=== PATIENT | female | born 1940 | race Asian ===

== ENCOUNTER 2017-09-28 09:01 | Day surgery (SDC) | payer OTHER ==
[2017-09-20 12:12] VITALS: BMI 21.9
[2017-09-28] MEDS: CIPROFLOXACIN 0.3% EYE DROPS 5 ML BOTTLE ONE ×3 (09:45→09:55)
[2017-09-28] MEDS: PHENYLEPHRINE 2.5% OPHTH SOLN 15 ML BOTTLE ONE ×3 (09:45→09:55)
[2017-09-28] MEDS: TROPICAMIDE 1% OPHTH SOLN 15 ML BOTTLE ONE ×3 (09:45→09:55)
[2017-09-28] MEDS: CYCLOPENTOLATE 2% OPHTH SOLN 2 ML BOTTLE ONE ×3 (09:45→09:55)
[2017-09-28] MEDS ORDERED: CARBACHOL 0.01% INTRA-OCULAR 1.5 ML VIAL ONE (11:01)
[2017-09-28] MEDS ORDERED: BSS (NA/CA/MG/K) BALANCED SALT SOLUTION OPHTH SOLN 15 ML BOTTLE ONE (11:01)
[2017-09-28] MEDS ORDERED: NEO/POLYMYX B SULF/DEXAMETH OPHTHALMIC 5ML BOTTLE ONE (11:01)
[2017-09-28] MEDS ORDERED: MIDAZOLAM HCL 2 MG/2 ML SINGLE DOSE VIAL ONE (11:06)
[2017-09-28 12:07] VITALS: BP 116/74; PULSE 62; TEMP 98.2
--- NOTE | 2017-09-28 12:22 | OP ---
DATE OF PROCEDURE: 09/28/2017 OPERATIVE PROCEDURE: Lens Phacoemulsification with Posterior Chamber Intraocular Lens Placement Left Eye PREOPERATIVE DIAGNOSIS: Visually Significant Cataract of Left Eye POSTOPERATIVE DIAGNOSIS: Visually Significant Cataract of Left Eye SURGEON: Rock Rocha M.D. ANESTHESIA: MAC ANESTHESIOLOGIST: PROCEDURE: The patient was brought to the operating room and placed under monitored anesthesia care by Anesthesia. A drop of Tetracaine was then placed over the left eye. The patient was then prepped and draped in the usual sterile manner. A speculum was then placed over the left eye. The eye was then well irrigated with copious amounts of BSS (balanced salt solution). The operating microscope was then moved into position. A paracentesis was performed using a 15 degree blade. At this point 0.5 mL of 1% preservative-free lidocaine was injected into the anterior chamber. Amvisc plus was then injected into the anterior chamber. A clear corneal incision was then formed using a 2.2 mm keratome. A capsulorrhexis was then performed in a continuous circular fashion beginning with a cystotome, completed with an Utratas forceps. Hydrodissection was then performed using BSS on a cannula. The phaco probe was then introduced through the corneal wound and the cataract was removed using the phaco chop technique. Approximately 3 seconds of absolute phaco time was used. The remaining cortex was then removed using irrigation and aspiration with an I/A probe. The capsule was then filled with regular Amvisc and the capsule was noted to be intact. A previously selected foldable posterior chamber intraocular lens was then injected into the capsule through the corneal wound using a lens injector. It was then dialed into position using a Sinskey hook. The Amvisc was then removed using irrigation and aspiration. Miostat was then injected through the paracentesis to constrict the pupil. The paracentesis and corneal wound were then hydrated and noted to be water tight. A drop of Maxitrol was then placed over the eye. The speculum was removed and clear shield was taped over the eye. The patient tolerated the procedure well and there were no surgical complications. The patient was asked to follow up in my office the next day. ROCK ROCHA M.D. RYAN/[id number]
== END 2017-09-28 12:09 | disposition home or self-care (01) ==
LOC: FASU 09:01
PROVIDERS: ATTEND Ophthalmology
PROC: 08RK3JZ Replacement of Left Lens with Synthetic Substitute, Percutaneous Approach (ICD-10-PCS; principal; 2017-09-28 11:21)
DX: H26.8 Other specified cataract (principal)

== ENCOUNTER 2018-04-09 10:27 | Inpatient (IN) | payer OTHER ==
--- NOTE | 2018-04-09 11:00 | PDOC ---
History of Present Illness - General Stated Complaint: POSSIBLE STROKE Time Seen by Provider: 04/09/18 11:00 - History of Present Illness Initial Comments: 77 year old female with PMH of TIA (a few years in the past), HTN, Hypothyroidism, GERD, severe vertigo, and HLD presenting with difficulty expressing herself since 8:30 Am. She woke up this morning and felt well until she tried to get out of bed when her vertigo presented with great intensity. She took her meclizine, layed back down and states that around 8:30 she began to feel weak and felt that her speech was altered in that she had difficulty finding the correct words. She also admitted to some paresthesias down her legs bilaterally with right worse than left. She has been slightly improved since it started but she is still having some mild difficulty finding the correct words. She is only on aspirin and no other blood thinners. She did have a headache developing during our conversation that she did not have earlier. Denies any fevers, chills, nausea, vomiting,diarrhea, or other symptoms. 04/09/18 11:17 NIH Stroke Scale - Last Known Well Date/Time & Onset Date Last Known Well: 04/09/18 Time Last Known Well: 08:29 - Initial Evaluation Level of consciousness: Alert Ask patient the month and their age: Answers both correctly Ask patient to open & close eyes; make fist and let go: Obeys both correctly Best gaze (horizontal eye movement): Normal Visual field testing: No visual field loss Facial paresis (Show teeth/raise eyebrows/close eyes tight): Normal symmetrical movement Motor Function: Left Arm: Normal Motor Function: Right Arm: Normal (extends arm 90 (or 45) degrees for 10 seconds without drift Motor Function: Left Leg: Normal (extends leg 30 degrees for 5 seconds without drift) Motor Function: Right Leg: Normal (extends leg 30 degrees for 5 seconds without drift) Limb Ataxia: No ataxia Sensory(Use pinprick test arms,legs,trunk,face/side to side): Normal Best language (Describe picture, name items, read sentences): Mild to moderate aphasia Dysarthria (read several words): Normal articulation Extinction and Inattention: No abnormality (No obvious aphasia noted on the exam but patient claims that she is having difficulty finding the correct words. ) - Total Score NIH Stroke Scale Score: 1 Past History - Past Medical History Allergies/Adverse Reactions: Allergies Allergy/AdvReac Type Severity Reaction Status Date / Time ezetimibe [From Zetia] Allergy Intermediate Rash Verified 04/09/18 11:06 hydrochlorothiazide Allergy Intermediate Rash Verified 04/09/18 11:06 Sulfa (Sulfonamide Allergy Intermediate Rash Verified 04/09/18 11:06 Antibiotics) benzocaine Allergy Unknown UNKNOWN Verified 04/09/18 11:06 FRAGRANCES Allergy Intermediate Cough Uncoded 04/09/18 11:06 Home Medications: Ambulatory Orders Levothyroxine [Synthroid -] 75 mcg PO DAILY 04/09/18 Losartan Potassium 100 mg PO DAILY 04/09/18 Metoprolol Tartrate 100 mg PO DAILY 04/09/18 Nifedipine ER [Procardia XL -] 30 mg PO DAILY 04/09/18 Ranitidine [Zantac -] 150 mg PO BID 04/09/18 Rosuvastatin Calcium [Crestor] 10 mg PO DAILY 04/09/18 Clopidogrel Bisulfate [Plavix -] 75 mg PO DAILY #30 tablet 04/10/18 Anemia: Yes Asthma: No Cancer: No Cardiac Disorders: Yes (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) CVA: No COPD: No CHF: No Dementia: No Diabetes: No GI Disorders: Yes (GERD) Disorders: No HTN: Yes Hypercholesterolemia: Yes Liver Disease: No Seizures: No Thyroid Disease: Yes - Surgical History Abdominal Surgery: No Appendectomy: Yes (EARLY ) Cardiac Surgery: No Cholecystectomy: No Lung Surgery: No Neurologic Surgery: No Orthopedic Surgery: Yes (LEFT shoulder arthroscopy 2007) - Immunization History Immunization Up to Date: Yes - Suicide/Smoking/Psychosocial Hx Smoking Status: No Smoking History: Never smoked Have you smoked in the past 12 months: No Number of Cigarettes Smoked Daily: 0 Hx Alcohol Use: No Drug/Substance Use Hx: No Substance Use Type: None Hx Substance Use Treatment: No Review of Systems - Review of Systems Constitutional: No: Diaphoresis, Fever, Loss of Appetite HEENTM: No: Blurred Vision, Tearing, Cataracts Respiratory: No: Cough, Orthopnea, Shortness of Breath Cardiac (ROS): No: Chest Pain, Edema, Irregular Heart Rate ABD/GI: No: Diarrhea, Nausea, Vomiting : No: Dysuria, Discharge, Frequency Musculoskeletal: No: Back Pain, Joint Pain, Joint Swelling Integumentary: No: Bruising, Lesions, Lumps Neurological: Yes: Headache, Paresthesia, Other (aphasia). No: Numbness, Pre- Existing Deficit Psychiatric: No: Anxiety, Depression Hematologic/Lymphatic: No: Anemia, Blood Clots, Easy Bleeding *Physical Exam - Physical Exam General Appearance: Yes: Nourished, Appropriately Dressed. No: Apparent Distress HEENT: positive: EOMI, MARIA C, Normal ENT Inspection, Normal Voice Neck: positive: Trachea midline, Normal Thyroid, Supple. negative: Tender, Rigid Respiratory/Chest: positive: Lungs Clear, Normal Breath Sounds. negative: Chest Tender, Respiratory Distress, Accessory Muscle Use Cardiovascular: positive: Regular Rhythm, Regular Rate Gastrointestinal/Abdominal: positive: Normal Bowel Sounds, Flat, Soft. negative : Tender Lymphatic: negative: Adenopathy, Tenderness Musculoskeletal: positive: Normal Inspection. negative: CVA Tenderness Extremity: positive: Normal Capillary Refill, Normal Inspection, Normal Range of Motion. negative: Tender Integumentary: positive: Normal Color, Dry, Warm Neurologic: positive: Fully Oriented, Alert, Normal Mood/Affect, Normal Response , Motor Strength / ED Treatment Course - LABORATORY CBC & Chemistry Diagram: 04/10/18 05:30 04/10/18 05:30 Medical Decision Making - Medical Decision Making 77 year old with history of TIA presenting with bilateral numbness of legs and speech difficulty concerning for CVA. Andre infante was called and patient was expedited to CT scan which was ultimately negative for acute bleed. Labs also were WNL. Discussed the case with neurology on the phone and they felt that this patient should come into the hospital for further workup. Patient was given asa and statin. Neurology came to examine the patient and patient was admitted to medicine service fur further workup. 04/09/18 11:59 *DC/Admit/Observation/Transfer Diagnosis at time of Disposition: Cerebrovascular accident (CVA) Qualifiers: CVA mechanism: unspecified Qualified Code(s): I63.9 - Cerebral infarction, unspecified - Discharge Dispostion Disposition: VNS/HOME HEALTH CARE Condition at time of disposition: Good Decision to Admit order: Yes - Prescriptions - Referrals - Patient Instructions - Post Discharge Activity
[2018-04-09] MEDS ORDERED: ACETAMINOPHEN 1000 MG/100 ML VIAL (NON FORMULARY) IVPB ONE (11:25)
--- NOTE | 2018-04-09 11:36 | PDOC ---
Attending Attestation - Resident Resident Name: Pete Damon - ED Attending Attestation I have performed the following: I have examined & evaluated the patient, The case was reviewed & discussed with the resident, I agree w/resident's findings & plan, Exceptions are as noted - HPI HPI: 04/09/18 12:13 The patient is a 74 year old female with a significant past medical history of PMH of TIA (a few years in the past), HTN, Hypothyroidism, GERD, severe vertigo , and HLD who presents to the ED complaining of difficulty speaking, generalized weakness, room spinning dizziness, and RLE numbness and cold sensation. The patient notes these symptoms arose around 8:30 Am when she was trying to get out of bed. She reports to have a difficult time speaking and finding the right words. She reports to feel overall weak. Of note, the previous TIA presentation presented with amnesia for a few hours. The patient denies chest pain, shortness of breath. Denies fever, chills, nausea, vomit, diarrhea and constipation. Denies dysuria, frequency, urgency and hematuria. Allergies: ezetimibe, hydrochlorothiazide, & more - Physicial Exam PE: 04/09/18 11:59 GENERAL: Awake, alert, and fully oriented, in no acute distress HEAD: No signs of trauma EYES: PERRLA, EOMI, sclera anicteric, conjunctiva clear ENT: Oropharynx clear without exudates. Moist mucosa LUNGS: Breath sounds equal, clear to auscultation bilaterally. No wheezes, and no crackles HEART: Regular rate and rhythm, normal S1 and S2, no murmurs, rubs or gallops ABDOMEN: Soft, nontender, normoactive bowel sounds. No guarding, no rebound. EXTREMITIES: Normal range of motion, no edema. No cords, erythema, or tenderness NEUROLOGICAL: very mild expressive aphasia, cranial nerves intact, negative pronator drift, 5/5 strength in all 4 extremities, normal sensation to light touch in all 4 extremities, normal cerebellar exam, normal gait, normal tone - Medical Decision Making 04/09/18 12:09 77yo F hx TIA, HL, HTN, hypothyroidism, vertigo presents to the ED with improving expressive aphasia and resolved RLE numbness. Pt also reports R sided headache and vertiginous sxs. Initially hypertensive to 160/90, but BP down to 130s systolic at this time. Exam with very mild expressive aphasia, otherwise neuro intact. Son at bedside states aphasia a few hours ago was worse, now is almost resolved. CTH negative. DDx includes CVA vs TIA vs atypical migraine. Will hold off on TPA given low NIHSS. ABCD2 score @ moderate risk. Plan: -labs -neuro c/s -treat headache -admit Heart Score/ECG Review #1 04/09/18 12:08 Twelve-lead EKG was performed and reviewed by me. Normal sinus rhythm, rate 65. Normal axis. No ST elevations. Diffuse T-wave flattening. When compared to EKG from October 2014, no significant change.
[2018-04-09] MEDS ORDERED: ACETAMINOPHEN INJECTION 100 ML IVPB ONE (11:39)
--- NOTE | 2018-04-09 11:44 | PDOC ---
tPA Exclusion Checklist 0-3hr - Time Elapsed Date last known well: 04/09/18 Time last known well: 08:29 Elaspsed time: Day(s) and 3 Hour(s) and 10 Minutes - Thrombolytic Therapy Candidate Is the patient eligible for Thrombolytic Therapy?: No - Exclusion Criteria 0-3hr SBP greater than 185 or DBP greater than 110mmHg despite tx: No Recent IC/spinal surgery,head trauma or stroke w/in last 3mo: No Hx of previous IC hemorrhage, IC neoplasm, AVM or aneurysm: No Active internal bleeding: No Blding diathesis(low plt ct, inc PTT,INR>1.7 or use of NOAC): No Symptoms suggest subarachnoid hemorrhage: No CT demonstrates multilobar infarct(>1/3 cerebral hemiphere): No Arterial puncture at noncompressible site in previous 7 days: No Blood glucose concentration less than 50mg/dL (2.7mmol/L): No - Relative Exclusion Criteria 0-3h Life expectancy <1yr/severe co-morbid illness/[employer] on admit: No : No Patient/family refused: No Rapid improvement: No Stroke severity too mild: No Recent acute KS (w/in previous 3 months): No Seizure at onset with postictal residual neuro impairments: No Major surgery or serious trauma w/in previous 14 days: No Recent GI or hemorrhage (w/in previous 21 days): No - Ineligibility reason(s) Reasons No tPA given: See reason(s) noted above (Low stroke score and questionable true aphasia, discussed with neurology.)
[2018-04-09] MEDS: SODIUM CHLORIDE 1,000 ML IV SCH (11:45)
[2018-04-09 11:51] LABS: BASO % 0.9 % (0-2.0); EOS % 2.2 % (0-4.5); HEMATOCRIT 35.1 % (32.4-45.2); LYMPH % 11.5 % (8-40); MCH 30.7 pg (25.7-33.7); MCHC 34.3 g/dl (32.0-36.0); MEAN CELL VOLUME 89.6 fl (80-96); NEUT % 78.4 % (42.8-82.8); PLATELET COUNT 158 K/MM3 (134-434); RBC 3.92 M/mm3 (3.60-5.2); RDW 13.8 % (11.6-15.6); WHITE BLOOD COUNT 6.5 K/mm3 (4.0-10.0)
[2018-04-09] MEDS ORDERED: ASPIRIN 81 MG CHEWABLE TABLETS PO ONE (11:52)
[2018-04-09] MEDS ORDERED: ATORVASTATIN CA 40 MG TABLET (FP) PO ONE (11:58)
[2018-04-09 12:03] LABS: INR 1.02 (0.83-1.09)
[2018-04-09] MEDS ORDERED: ASPIRIN 81 MG CHEWABLE TABLETS ONE (12:10)
[2018-04-09] MEDS ORDERED: ATORVASTATIN CA 40 MG TABLET (FP) ONE (12:10)
[2018-04-09 12:36] LABS: ALK PHOS 94 U/L (45-117); ANION GAP 4 MMOL/L (8-16); BILIRUBIN,TOTAL 0.9 mg/dL (0.2-1); BLOOD UREA NITROGEN 21 mg/dL (7-18); CALCIUM 9.4 mg/dL (8.5-10.1); CHLORIDE 110 mmol/L (98-107); CHOLESTEROL 187 mg/dL (50-200); CO2 27 mmol/L (21-32); CREATININE 0.9 mg/dL (0.55-1.3); GLUCOSE,RANDOM 102 mg/dL (74-106); HDL CHOLESTEROL 90 mg/dL (40-60); POTASSIUM 4.2 mmol/L (3.5-5.1); SGOT/AST 22 U/L (15-37); SGPT/ALT 24 U/L (13-61); SODIUM 141 mmol/L (136-145); TRIGLYCERIDES 66 mg/dL (0-150)
--- NOTE | 2018-04-09 14:05 | CON.NEURO ---
Consult Consult Specialty:: NEUROLOGY-[facility] - History of Present Illness History of Present Illness: he patient is a 74 year old female with a significant past medical history of PMH of TIA x 2, hypercalcemia/hyperparathyroidism, HTN, Hypothyroidism, GERD, severe vertigo episodic x years which appears to be peripheral by her description rx.with meclizine, and HLD who presents to the ED complaining of difficulty speaking, generalized weakness, room spinning (vertigo), and RLE numbness and cold sensation . The patient notes these symptoms arose around 8: 30 Am when she was trying to get out of bed. She reports to have a difficult time speaking and finding the right words. She reports to feel overall weak. Of note, the previous TIA presentation presented with amnesia for a few hours. This morning she tells me she had about an hour of "difficulty getting words out "(unclear whether dysarthria or aphasia), numbness/tingling in both legs, and ? ? weakness. All these resolved in less than 2 hours. The patient denies chest pain, shortness of breath. Denies fever, chills, nausea, vomit, diarrhea and constipation. Denies dysuria, frequency, urgency and hematuria. - Past Medical History Cardio/Vascular: Yes: HTN, Hyperlipdemia, Other (MVP) Musculoskeletal: Yes: Osteoarthritis Endocrine: Yes: Hypothyroidism - Alcohol/Substance Use Hx Alcohol Use: No - Smoking History Smoking history: Never smoked Have you smoked in the past 12 months: No Aproximately how many cigarettes per day: 0 - Social History Usual Living Arrangement: With Spouse ADL: Independent History of Recent Travel: No Home Medications - Allergies Allergies/Adverse Reactions: Allergies Allergy/AdvReac Type Severity Reaction Status Date / Time ezetimibe [From Zetia] Allergy Intermediate Rash Verified 04/09/18 11:06 hydrochlorothiazide Allergy Intermediate Rash Verified 04/09/18 11:06 Sulfa (Sulfonamide Allergy Intermediate Rash Verified 04/09/18 11:06 Antibiotics) benzocaine Allergy Unknown UNKNOWN Verified 04/09/18 11:06 FRAGRANCES Allergy Intermediate Cough Uncoded 04/09/18 11:06 - Home Medications Home Medications: Ambulatory Orders Aspirin 81 mg PO DAILY 04/09/18 Levothyroxine [Synthroid -] 75 mcg PO DAILY 04/09/18 Losartan Potassium 100 mg PO DAILY 04/09/18 Metoprolol Tartrate 100 mg PO DAILY 04/09/18 Nifedipine ER [Procardia Xl -] 30 mg PO DAILY 04/09/18 Ranitidine [Zantac -] 150 mg PO BID 04/09/18 Rosuvastatin Calcium [Crestor] 10 mg PO DAILY 04/09/18 Physical Exam-Neuro Vital Signs: Vital Signs Temperature 97.4 F L 04/09/18 11:03 Pulse Rate 64 04/09/18 11:03 Respiratory Rate 18 04/09/18 11:03 Blood Pressure 162/90 04/09/18 11:03 O2 Sat by Pulse Oximetry (%) 100 04/09/18 11:03 Labs: CBC, BMP 04/09/18 11:47 04/09/18 11:47 INR, PTT INR 1.02 (0.83-1.09) 04/09/18 11:42 Imaging - Results Cat Scan: Report Reviewed (Without acute abn.) Assessment/Plan Pt. with hx. of peripheral vertigo x years, now with what is possibly a brain stem/vert.basilar TIA. Suggest: MRI brain, carotid doppler study/Echocardiogram. Would d/c ADSa and place on Plavix 75mg daily. Further manag. after above. Thank you, Michael Mcfadden MD
[2018-04-09] MEDS ORDERED: ACETAMINOPHEN 325 MG TABLET (FP) PO PRN (15:22)
--- NOTE | 2018-04-09 15:30 | HP ---
Admitting History and Physical - Primary Care Physician PCP: Eugene Payne - Admission Chief Complaint: I'm dizzy History of Present Illness: Ms Benedict is a pleasant 77 year old female who comes in with dizziness and slurred speech. She has a history of vertigo and takes meclizine for it. She woke up this morning and began to experience a severe case of vertigo. She says it was so severe she barely made it back to sit down. During this time she also noted slurred speech, however it is difficult to ascertain whether she had slurred speech or aphasia because she will say it was slurred at some point and at other times she said she had a hard time finding the words and that she had "a hard time speaking" (as it took her a lot of effort to speak/get the words out). She also noted weakness in both legs with tingling. She had nausea with the vertigo as well. She took her meclizine and since her blood pressure was elevated she also took her morning antihypertensives. Because she was having slurred speech she came into the hospital. She endorses a history of vertigo and says she needs to take meclizine about 3x a week. She also took a larger dose this morning, she normally takes 12.5mg and this am she took 25mg. She has chronic hearing loss/tinnitus, particularly in her left ear which she was told there was nothing to do. She also has chronic weakness and loss of balance with walking, stating she falls frequently with the last fall being yesterday. She has angina but did not have chest pain with this episode. She denies passing out , vision changes, shortness of breath, vomiting, diarrhea, constipation, difficulty or pain on urination, or swelling. History Source: Patient Limitations to Obtaining History: No Limitations - Past Medical History Cardiovascular: Yes: HTN, Hyperlipdemia, Other (MVP) Musculoskeletal: Yes: Osteoarthritis Endocrine: Yes: Hypothyroidism - Past Surgical History Past Surgical History: Yes: Appendectomy - Smoking History Smoking history: Never smoked Have you smoked in the past 12 months: No Aproximately how many cigarettes per day: 0 - Alcohol/Substance Use Hx Alcohol Use: No History of Substance Use: reports: None - Social History Usual Living Arrangement: Yes: With Child ADL: Independent History of Recent Travel: No Home Medications - Allergies Allergies/Adverse Reactions: Allergies Allergy/AdvReac Type Severity Reaction Status Date / Time ezetimibe [From Zetia] Allergy Intermediate Rash Verified 04/09/18 11:06 hydrochlorothiazide Allergy Intermediate Rash Verified 04/09/18 11:06 Sulfa (Sulfonamide Allergy Intermediate Rash Verified 04/09/18 11:06 Antibiotics) benzocaine Allergy Unknown UNKNOWN Verified 04/09/18 11:06 FRAGRANCES Allergy Intermediate Cough Uncoded 04/09/18 11:06 - Home Medications Home Medications: Ambulatory Orders Aspirin 81 mg PO DAILY 04/09/18 Levothyroxine [Synthroid -] 75 mcg PO DAILY 04/09/18 Losartan Potassium 100 mg PO DAILY 04/09/18 Metoprolol Tartrate 100 mg PO DAILY 04/09/18 Nifedipine ER [Procardia Xl -] 30 mg PO DAILY 04/09/18 Ranitidine [Zantac -] 150 mg PO BID 04/09/18 Rosuvastatin Calcium [Crestor] 10 mg PO DAILY 04/09/18 Family Disease History - Family Disease History Family Disease History: Other: Mother (muscular dystrophy) Review of Systems Findings/Remarks: Full review of systems obtained, as per HPI and otherwise negative Physical Examination Vital Signs: Vital Signs Temperature 36.3 C L 04/09/18 11:03 Pulse Rate 64 04/09/18 11:03 Respiratory Rate 18 04/09/18 11:03 Blood Pressure 162/90 04/09/18 11:03 O2 Sat by Pulse Oximetry (%) 100 04/09/18 11:03 Constitutional: Yes: Well Nourished, No Distress, Calm Eyes: Yes: Conjunctiva Clear, EOM Intact, PERRL HENT: Yes: Atraumatic, Normocephalic Cardiovascular: Yes: Regular Rate and Rhythm. No: Gallop, Murmur, Rub Respiratory: Yes: Regular, CTA Bilaterally. No: Rales, Rhonchi, Wheezes Gastrointestinal: Yes: Normal Bowel Sounds, Soft. No: Distention, Tenderness Extremities: Yes: WNL Edema: No ...Motor Strength: LLE (4/5) Labs: CBC, BMP 04/09/18 11:47 04/09/18 11:47 Imaging - Results Cat Scan: Report Reviewed Problem List - Problems (1) TIA (transient ischemic attack) Assessment/Plan: -possible posterior TIA vs CVA -case d/w neurology -admit to telemetry -MRI brain ordered -check ECHO and carotid ultrasound -check lipid profile in am -PT consult and fall risk precautions -change aspirin to plavix Code(s): G45.9 - TRANSIENT CEREBRAL ISCHEMIC ATTACK, UNSPECIFIED (2) Vertigo Assessment/Plan: -? peripheral vs central -as above -continue meclizine Code(s): R42 - DIZZINESS AND GIDDINESS (3) HTN (hypertension) Assessment/Plan: -continue procardia, metoprolol, and losartan -monitor Code(s): I10 - ESSENTIAL (PRIMARY) HYPERTENSION Qualifiers: Hypertension type: essential hypertension Qualified Code(s): I10 - Essential (primary) hypertension (4) Hyperlipidemia Assessment/Plan: -check lipid profile -continue crestor currently Code(s): E78.5 - HYPERLIPIDEMIA, UNSPECIFIED (5) Hypothyroidism Assessment/Plan: -continue synthroid Code(s): E03.9 - HYPOTHYROIDISM, UNSPECIFIED (6) Angina at rest Assessment/Plan: -stable Code(s): I20.8 - OTHER FORMS OF ANGINA PECTORIS
[2018-04-09] MEDS: RANITIDINE HCL 150 MG TABLET (FP) PO SCH (22:33)
[2018-04-09] MEDS ORDERED: LOSARTAN POTASSIUM 50 MG TABLET (FP) PO ONE (22:37)
[2018-04-10 01:51] VITALS: BMI 21.9
[2018-04-10 06:39] LABS: BASO % 1.2 % (0-2.0); EOS % 5.5 % (0-4.5); HEMATOCRIT 35.7 % (32.4-45.2); HEMOGLOBIN 12.3 GM/dL (10.7-15.3); LYMPH % 39.8 % (8-40); MCH 30.8 pg (25.7-33.7); MCHC 34.5 g/dl (32.0-36.0); MEAN CELL VOLUME 89.4 fl (80-96); MEAN PLT VOLUME 9.2 fl (7.5-11.1); MONO % 10.4 % (3.8-10.2); NEUT % 43.1 % (42.8-82.8); PLATELET COUNT 182 K/MM3 (134-434); RDW 13.6 % (11.6-15.6); WHITE BLOOD COUNT 4.9 K/mm3 (4.0-10.0)
[2018-04-10] MEDS ORDERED: LEVOTHYROXINE NA 75 MCG TABLET (FP) PO SCH (07:00)
[2018-04-10 07:16] LABS: URINE APPEARANCE CLEAR; URINE BILIRUBIN NEGATIVE (<2.0 mg/dL); URINE COLOR LTYELLOW; URINE GLUCOSE (UA) NEGATIVE (NEGATIVE); URINE KETONE NEGATIVE (NEGATIVE); URINE LEUK ESTERASE NEGATIVE (NEGATIVE); URINE NITRITE NEGATIVE (NEGATIVE); URINE PROTEIN NEGATIVE (NEGATIVE); URINE UROBILINOGEN NEGATIVE mg/dL (0.2-1.0)
[2018-04-10 07:20] LABS: CHOLESTEROL 193 mg/dL (50-200); HDL CHOLESTEROL 89 mg/dL (40-60); TRIGLYCERIDES 89 mg/dL (0-150)
[2018-04-10 07:36] LABS: ANION GAP 7 MMOL/L (8-16); BLOOD UREA NITROGEN 18 mg/dL (7-18); CALCIUM 9.4 mg/dL (8.5-10.1); CHLORIDE 112 mmol/L (98-107); CO2 24 mmol/L (21-32); CREATININE 0.9 mg/dL (0.55-1.3); GLUCOSE,RANDOM 94 mg/dL (74-106); MAGNESIUM 2.1 mg/dL (1.8-2.4); PHOSPHOROUS 3.3 mg/dL (2.5-4.9); POTASSIUM 3.9 mmol/L (3.5-5.1); SODIUM 143 mmol/L (136-145)
[2018-04-10] MEDS ORDERED: ASPIRIN 81 MG CHEWABLE TABLETS PO SCH (10:00)
[2018-04-10] MEDS ORDERED: METOPROLOL TARTRATE 50 MG TABLET (FP) PO SCH (10:00)
[2018-04-10] MEDS ORDERED: CLOPIDOGREL BISULFATE 75 MG TABLET (FP) PO SCH (10:00)
[2018-04-10] MEDS ORDERED: NIFEdipine E.R. 30 MG TABLET (FP) PO SCH (10:00)
[2018-04-10] MEDS ORDERED: LOSARTAN POTASSIUM 50 MG TABLET (FP) PO SCH (10:00)
[2018-04-10] MEDS: RANITIDINE HCL 150 MG TABLET (FP) PO SCH (10:25)
--- NOTE | 2018-04-10 10:37 | PN ---
Progress Note, Physician Chief Complaint: Pt sitting in bed in no acute distress. Reports feeling better. Ambulating w/ out difficulty. Pt reports she had a fall at home prior to admission, now c/o right shoulder pain. Denies any chest pain, sob, n/v/d, unilateral weakness - Current Medication List Current Medications: Active Medications Acetaminophen (Tylenol -) 650 mg PO Q4H PRN PRN Reason: FEVER Clopidogrel Bisulfate (Plavix -) 75 mg PO DAILY [facility] Last Admin: 04/10/18 10:25 Dose: 75 mg Sodium Chloride (Normal Saline -) 1,000 mls @ 42 mls/hr IV ASDIR [facility] Last Admin: 04/09/18 11:45 Dose: 42 mls/hr Levothyroxine Sodium (Synthroid -) 75 mcg PO ACBK [facility] Last Admin: 04/10/18 06:10 Dose: 75 mcg Losartan Potassium (Cozaar -) 100 mg PO DAILY [facility] Metoprolol Tartrate (Lopressor -) 100 mg PO DAILY [facility] Last Admin: 04/10/18 10:25 Dose: 100 mg Nifedipine (Procardia Xl -) 30 mg PO DAILY [facility] Last Admin: 04/10/18 10:25 Dose: 30 mg Ranitidine HCl (Zantac -) 150 mg PO BID [facility] Last Admin: 04/10/18 10:25 Dose: 150 mg Rosuvastatin Calcium (Crestor -) 10 mg PO HS [facility] - Objective Vital Signs: Vital Signs Temperature 98.0 F 04/10/18 10:24 Pulse Rate 68 04/10/18 10:24 Respiratory Rate 16 04/10/18 10:24 Blood Pressure 143/73 04/10/18 10:24 O2 Sat by Pulse Oximetry (%) 100 04/09/18 22:00 Constitutional: Yes: Well Nourished, No Distress, Calm Cardiovascular: Yes: Regular Rate and Rhythm Respiratory: Yes: WNL, Regular, CTA Bilaterally. No: Accessory Muscle Use, SOB , Tachypnea, Wheezes Gastrointestinal: Yes: WNL, Normal Bowel Sounds, Soft Genitourinary: Yes: WNL Musculoskeletal: Yes: Other (right shoulder ttp) Edema: No Neurological: Yes: WNL, Alert, Oriented. No: Confusion, Facial Droop, Lethargy Psychiatric: Yes: WNL, Alert, Oriented Labs: CBC, BMP 04/10/18 05:30 04/10/18 05:30 INR, PTT INR 1.02 (0.83-1.09) 04/09/18 11:42 Assessment/Plan (1) TIA (transient ischemic attack) Assessment/Plan: feels improved since yesterday carotid ultrasound w/ minimal plaque, stable echo w/out acute findings asa changed to plavix per neurology recs PT eval completed MRI brain pending Code(s): G45.9 - TRANSIENT CEREBRAL ISCHEMIC ATTACK, UNSPECIFIED (2) Vertigo Assessment/Plan: stable continue meclizine Code(s): R42 - DIZZINESS AND GIDDINESS (3) HTN (hypertension) Assessment/Plan: controlled continue procardia, metoprolol, and losartan Code(s): I10 - ESSENTIAL (PRIMARY) HYPERTENSION Qualifiers: Hypertension type: essential hypertension Qualified Code(s): I10 - Essential (primary) hypertension (4) Hyperlipidemia Assessment/Plan: stable LDL at goal <100 continue crestor Code(s): E78.5 - HYPERLIPIDEMIA, UNSPECIFIED (5) Hypothyroidism Assessment/Plan: continue synthroid Code(s): E03.9 - HYPOTHYROIDISM, UNSPECIFIED (6) Angina at rest Assessment/Plan: stable no acute ACS cardiology following Code(s): I20.8 - OTHER FORMS OF ANGINA PECTORIS (7) Shoulder pain, acute Assessment/Plan: s/p fall at home, pt now c/o increased pain good ROM xray shoulder ordered and reviewed, no acute fx tylenol prn Code(s): M25.519 - PAIN IN UNSPECIFIED SHOULDER Qualifiers: Laterality: right Qualified Code(s): M25.511 - Pain in right shoulder Dispo: home w/ VNS, pending MRI
--- NOTE | 2018-04-10 11:00 | EKG ---
Test Reason : Blood Pressure : / mmHG Vent. Rate : 066 BPM Atrial Rate : 066 BPM P-R Int : 124 ms QRS Dur : 074 ms QT Int : 384 ms P-R-T Axes : 081 022 006 degrees QTc Int : 402 ms NORMAL SINUS RHYTHM NORMAL ECG WHEN COMPARED WITH ECG OF 27-OCT-2014 09:47, NO SIGNIFICANT CHANGE WAS FOUND Confirmed by FRANCO LOMELI MD ([id number]) on 04/10/2018 11:00:01 AM Referred By: Confirmed By:FRANCO LOMELI MD
--- NOTE | 2018-04-10 12:04 | ECHO ---
Name: ABBY GABRIEL Exam:Adult Echocardiogram Study Date: 04/10/2018 08:37 AM Age: 77 yrs Reason For Study: POSSIBLE CVA Height: 62 in Weight: 118 lb BSA: 1.5 m2 MMode/2D Measurements & Calculations IVSd: 0.79 cm Ao root diam: 2.7 cm LVIDd: 4.0 cm LA dimension: 3.6 cm LVIDs: 2.2 cm ACS: 1.2 cm LVPWd: 0.85 cm IVSs: 1.1 cm LVPWs: 1.1 cm EDV(Teich): 69.6 ml ESV(Teich): 16.4 ml Doppler Measurements & Calculations MV E max kush: 99.0 cm/sec Ao V2 max: 155.6 cm/sec MV A max kush: 56.5 cm/sec Ao max P.7 mmHg MV E/A: 1.8 Ao V2 mean: 111.2 cm/sec Ao mean P.6 mmHg Ao V2 VTI: 33.7 cm MR max kush: 397.7 cm/sec TR max kush: 235.3 cm/sec MR max P.3 mmHg TR max P.2 mmHg Med Peak E' Kush: 8.7 cm/sec Med E/e': 11.4 Lat Peak E' Kush: 6.1 cm/sec Lat E/e': 16.1 Procedure A complete two-dimensional transthoracic echocardiogram was performed (2D, M-mode, Doppler and color flow Doppler). Left Ventricle The left ventricle is normal in size. Left ventricular systolic function is normal. Ejection Fraction = 65- 70%. No regional wall motion abnormalities noted. Right Ventricle The right ventricle is normal size. The right ventricular systolic function is normal. Atria The left atrial size is normal. Right atrial size is normal. Mitral Valve There is mild mitral valve thickening. There is moderate mitral regurgitation. Tricuspid Valve The tricuspid valve is normal in structure and function. There is moderate tricuspid regurgitation. P ulmonary artery systolic pressure is at least 33 mmHg assuming RA pressure of 3 mmHg. Aortic Valve There is mild aortic sclerosis.;. No aortic regurgitation is present. Pulmonic Valve The pulmonic valve is not well visualized. Great Vessels The aortic root is normal size. Pericardium/Pleura There is no pericardial effusion. Interpretation Summary The left ventricle is normal in size. Left ventricular systolic function is normal. No regional wall motion abnormalities noted. Ejection Fraction = 65-70%. The right ventricular systolic function is normal. The left atrial size is normal. Right atrial size is normal. There is mild mitral valve thickening. There is moderate mitral regurgitation. There is moderate tricuspid regurgitation. Pulmonary artery systolic pressure is at least 33 mmHg assuming RA pressure of 3 mmHg There is mild aortic sclerosis. There is no pericardial effusion. Previous study is not available for comparison Allen Zuñiga MD 04/10/2018 12:04 PM
--- NOTE | 2018-04-10 12:09 | CON.CARD ---
Consult Consult Specialty:: Cardiology Reason for Consultation:: TIA - History of Present Illness History of Present Illness: The patient is a 74 year old female with a significant past medical history of PMH of TIA (a few years in the past), HTN, Hypothyroidism, GERD, severe vertigo , and HLD who presents to the ED complaining of difficulty speaking, generalized weakness, room spinning dizziness, and RLE numbness and cold sensation. The patient notes these symptoms arose around 8:30 Am when she was trying to get out of bed. She reports to have a difficult time speaking and finding the right words. She reports to feel overall weak. Of note, the previous TIA presentation presented with amnesia for a few hours. The patient denies chest pain, shortness of breath. Denies fever, chills, nausea, vomit, diarrhea and constipation. Denies dysuria, frequency, urgency and hematuria. Allergies: ezetimibe, hydrochlorothiazide, & more - History Source History Provided By: Patient, Medical Record - Past Medical History Cardio/Vascular: Yes: CAD, HTN, Hyperlipdemia, Other (MVP) ...: No Musculoskeletal: Yes: Osteoarthritis Endocrine: Yes: Hypothyroidism - Past Surgical History Past Surgical History: Yes: Appendectomy - Alcohol/Substance Use Hx Alcohol Use: No History of Substance Use: reports: None - Smoking History Smoking history: Never smoked Have you smoked in the past 12 months: No Aproximately how many cigarettes per day: 0 - Social History Usual Living Arrangement: With Spouse ADL: Independent History of Recent Travel: No Home Medications - Allergies Allergies/Adverse Reactions: Allergies Allergy/AdvReac Type Severity Reaction Status Date / Time ezetimibe [From Zetia] Allergy Intermediate Rash Verified 04/09/18 11:06 hydrochlorothiazide Allergy Intermediate Rash Verified 04/09/18 11:06 Sulfa (Sulfonamide Allergy Intermediate Rash Verified 04/09/18 11:06 Antibiotics) benzocaine Allergy Unknown UNKNOWN Verified 04/09/18 11:06 FRAGRANCES Allergy Intermediate Cough Uncoded 04/09/18 11:06 - Home Medications Home Medications: Ambulatory Orders Aspirin 81 mg PO DAILY 04/09/18 Levothyroxine [Synthroid -] 75 mcg PO DAILY 04/09/18 Losartan Potassium 100 mg PO DAILY 04/09/18 Metoprolol Tartrate 100 mg PO DAILY 04/09/18 Nifedipine ER [Procardia Xl -] 30 mg PO DAILY 04/09/18 Ranitidine [Zantac -] 150 mg PO BID 04/09/18 Rosuvastatin Calcium [Crestor] 10 mg PO DAILY 04/09/18 Family Disease History - Family Disease History Family Disease History: Other: Mother (muscular dystrophy) Review of Systems - Review of Systems Constitutional: reports: No Symptoms Eyes: reports: No Symptoms HENT: reports: No Symptoms Neck: reports: No Symptoms Cardiovascular: reports: No Symptoms Gastrointestinal: reports: No Symptoms Genitourinary: reports: No Symptoms Breasts: reports: No Symptoms Reported Musculoskeletal: reports: No Symptoms Integumentary: reports: No Symptoms Neurological: reports: Dizziness Endocrine: reports: No Symptoms Hematology/Lymphatic: reports: No Symptoms Psychiatric: reports: No Symptoms Vital Signs: Vital Signs Temperature 98.0 F 04/10/18 10:24 Pulse Rate 68 04/10/18 10:24 Respiratory Rate 16 04/10/18 10:24 Blood Pressure 143/73 04/10/18 10:24 O2 Sat by Pulse Oximetry (%) 100 04/09/18 22:00 Constitutional: Yes: Well Nourished, No Distress, Calm Eyes: Yes: WNL, Conjunctiva Clear, EOM Intact HENT: Yes: WNL, Atraumatic, Normocephalic Neck: Yes: WNL, Supple, Trachea Midline Respiratory: Yes: WNL, Regular, CTA Bilaterally Gastrointestinal: Yes: WNL, Normal Bowel Sounds Renal/: Yes: WNL Cardiovascular: Yes: WNL, Regular Rate and Rhythm Musculoskeletal: Yes: WNL Extremities: Yes: WNL Integumentary: Yes: WNL Neurological: Yes: WNL, Alert, Oriented ...Motor Strength: WNL Psychiatric: Yes: WNL, Alert, Oriented - Other Data Labs, Other Data: CBC, BMP 04/10/18 05:30 04/10/18 05:30 INR, PTT INR 1.02 (0.83-1.09) 04/09/18 11:42 Troponin, BNP 04/09/18 11:47 Troponin I < 0.02 Troponin, BNP 04/09/18 11:47 Troponin I < 0.02 Imaging - Results Chest X-ray: Pending EKG: Image Reviewed (sr wnl) Problem List - Problems (1) Angina at rest Code(s): I20.8 - OTHER FORMS OF ANGINA PECTORIS (2) TIA (transient ischemic attack) Code(s): G45.9 - TRANSIENT CEREBRAL ISCHEMIC ATTACK, UNSPECIFIED (3) Vertigo Code(s): R42 - DIZZINESS AND GIDDINESS (4) Cervical radiculopathy Code(s): M54.12 - RADICULOPATHY, CERVICAL REGION (5) Chest pain Code(s): R07.9 - CHEST PAIN, UNSPECIFIED Qualifiers: Chest pain type: unspecified Qualified Code(s): R07.9 - Chest pain, unspecified (6) Contusion of hip and thigh Code(s): S70.00XA - CONTUSION OF UNSPECIFIED HIP, INITIAL ENCOUNTER; S70.10XA - CONTUSION OF UNSPECIFIED THIGH, INITIAL ENCOUNTER (7) HTN (hypertension) Code(s): I10 - ESSENTIAL (PRIMARY) HYPERTENSION Qualifiers: Hypertension type: essential hypertension Qualified Code(s): I10 - Essential (primary) hypertension (8) Hyperlipidemia Code(s): E78.5 - HYPERLIPIDEMIA, UNSPECIFIED (9) Hypothyroidism Code(s): E03.9 - HYPOTHYROIDISM, UNSPECIFIED (10) Strain of pelvis Code(s): S39.013A - STRAIN OF MUSCLE, FASCIA AND TENDON OF PELVIS, INIT ENCNTR Assessment/Plan Dizziness TIA cardiac cath [place] 05-26-17 left main patent, distal LAD 30%, LCx luminal irregularities, proximal RCA 30%- anterior take off Ongoing medical problems C. Cath nonobstructive ASHD 2008 HTN Hyperlipidemia Mild to moderate MR 2013 MVP 2000 Negative MIBI stress test 2014 TIA hypothyroidism Moderate MR August 2016 Plan asa replaced with Plavix as per neuro cont telemetry w/u pending mri carotid duplex echo
[2018-04-10] MEDS: SODIUM CHLORIDE 1,000 ML IV SCH (15:27)
--- NOTE | 2018-04-10 16:21 | DS ---
Physical Examination Vital Signs: Vital Signs Temperature 97.3 F L 04/10/18 14:43 Pulse Rate 66 04/10/18 14:43 Respiratory Rate 18 04/10/18 14:43 Blood Pressure 134/71 04/10/18 14:43 O2 Sat by Pulse Oximetry (%) 100 04/10/18 09:00 Labs: CBC, BMP 04/10/18 05:30 04/10/18 05:30 Discharge Summary Reason For Visit: SUSPECTED CEREBROVASCULAR ACCIDENT (CVA) Current Active Problems Angina at rest (Acute) Shoulder pain, acute (Acute) TIA (transient ischemic attack) (Acute) Vertigo (Acute) Hospital Course: 77 year old female admitted for evaluation of suspected TIA/CVA. Pt presented w / dizziness/slurred speech which resolved. All neuro work up negative. MRI brain completed and reviewed, no acute findings. Suspect possible exacerbation of vertigo. Pt evaluated by PT, tolerated. Pt evaluated by neurology. Asa changed to plavix, to continue crestor, lipid panel stable. Shoulder xray done for pain s/p fall, w/out fx. Pt is medically stable for discharge home. follow up as directed Condition: Good - Instructions Diet, Activity, Other Instructions: resume prev diet, activity fall precautions stop asa, start plavix Referrals: Eugene Payne MD [Staff Physician] - 1 Week Marcus Rivera MD [Staff Physician] - Disposition: VNS/HOME HEALTH CARE - Home Medications Comprehensive Discharge Medication List: Ambulatory Orders Levothyroxine [Synthroid -] 75 mcg PO DAILY 04/09/18 Losartan Potassium 100 mg PO DAILY 04/09/18 Metoprolol Tartrate 100 mg PO DAILY 04/09/18 Nifedipine ER [Procardia XL -] 30 mg PO DAILY 04/09/18 Ranitidine [Zantac -] 150 mg PO BID 04/09/18 Rosuvastatin Calcium [Crestor] 10 mg PO DAILY 04/09/18 Clopidogrel Bisulfate [Plavix -] 75 mg PO DAILY #30 tablet 04/10/18
[2018-04-10 18:25] VITALS: BP 119/59; PULSE 63; TEMP 97.9
[2018-04-10] MEDS ORDERED: ROSUVASTATIN CA 10 MG TABLET (FP) PO SCH (22:00)
--- NOTE | 2018-04-11 15:50 | EKG ---
Test Reason : Blood Pressure : / mmHG Vent. Rate : 065 BPM Atrial Rate : 065 BPM P-R Int : 134 ms QRS Dur : 076 ms QT Int : 390 ms P-R-T Axes : 034 027 009 degrees QTc Int : 405 ms NORMAL SINUS RHYTHM NONSPECIFIC T WAVE ABNORMALITY ABNORMAL ECG WHEN COMPARED WITH ECG OF 09-APR-2018 10:45, NO SIGNIFICANT CHANGE WAS FOUND Confirmed by Sonny Rae ([id number]) on 04/11/2018 3:50:14 PM Referred By: Confirmed By:Sonny Rae
== END 2018-04-10 18:36 | disposition home health service (06) | DRG 69 ==
LOC: JER 10:27 → UNDOADMIN 13:21 → JERBED 13:21 → J4W 20:31
PROVIDERS: ADMIT Internal Medicine; ATTEND Nurse Practitioner Family
DX: G45.9 Transient cerebral ischemic attack, unspecified (principal); I10 Essential (primary) hypertension; E03.9 Hypothyroidism, unspecified; K21.9 Gastro-esophageal reflux disease without esophagitis; E78.5 Hyperlipidemia, unspecified; I34.1 Nonrheumatic mitral (valve) prolapse; E78.00 Pure hypercholesterolemia, unspecified; I20.8 Other forms of angina pectoris; H81.399 Other peripheral vertigo, unspecified ear; M19.90 Unspecified osteoarthritis, unspecified site; W19.XXXA Unspecified fall, initial encounter; M25.511 Pain in right shoulder; Z86.73 Personal history of transient ischemic attack (TIA), and cerebral infarction without residual deficits
CPT/HCPCS: 36415; 70450-TC; 70551-TC; 73030-TC-RT-FY; 80048; 80053; 80061; 81003; 82465; 82550; 82553; 83718; 83721; 83735; 84100; 84478; 84484; 85025; 85610; 86850; 86900; 86901; 93005; 93010; 93306-TC; 93880-TC; 97116-GP; 97161-GP; 99285-25; J0131; J7030

== ENCOUNTER 2018-07-21 09:24 | Day surgery (SDC) | payer OTHER | END 2018-07-21 13:05 | disposition home or self-care (01) | LOC: JASU-ENDO 09:24 ==

== ENCOUNTER 2018-08-21 22:56 | Observation (INO) | payer OTHER ==
--- NOTE | 2018-08-21 23:00 | PDOC ---
History of Present Illness - General Stated Complaint: CHEST PAIN Time Seen by Provider: 08/21/18 22:59 - History of Present Illness Initial Comments: 08/21/18 23:11 The patient is a 77 year old female with a history of HTN, HLD, TIA, Anemia, Hypothyroidism, GERD who presents for evaluation of chest pain. The patient reports onset of left sided chest pain that she describes as a heaviness earlier this evening with radiation to her left arm. She states that she took 2 SL nitro without improvement in her symptoms and her symptoms have remained persistent prompting her presentation to the ED for further evaluation. She notes some associated shortness of breath as well as lightheadedness. She otherwise denies fevers, chills, nausea, vomiting, abdominal pain, or changes with urination or bowel movements. Past History - Past Medical History Allergies/Adverse Reactions: Allergies Allergy/AdvReac Type Severity Reaction Status Date / Time ezetimibe [From Zetia] Allergy Intermediate Rash Verified 08/21/18 23:43 hydrochlorothiazide Allergy Intermediate Rash Verified 08/21/18 23:43 Sulfa (Sulfonamide Allergy Intermediate Rash Verified 08/21/18 23:43 Antibiotics) benzocaine Allergy Unknown UNKNOWN Verified 08/21/18 23:43 FRAGRANCES Allergy Intermediate Cough Uncoded 08/21/18 23:43 Home Medications: Ambulatory Orders Levothyroxine [Synthroid -] 75 mcg PO DAILY 04/09/18 Losartan Potassium 100 mg PO DAILY 04/09/18 Metoprolol Tartrate 100 mg PO DAILY 04/09/18 Nifedipine ER [Procardia XL -] 30 mg PO DAILY 04/09/18 Rosuvastatin Calcium [Crestor] 10 mg PO DAILY 04/09/18 Aspirin 81 mg PO DAILY 07/20/18 Lifitegrast [Xiidra] 1 each OP BID 07/20/18 Meclizine HCl 12.5 mg PO TID 07/20/18 Mag Carb/Aluminum Hydrox/Algin [Gaviscon Liquid] 15 - 30 ml PO Q4H PRN 30 Days # 355 oz 07/21/18 Pantoprazole Sodium 40 mg PO DAILY #30 tablet. 07/21/18 Anemia: Yes Asthma: No Cancer: No Cardiac Disorders: Yes (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) CVA: Yes (TIA) COPD: No CHF: No Dementia: No Diabetes: No GI Disorders: Yes (GERD,M HIATAL HERNIA WITH NERD, GASTRITIS) Disorders: No HTN: Yes Hypercholesterolemia: Yes Liver Disease: No Seizures: No Thyroid Disease: Yes (HYPOTHYROIDISM) - Surgical History Abdominal Surgery: No Appendectomy: Yes (EARLY 60S) Cardiac Surgery: No (CARDIAC CATH 2008; NORMAL PER PT) Cholecystectomy: No Lung Surgery: No Neurologic Surgery: No Orthopedic Surgery: Yes (LEFT shoulder arthroscopy 2007) - Immunization History Immunization Up to Date: Yes - Suicide/Smoking/Psychosocial Hx Smoking Status: No Smoking History: Never smoked Have you smoked in the past 12 months: No Number of Cigarettes Smoked Daily: 0 Hx Alcohol Use: No Drug/Substance Use Hx: No Substance Use Type: None Hx Substance Use Treatment: No Review of Systems - Review of Systems Comments:: 08/21/18 23:14 Constitutional: No fevers, chills, fatigue, malaise HEENT: No Rhinorrhea, nasal congestion, visual changes Cardiovascular: Chest pain, lightheadedness. No syncope, palpitations, Respiratory: SOB. No Cough, Hemoptysis, Gastrointestinal: No Abdominal pain, Nausea, Vomiting, Constipation, Diarrhea, Melena Genitourinary: No Dysuria, Frequency, Urgency, Hesitancy, Hematuria, Flank pain Musculoskeletal: No Myalgia, arthralgia Skin: No rashes, itching, bruising, pallor Neurologic: No Headache, Dizziness, Numbness, Weakness, or Tingling Psychiatric: No Hallucinations. No SI or HI *Physical Exam - Physical Exam Comments: 08/21/18 23:14 General Appearance: Nourished. No Apparent Distress HEENT: EOMI, MARIA C. No Pharyngeal Erythema, Tonsillar Exudate, Tonsillar Erythema Neck: No Cervical Lymphadenopathy Respiratory/Chest: Lungs Clear, Normal Breath Sounds. No Crackles, Rales, Rhonchi, Wheezing Cardiovascular: Regular Rhythm, Regular Rate. No Murmur, Gallops, Rubs Gastrointestinal/Abdominal: Normal Bowel Sounds, Soft. No Guarding, Rebound, Tenderness Musculoskeletal: No CVA Tenderness Extremity: Normal Capillary Refill Integumentary: Normal Color, Dry, Warm Neurologic: Fully Oriented, Alert, Normal Mood/Affect, Normal Response, Heart Score/ECG Review - History History: Moderately suspicious - Electrocardiogram EKG: Non specific repolarization disturbance - Age Age: >/= 65 - Risk Factors Risk Factors Heart Score: Yes Hx Hypercholesterolemia, Yes Hx Hypertension Based on the list above the patient has:: 1-2 risk factors - Troponin Troponin: </= normal limit - Score Heart Score - Total: 5 #1 ECG reviewed & interpreted by me at: 00:39 08/22/18 00:39 HR 63 MI 108 QRS 70 QTc 384 Normal Sinus Rhythm Non Specific T wave findings No Acute ST Changes ED Treatment Course - LABORATORY CBC & Chemistry Diagram: 08/22/18 00:40 08/22/18 00:40 Medical Decision Making - Medical Decision Making 08/21/18 23:15 The patient is a 77 year old female with a history of HTN, HLD, TIA, Anemia, Hypothyroidism, GERD who presents for evaluation of chest pain. Differential includes but is not limited to: ACS, Arrythmia, Pneumonia, Musculoskeletal, Infectious, Metabolic Derangement. Given the patient's history and physical exam, we will obtain a cbc, cmp, troponin, ekg, chest plain film to evaluate further. We will continue to monitor and reassess while here in the ED. 08/22/18 04:36 CBC, cmp, troponin are unremarkable. Chest plain film is unremarkable. Given the patient's cardiac risk factors, she will require observation admission for further monitoring. We discussed the case with the admitting team who accepted the patient for admission. *DC/Admit/Observation/Transfer Diagnosis at time of Disposition: Chest pain Qualifiers: Chest pain type: unspecified Qualified Code(s): R07.9 - Chest pain, unspecified - Discharge Dispostion Condition at time of disposition: Stable Decision to Admit order: Yes - Referrals - Patient Instructions - Post Discharge Activity
[2018-08-21 23:43] VITALS: BMI 30.7
[2018-08-22 01:02] LABS: BASO % 0.9 % (0-2.0); EOS % 5.2 % (0-4.5); HEMATOCRIT 31.5 % (32.4-45.2); HEMOGLOBIN 10.4 GM/dL (10.7-15.3); LYMPH % 20.1 % (8-40); MCH 30.4 pg (25.7-33.7); MEAN CELL VOLUME 91.9 fl (80-96); MEAN PLT VOLUME 9.2 fl (7.5-11.1); NEUT % 62.8 % (42.8-82.8); RBC 3.42 M/mm3 (3.60-5.2); WHITE BLOOD COUNT 5.2 K/mm3 (4.0-10.0)
[2018-08-22 01:32] LABS: ALBUMIN 3.8 g/dl (3.4-5.0); ALK PHOS 95 U/L (45-117); ANION GAP 3 MMOL/L (8-16); BILIRUBIN,TOTAL 0.7 mg/dL (0.2-1); BLOOD UREA NITROGEN 18.5 mg/dL (7-18); CALCIUM 9.6 mg/dL (8.5-10.1); CHLORIDE 112 mmol/L (98-107); CO2 28 mmol/L (21-32); CREATININE 1.1 mg/dL (0.55-1.3); GLUCOSE,RANDOM 107 mg/dL (74-106); N-TERMINAL BNP 405.9 pg/ml (5-450); POTASSIUM 4.3 mmol/L (3.5-5.1); SGOT/AST 18 U/L (15-37); SGPT/ALT 22 U/L (13-61); SODIUM 143 mmol/L (136-145); TOT PROT 6.5 g/dl (6.4-8.2)
--- NOTE | 2018-08-22 01:48 | PDOC ---
Documentation entered by Shereen Gonzales SCRIBE, acting as scribe for Ping London MD. Ping London MD: This documentation has been prepared by the Janet rodriguez Adrianna, SCRIBE, under my direction and personally reviewed by me in its entirety. I confirm that the documentation accurately reflects all work, treatment, procedures, and medical decision making performed by me. Attending Attestation - Resident Resident Name: IlanaRoberto - ED Attending Attestation I have performed the following: I have examined & evaluated the patient, The case was reviewed & discussed with the resident, I agree w/resident's findings & plan, Exceptions are as noted - HPI HPI: The patient is a 77 year old female, with a significant PMH of HTN, HLD, TIA, Anemia, Hypothyroidism, and GERD, who presents to the ED today complaining of chest pain for a few hours. The patient notes she began experiencing left-sided chest pain, which radiates down the LUE. She reports taking 2 sub-lingual nitros prior to arrival, without any relief of symptoms. Patient endorses associated shortness of breath and lightheadedness. Denies fever, chills, nausea, vomit, diarrhea and constipation. Denies dysuria, frequency, urgency and hematuria. Allergies: Ezetimibe, hydrochlorothiazide, sulfa, benzocaine, fragrances Past surgical history: Appendectomy, left shoulder arthroscopy Social history: No reported PCP: Dr. Eugene Payne 08/21/18 23:46 - Physicial Exam PE: 08/22/18 01:54 wnwd 77 yo female dev chest heaviness and pressure radiating to her left arm head ncat neck supple.no jvd,no bruits lungs cta b/l cvs [id number] abdomen nontender extremities no edema skin warm and dry no flank pain neuro axox3,ambulatory psych appropriate - Medical Decision Making 08/22/18 01:58 77-year-old female came with family this evening after developing chest pressure and pain that radiated down her left arm. She said initially was quite intense, but did respond to her nitroglycerin that she took at home. She states she does have a history of coronary artery disease and last year had a cardiac catheterization at [facility] that showed a 30% occlusion, but at that time.no stents were placed. Hand Fretted Instrument Maker is Dr. Green pt currently comfortable plan admission to telemetry
[2018-08-22 02:20] LABS: PLATELET COUNT 182 K/MM3 (134-434)
--- NOTE | 2018-08-22 02:27 | PN ---
Teaching Attending Note Name of Resident: Carlos Nichols ATTENDING PHYSICIAN STATEMENT I saw and evaluated the patient. I reviewed the resident's note and discussed the case with the resident. I agree with the resident's findings and plan as documented. SUBJECTIVE: Patient is a 77 year old woman with a history of HTN, HLD, TIA, Anemia, Hypothyroidism, left ear deafness, GERD and vertigo who presents for evaluation of chest pain. The patient reports onset of left sided chest pain that she describes as a heaviness earlier this evening with radiation to her left arm. She states that she took 2 sublingual nitro without improvement in her symptoms and her symptoms have remained persistent prompting her presentation to the ER for further evaluation. She notes some associated shortness of breath as well as lightheadedness. She otherwise denies fevers, chills, nausea, vomiting, abdominal pain, or changes with urination or bowel movements. OBJECTIVE: Alert and not orthostatic Vital Signs Period Temp Pulse Resp BP Sys/Enamorado Pulse Ox Last 24 Hr 96.9 F 62 18 148/63 99 HEENT: No Jaundice, eye redness or discharge, PERRLA, EOMI. Normocephalic, atraumatic. External ears are normal and hearing is impaired. No nasal discharge. Neck: Supple, nontender. No palpable adenopathy or thyromegaly. No JVD Chest: Good effort. Clear to auscultation and percussion. Heart: Regular. No S3 or rub; 2/6 IZABELLA Abdomen: Not distended, soft, nontender and no HSM. No rebound or guarding. Normal bowel sounds. Ext: Peripheral pulses intact. No leg edema. Skin: Warm and dry. No petechiae, rash or ecchymosis. Neuro: Alert. Oriented x3. CN 2-12 grossly intact. Sensation grossly intact in all four extremities and DTR are symmetric. Psych: Appropriate mood and affect. Good insight. Home Medications Medication Instructions Recorded Levothyroxine [Synthroid -] 75 mcg PO DAILY 04/09/18 Losartan Potassium 100 mg PO DAILY 04/09/18 Metoprolol Tartrate 100 mg PO DAILY 04/09/18 Nifedipine ER [Procardia XL -] 30 mg PO DAILY 04/09/18 Rosuvastatin Calcium [Crestor] 10 mg PO DAILY 04/09/18 Aspirin 81 mg PO DAILY 07/20/18 Lifitegrast [Xiidra] 1 each OP BID 07/20/18 Meclizine HCl 12.5 mg PO TID 07/20/18 Mag Carb/Aluminum Hydrox/Algin 15 - 30 ml PO Q4H PRN 30 Days #355 07/21/18 [Gaviscon Liquid] oz Pantoprazole Sodium 40 mg PO DAILY #30 tablet. 07/21/18 Abnormal Lab Results 08/22/18 08/22/18 00:40 00:40 RBC 3.42 L Hgb 10.4 L Hct 31.5 L Monocytes % 11.0 H Eosinophils % 5.2 H Chloride 112 H Anion Gap 3 L BUN 18.5 H Random Glucose 107 H Creatine Kinase 199 H ASSESSMENT AND PLAN: 1. Chest pain - Patient has risk factors for CAD. EKG shows NSR with short CO interval but no significant ST-T wave changes. Initial troponin was negative. No acute abnormality on CXR. Will admit to telemetry to rule out ACS, get ECHO, fasting lipids and consult Cardiology. Associated dizziness may be related to chronic vertigo. Will monitor closely and implement fall precautions. ECHO from 04/10/18 showed normal LV function and mild valvular heart disease. Cardiac catheterization done at [facility] [place] on 05-26-17 showed - left main patent, distal LAD 30 %, LCx luminal irregularities, proximal RCA 30%- anterior take off. 2. Anemia - Cause unclear. Will do basic anemia work up including serial stool guaiacs, reticulocyte count and iron studies. Also do SPEP and UPEP in view of low anion gap. 3. Obesity Counseled on the risks associated with obesity. Will provide patient all the necessary assistance, counseling and positive reinforcement to facilitate weight loss. Consult manager plan. 4. Hypertension - Restart suitable outpatient antihypertensive drugs when clinically appropriate. Revise regimen to ensure good BP control. Nonpharmacologic measures to control hypertension like weight loss, salt restriction and exercise discussed. 5. DVT prophylaxis - Lovenox 40 mg SQ q 24 hours. 6. Advance directives - Full code
--- NOTE | 2018-08-22 04:14 | HP ---
CHIEF COMPLAINT: Chest pain PCP: Dr. Pyane HISTORY OF PRESENT ILLNESS: Pt. is a 77 y.o. F w/ PMHx. of TIA, HTN, Hypothyroidism, Vertigo, HLD, and Angina presents with chest pain that started last night at 9pm. Pt. states that she took 2 tabs of nitroglycerin 5 minutes apart without any relief of her symptoms. Pt. states that the chest pain radiated to her left arm. Pt. currently denies chest pain but states she has a chest heaviness. Pt. states that last year she had a pain like this and was worked up with a cardiac catherization by Dr. Kwok. Pt. endorses chronic dizziness and "ear problems" that she is being worked up outpatient by ENT for the etiology. Pt. states she falls to the right side when she feels dizzy. Pt. denies any recent changes in vision, shortness of breath, dysuria, hematuria, constipation, diarrhea or numbness/tingling. ER course was notable for: (1)EKG, CXR, labs, Trop (2)Cardiology Consult (3) Recent Travel: No PAST MEDICAL HISTORY: As Above, Left ear Deafness PAST SURGICAL HISTORY: R. Shoulder surgery, Appendectomy, left cataract surgery Social History: Smoking: Denies Alcohol: Denies Drugs: Denies Family History: Mother- Muscular Dystrophy, Younger Brother has "heart problem" Allergies ezetimibe [From Zetia] Allergy (Intermediate, Verified 08/21/18 23:43) Rash hydrochlorothiazide Allergy (Intermediate, Verified 08/21/18 23:43) Rash Sulfa (Sulfonamide Antibiotics) Allergy (Intermediate, Verified 08/21/18 23:43) Rash benzocaine Allergy (Unknown, Verified 08/21/18 23:43) UNKNOWN FRAGRANCES Allergy (Intermediate, Uncoded 08/21/18 23:43) Cough HOME MEDICATIONS: Home Medications Medication Instructions Recorded Levothyroxine [Synthroid -] 75 mcg PO DAILY 04/09/18 Losartan Potassium 100 mg PO DAILY 04/09/18 Metoprolol Tartrate 100 mg PO DAILY 04/09/18 Nifedipine ER [Procardia XL -] 30 mg PO DAILY 04/09/18 Rosuvastatin Calcium [Crestor] 10 mg PO DAILY 04/09/18 Aspirin 81 mg PO DAILY 07/20/18 Lifitegrast [Xiidra] 1 each OP BID 05/09/19 Meclizine HCl 12.5 mg PO TID 07/20/18 Mag Carb/Aluminum Hydrox/Algin 15 - 30 ml PO Q4H PRN 30 Days #355 07/21/18 [Gaviscon Liquid] oz Pantoprazole Sodium 40 mg PO DAILY #30 tablet. 07/21/18 REVIEW OF SYSTEMS As above PHYSICAL EXAMINATION Vital Signs - 24 hr 08/21/18 23:37 Temperature 96.9 F L Pulse Rate 62 Respiratory 18 Rate Blood Pressure 148/63 O2 Sat by Pulse 99 Oximetry (%) GENERAL: Awake, alert, and fully oriented, in no acute distress. HEAD: Normal with no signs of trauma. EYES: Extraocular movements intact, sclera anicteric, conjunctiva clear. EARS, NOSE, THROAT: Ears normal, nares patent, oropharynx clear without exudates. Moist mucous membranes. NECK: Normal range of motion, supple without lymphadenopathy, JVD, or masses. LUNGS: Breath sounds equal, clear to auscultation bilaterally. No wheezes, and no crackles. No accessory muscle use. HEART: Regular rate and rhythm, normal S1 and S2 with diastolic murmur ABDOMEN: Soft, nontender, not distended, normoactive bowel sounds, no guarding, no rebound, no masses. MUSCULOSKELETAL: Normal range of motion at all joints. No bony deformities or tenderness. No CVA tenderness. UPPER EXTREMITIES: 2+ radial pulses, warm, well-perfused. No cyanosis. No clubbing. No peripheral edema. LOWER EXTREMITIES: 2+ dorsal pedal pulses, warm, well-perfused. No calf tenderness. No peripheral edema. NEUROLOGICAL: Normal speech. Gait not assesed PSYCHIATRIC: Cooperative. Good eye contact. Appropriate mood and affect. SKIN: Warm, dry, normal turgor, no rashes or lesions noted Laboratory Results - last 24 hr 08/22/18 08/22/18 00:40 00:40 WBC 5.2 RBC 3.42 L Hgb 10.4 L Hct 31.5 L MCV 91.9 MCH 30.4 MCHC 33.0 RDW 14.0 Plt Count 182 MPV 9.2 Absolute Neuts (auto) 3.3 Neutrophils % 62.8 D Lymphocytes % 20.1 D Monocytes % 11.0 H Eosinophils % 5.2 H Basophils % 0.9 Nucleated RBC % 0 Sodium 143 Potassium 4.3 Chloride 112 H Carbon Dioxide 28 Anion Gap 3 L BUN 18.5 H Creatinine 1.1 Est GFR (CKD-EPI)AfAm 55.30 Est GFR (CKD-EPI)NonAf 47.71 Random Glucose 107 H Calcium 9.6 Total Bilirubin 0.7 AST 18 ALT 22 Alkaline Phosphatase 95 Creatine Kinase 199 H Creatine Kinase Index 1.3 CK-MB (CK-2) 2.7 Troponin I < 0.02 B-Natriuretic Peptide 405.9 Total Protein 6.5 Albumin 3.8 ASSESSMENT/PLAN: Pt. is a 77 y.o. F w/ PMHx. of TIA, HTN, Hypothyroidism, Vertigo, HLD, and Angina presents with chest pain that started last night at 9pm. #Chest Pain r/o ACS Trop Neg x 2 EKG unchanged from prior, f/u Rpt. EKG f/u Echo f/u orthostatic hypotension #Anemia Hgb: 10.4 f/u Iron studies f/u SPEP and UPEP (3% of Pt.'s do not have serum spike in protein)--> suspicious for Multiple Myeloma with decreased Anion Gap f/u for stool occult blood f/u reticulocyte count #FEN no IVF, encourage PO intake monitor electrolytes, and replete and as needed NPO for possible stress test, advance diet if Pt. is not having stress test today #DVT Ppx. Lovenox 40mg SQ Visit type - Emergency Visit Emergency Visit: Yes ED Registration Date: 08/22/18 Care time: The patient presented to the Emergency Department on the above date and was hospitalized for further evaluation of their emergent condition. - New Patient This patient is new to me today: Yes Date on this admission: 08/22/18 - Critical Care Critical Care patient: No
[2018-08-22 06:49] LABS: HEMATOCRIT 30.7 % (32.4-45.2); HEMOGLOBIN 10.2 GM/dL (10.7-15.3); MCH 30.3 pg (25.7-33.7); MCHC 33.4 g/dl (32.0-36.0); MEAN CELL VOLUME 90.7 fl (80-96); RBC 3.38 M/mm3 (3.60-5.2); RDW 13.9 % (11.6-15.6); WHITE BLOOD COUNT 4.4 K/mm3 (4.0-10.0)
[2018-08-22 07:09] LABS: PLATELET COUNT 178 K/MM3 (134-434)
[2018-08-22 07:14] LABS: BLOOD UREA NITROGEN 16.2 mg/dL (7-18); CALCIUM 9.2 mg/dL (8.5-10.1); MAGNESIUM 2.5 mg/dL (1.8-2.4); PHOSPHOROUS 3.4 mg/dL (2.5-4.9); POTASSIUM 3.9 mmol/L (3.5-5.1)
--- NOTE | 2018-08-22 09:07 | PN ---
Physical Exam: SUBJECTIVE: Patient seen and examined OBJECTIVE: Vital Signs Period Temp Pulse Resp BP Sys/Enamorado Pulse Ox Last 24 Hr 96.9 F 62-64 18-18 142-148/63-72 99 GENERAL: The patient is awake, alert, and fully oriented, in no acute distress. HEAD: Normal with no signs of trauma. EYES: PERRL, extraocular movements intact, sclera anicteric, conjunctiva clear. No ptosis. ENT: Ears normal, nares patent, oropharynx clear without exudates, moist mucous membranes. NECK: Trachea midline, full range of motion, supple. LUNGS: Breath sounds equal, clear to auscultation bilaterally, no wheezes, no crackles, no accessory muscle use. HEART: Regular rate and rhythm, S1, S2 without murmur, rub or gallop. ABDOMEN: Soft, nontender, nondistended, normoactive bowel sounds, no guarding, no rebound, no hepatosplenomegaly, no masses. EXTREMITIES: 2+ pulses, warm, well-perfused, no edema. NEUROLOGICAL: Cranial nerves II through XII grossly intact. Normal speech, gait not observed. PSYCH: Normal mood, normal affect. SKIN: Warm, dry, normal turgor, no rashes or lesions noted Laboratory Results - last 24 hr 08/22/18 08/22/18 08/22/18 00:40 00:40 06:10 WBC 5.2 RBC 3.42 L Hgb 10.4 L Hct 31.5 L MCV 91.9 MCH 30.4 MCHC 33.0 RDW 14.0 Plt Count 182 MPV 9.2 Absolute Neuts (auto) 3.3 Neutrophils % 62.8 D Lymphocytes % 20.1 D Monocytes % 11.0 H Eosinophils % 5.2 H Basophils % 0.9 Nucleated RBC % 0 Sodium 143 144 Potassium 4.3 3.9 Chloride 112 H 112 H Carbon Dioxide 28 27 Anion Gap 3 L 5 L BUN 18.5 H 16.2 Creatinine 1.1 1.0 Est GFR (CKD-EPI)AfAm 55.30 62.05 Est GFR (CKD-EPI)NonAf 47.71 53.54 Random Glucose 107 H 93 Calcium 9.6 9.2 Phosphorus 3.4 Magnesium 2.5 H Ferritin Total Bilirubin 0.7 AST 18 ALT 22 Alkaline Phosphatase 95 Creatine Kinase 199 H Creatine Kinase Index 1.3 CK-MB (CK-2) 2.7 Troponin I < 0.02 B-Natriuretic Peptide 405.9 Total Protein 6.5 Albumin 3.8 Triglycerides 51 Cholesterol 155 Total LDL Cholesterol 69 HDL Cholesterol 81 H 08/22/18 08/22/18 06:10 06:10 WBC 4.4 RBC 3.38 L Hgb 10.2 L Hct 30.7 L MCV 90.7 MCH 30.3 MCHC 33.4 RDW 13.9 Plt Count 178 MPV 9.0 Absolute Neuts (auto) Neutrophils % Lymphocytes % Monocytes % Eosinophils % Basophils % Nucleated RBC % Sodium Potassium Chloride Carbon Dioxide Anion Gap BUN Creatinine Est GFR (CKD-EPI)AfAm Est GFR (CKD-EPI)NonAf Random Glucose Calcium Phosphorus Magnesium Ferritin 22.6 Total Bilirubin AST ALT Alkaline Phosphatase Creatine Kinase Creatine Kinase Index CK-MB (CK-2) Troponin I B-Natriuretic Peptide Total Protein Albumin Triglycerides Cholesterol Total LDL Cholesterol HDL Cholesterol Active Medications Generic Name Dose Route Start Last Admin Trade Name Freq PRN Reason Stop Dose Admin Enoxaparin Sodium 40 mg 08/22/18 10:00 Lovenox - SQ DAILY [facility] ASSESSMENT/PLAN:
[2018-08-22] MEDS ORDERED: MECLIZINE HCL 12.5 MG TABLET PO PRN (09:41)
--- NOTE | 2018-08-22 09:46 | CON.CARD ---
Consult Consult Specialty:: cardiology Reason for Consultation:: chest pain; hx coronary angiogram - History of Present Illness Chief Complaint: Pt A&Ox3; no chest pain presently unless left sternal area is palpated; she has mild pain there, but says it is different than the pain (more pressure-like) that brought her to the ER. History of Present Illness: The patient is a 77 year old female (b. Jordana), with a significant PMH of nonobstructive CAD on coronary angiogram 2018, HTN, HLD, TIA, arthritis "all over" , with weakness , gait disorder, Anemia, Hypothyroidism, weight loss ( about 20 lbs in past 2 years; pt's appetite has decreased, and she believes it is due to emotional stress brom her 's illness), anxeity,and GERD, who presents to the ED today complaining of chest pain for a few hours. The patient notes she began experiencing left-sided chest pain at rest at about 9 pm, which radiates down the LUE. She reports taking 2 sub-lingual nitros prior to arrival , without any relief of symptoms. Patient endorses associated shortness of breath and lightheadedness. Pt's daughter, Michelle, is at bedside. Denies fever, chills, nausea, vomit, diarrhea and constipation. Denies dysuria, frequency, urgency and hematuria. 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 - History Source History Provided By: Patient, Family Member, Medical Record Limitations to Obtaining History: No Limitations - Past Medical History Cardio/Vascular: Yes: CAD, HTN, Hyperlipdemia, Other (MVP) Pulmonary: No: Asthma Reproductive: Yes: Postmenopausal ...: No Heme/Onc: Yes: Anemia Musculoskeletal: Yes: Osteoarthritis Endocrine: Yes: Hypothyroidism - Past Surgical History Past Surgical History: Yes: Appendectomy Additional Surgical History: coronary angiogram 2018: mild, nonobstructive CAD - Alcohol/Substance Use Hx Alcohol Use: No History of Substance Use: reports: None - Smoking History Smoking history: Never smoked Have you smoked in the past 12 months: No Aproximately how many cigarettes per day: 0 - Social History Usual Living Arrangement: With Spouse ADL: Independent History of Recent Travel: No Home Medications - Allergies Allergies/Adverse Reactions: Allergies Allergy/AdvReac Type Severity Reaction Status Date / Time ezetimibe [From Zetia] Allergy Intermediate Rash Verified 08/21/18 23:43 hydrochlorothiazide Allergy Intermediate Rash Verified 08/21/18 23:43 Sulfa (Sulfonamide Allergy Intermediate Rash Verified 08/21/18 23:43 Antibiotics) benzocaine Allergy Unknown UNKNOWN Verified 08/21/18 23:43 FRAGRANCES Allergy Intermediate Cough Uncoded 08/21/18 23:43 - Home Medications Home Medications: Ambulatory Orders Levothyroxine [Synthroid -] 75 mcg PO DAILY 04/09/18 Losartan Potassium 100 mg PO HS 04/09/18 Metoprolol Tartrate 100 mg PO DAILY 04/09/18 Nifedipine ER [Procardia XL -] 60 mg PO DAILY 04/09/18 Rosuvastatin Calcium [Crestor] 10 mg PO HS 04/09/18 Aspirin 81 mg PO DAILY 07/20/18 Lifitegrast [Xiidra] 1 each OP BID 07/20/18 Meclizine HCl 12.5 mg PO TID PRN 07/20/18 Pantoprazole Sodium 40 mg PO DAILY #30 tablet. 07/21/18 Family Disease History - Family Disease History Family Disease History: Other: Mother (muscular dystrophy) Review of Systems - Review of Systems Constitutional: reports: Unintentional Wgt. Loss, Weakness Eyes: reports: No Symptoms HENT: reports: No Symptoms Neck: reports: No Symptoms Cardiovascular: reports: Chest Pain Respiratory: reports: No Symptoms Gastrointestinal: reports: No Symptoms Genitourinary: reports: No Symptoms Breasts: reports: No Symptoms Reported Musculoskeletal: reports: Muscle Weakness Neurological: reports: Unsteady Gait, Weakness Endocrine: reports: No Symptoms Hematology/Lymphatic: reports: No Symptoms Psychiatric: reports: Anxiety - Risk Factors Known Risk Factors: Yes: Age, Hypercholesterolemia, Hypertension Vital Signs: Vital Signs Temperature 96.9 F L 08/21/18 23:37 Pulse Rate 64 08/22/18 07:37 Respiratory Rate 18 08/22/18 07:37 Blood Pressure 142/72 08/22/18 07:37 O2 Sat by Pulse Oximetry (%) 99 08/21/18 23:37 Constitutional: Yes: Anxious Eyes: Yes: WNL HENT: Yes: WNL Neck: Yes: WNL Respiratory: Yes: WNL Gastrointestinal: Yes: WNL Renal/: Yes: WNL Cardiovascular: Yes: WNL JVD: No Carotid Bruit: No PMI: Non-Displaced Heart Sounds: Yes: S1, S2, S4 Musculoskeletal: Yes: Joint Stiffness Extremities: Yes: WNL Edema: No Peripheral Pulses WNL: Yes Integumentary: Yes: WNL Neurological: Yes: WNL ...Motor Strength: WNL Psychiatric: Yes: Alert, Oriented, Other (anxiety) - Other Data Labs, Other Data: CBC, BMP 08/22/18 06:10 08/22/18 06:10 Troponin, BNP 08/22/18 00:40 Troponin I < 0.02 B-Natriuretic Peptide 405.9 Troponin, BNP 08/22/18 00:40 Troponin I < 0.02 B-Natriuretic Peptide 405.9 Abnormal Lab Results 08/22/18 08/22/18 08/22/18 00:40 00:40 06:10 RBC 3.42 L Hgb 10.4 L Hct 31.5 L Monocytes % 11.0 H Eosinophils % 5.2 H Chloride 112 H 112 H Anion Gap 3 L 5 L BUN 18.5 H Random Glucose 107 H Magnesium 2.5 H Creatine Kinase 199 H HDL Cholesterol 81 H 08/22/18 06:10 RBC 3.38 L Hgb 10.2 L Hct 30.7 L Monocytes % Eosinophils % Chloride Anion Gap BUN Random Glucose Magnesium Creatine Kinase HDL Cholesterol Ejection Fraction %: LVEF > or = 40 % Imaging - Results EKG: Image Reviewed (NSR;) Other: Image Reviewed (telemetry: NSR; no arrythmias) Problem List - Problems (1) Atypical chest pain Assessment/Plan: Pt had left sternal pressure-like and sharp chest pain at rest last night; 2 sl NTGs did not help. She does not get the pain when she exercises. EKG: no acute ST-T changes. Telemetry: no arrhythmias. Coronary angiogram 2018: mild, nonobstructive CAD. TNI <0.02; if 2nd set is negative this morning, pt may be discharged and followed up by Dr. Kwok as outpatient for possible stress test. This was discussed with him today. Code(s): R07.89 - OTHER CHEST PAIN (2) Anxiety Code(s): F41.9 - ANXIETY DISORDER, UNSPECIFIED (3) Anemia Code(s): D64.9 - ANEMIA, UNSPECIFIED (4) HTN (hypertension) Code(s): I10 - ESSENTIAL (PRIMARY) HYPERTENSION Qualifiers: Hypertension type: essential hypertension Qualified Code(s): I10 - Essential (primary) hypertension (5) Hyperlipidemia Code(s): E78.5 - HYPERLIPIDEMIA, UNSPECIFIED (6) MVP (mitral valve prolapse) Assessment/Plan: F?u as outpatient with cardiology; ECHO may be done as outpatient. Code(s): I34.1 - NONRHEUMATIC MITRAL (VALVE) PROLAPSE (7) Arthritis Assessment/Plan: F/u [facility]; pt feels joint pain and decreased ROM is responsible for her inability to walk long distances (her daughter says her mother is very active around the house, but is afraid to walk much outdoors because she has fallen in the past from balance issues; denies syncope). Code(s): M19.90 - UNSPECIFIED OSTEOARTHRITIS, UNSPECIFIED SITE (8) Vertigo Assessment/Plan: On Antivert. F?u orthostatic VS. Encourage PO intake. Code(s): R42 - DIZZINESS AND GIDDINESS (9) Unintentional weight loss Assessment/Plan: Pt is worried she has lost nearly 20 lbs in the past 2 years. She has had decrease in appetite since caring for 's illness during this time. Her daughter says her mother eats very little; she will help see that she follows a more balanced diet. Code(s): R63.4 - ABNORMAL WEIGHT LOSS
[2018-08-22] MEDS ORDERED: ENOXAPARIN NA (PORCINE) 40 MG/0.4 ML DISP.SYRIN SQ SCH (10:00)
[2018-08-22] MEDS ORDERED: REGADENOSON 0.4 MG/5 ML PRE-FILLED SYRINGE IVPUSH ONE (10:00)
[2018-08-22] MEDS ORDERED: PANTOPRAZOLE 40 MG TABLET (FP) PO SCH (10:00)
[2018-08-22] MEDS ORDERED: PATIENT'S OWN MEDICATION (NON-FORMULARY) (Metoprolol Tartrate [Metoprolol Tartrate] 100 MG PO SCH (10:00)
[2018-08-22] MEDS ORDERED: NIFEdipine E.R 60 MG TABLET (UD) PO SCH (10:00)
[2018-08-22] MEDS ORDERED: LEVOTHYROXINE NA 75 MCG TABLET (FP) PO SCH (10:00)
[2018-08-22] MEDS ORDERED: ASPIRIN 81 MG CHEWABLE TABLETS PO SCH (10:00)
[2018-08-22] MEDS ORDERED: ASPIRIN 81 MG CHEWABLE TABLETS ONE (11:31)
[2018-08-22] MEDS ORDERED: NIFEdipine E.R. 30 MG TABLET (FP) ONE (11:31)
[2018-08-22] MEDS ORDERED: PANTOPRAZOLE 40 MG TABLET (FP) ONE (11:31)
[2018-08-22] MEDS ORDERED: LEVOTHYROXINE NA 25 MCG TABLET (FP) ONE (11:31)
[2018-08-22 12:13] VITALS: BP 136/73; PULSE 74; TEMP 97.8
--- NOTE | 2018-08-22 12:14 | DS ---
Physical Exam: SUBJECTIVE: Patient seen and examined resting in bed nad, afebrile hemodynamically stable. no acute events.. denies cp , sob, cough, palpitations, orthopnea. OBJECTIVE: Vital Signs Period Temp Pulse Resp BP Sys/Enamorado Pulse Ox Last 24 Hr 96.9 F-97.8 F 62-74 15-18 136-148/63-73 99 PHYSICAL EXAM GENERAL: The patient is awake, alert, and fully oriented, in no acute distress. HEAD: Normal with no signs of trauma. EYES: PERRL, extraocular movements intact, sclera anicteric, conjunctiva clear. ENT: moist mucous membranes. NECK: supple. LUNGS: Breath sounds equal, clear to auscultation bilaterally HEART: Regular rate and rhythm, S1, S2 ABDOMEN: Soft, nontender, nondistended, normoactive bowel sounds EXTREMITIES: 2+ pulses, warm, well-perfused, no edema. NEUROLOGICAL: Cranial nerves II through XII grossly intact. Normal speech, gait not observed. PSYCH: Normal mood, normal affect. SKIN: Warm, dry LABS Laboratory Results - last 24 hr 08/22/18 08/22/18 08/22/18 00:40 00:40 06:10 WBC 5.2 RBC 3.42 L Hgb 10.4 L Hct 31.5 L MCV 91.9 MCH 30.4 MCHC 33.0 RDW 14.0 Plt Count 182 MPV 9.2 Absolute Neuts (auto) 3.3 Neutrophils % 62.8 D Lymphocytes % 20.1 D Monocytes % 11.0 H Eosinophils % 5.2 H Basophils % 0.9 Nucleated RBC % 0 Sodium 143 144 Potassium 4.3 3.9 Chloride 112 H 112 H Carbon Dioxide 28 27 Anion Gap 3 L 5 L BUN 18.5 H 16.2 Creatinine 1.1 1.0 Est GFR (CKD-EPI)AfAm 55.30 62.05 Est GFR (CKD-EPI)NonAf 47.71 53.54 Random Glucose 107 H 93 Calcium 9.6 9.2 Phosphorus 3.4 Magnesium 2.5 H Ferritin Total Bilirubin 0.7 AST 18 ALT 22 Alkaline Phosphatase 95 Creatine Kinase 199 H Creatine Kinase Index 1.3 CK-MB (CK-2) 2.7 Troponin I < 0.02 B-Natriuretic Peptide 405.9 Total Protein 6.5 Albumin 3.8 Triglycerides 51 Cholesterol 155 Total LDL Cholesterol 69 HDL Cholesterol 81 H 08/22/18 08/22/18 08/22/18 06:10 06:10 09:50 WBC 4.4 RBC 3.38 L Hgb 10.2 L Hct 30.7 L MCV 90.7 MCH 30.3 MCHC 33.4 RDW 13.9 Plt Count 178 MPV 9.0 Absolute Neuts (auto) Neutrophils % Lymphocytes % Monocytes % Eosinophils % Basophils % Nucleated RBC % Sodium Potassium Chloride Carbon Dioxide Anion Gap BUN Creatinine Est GFR (CKD-EPI)AfAm Est GFR (CKD-EPI)NonAf Random Glucose Calcium Phosphorus Magnesium Ferritin 22.6 Total Bilirubin AST ALT Alkaline Phosphatase Creatine Kinase Creatine Kinase Index CK-MB (CK-2) Troponin I < 0.02 B-Natriuretic Peptide Total Protein Albumin Triglycerides Cholesterol Total LDL Cholesterol HDL Cholesterol 08/22/18 11:08 WBC RBC Hgb Hct MCV MCH MCHC RDW Plt Count MPV Absolute Neuts (auto) Neutrophils % Lymphocytes % Monocytes % Eosinophils % Basophils % Nucleated RBC % Sodium Potassium Chloride Carbon Dioxide Anion Gap BUN Creatinine Est GFR (CKD-EPI)AfAm Est GFR (CKD-EPI)NonAf Random Glucose Calcium Phosphorus Magnesium Ferritin Total Bilirubin AST ALT Alkaline Phosphatase Creatine Kinase 175 Creatine Kinase Index CK-MB (CK-2) Troponin I < 0.02 B-Natriuretic Peptide Total Protein Albumin Triglycerides Cholesterol Total LDL Cholesterol HDL Cholesterol HOSPITAL COURSE: Date of Admission:08/22/18 This is a 77 yo F with PMH of TIA, HTN, Hypothyroidism, Vertigo, HLD, and Angina presents with chest pain radiating to lue that started last night at 9pm , unrelieved by 2 tabs of nitroglycerin. Had a cardiac catherization by Dr. Kwok for similar cp last year that revealed 30% occlusion, no stents ever done. had a normal stress test 2 yrs ago. Cp resolved spontaneously in ED. patient had 2 negative trops. she was evaluated by cardiology and cleared for dc with plan to do outpatient stress test. Date of Discharge: 08/22/18 Minutes to complete discharge: 35 Discharge Summary Reason For Visit: CHEST PAIN Current Active Problems Anemia (Acute) Anxiety (Acute) Arthritis (Acute) Atypical chest pain (Acute) Chest pain (Acute) MVP (mitral valve prolapse) (Acute) Unintentional weight loss (Acute) Condition: Stable - Instructions Diet, Activity, Other Instructions: You resented with chest pain that resolved in the hospital. based on your EKG and labs, we do not believe you were having a heart attack. You were seen by cardiology and cleared to go home. Please follow up with cardiology this week to schedule a stress test Continue all home medication as usual Please return to the hospital if severe symptoms recur Referrals: Jorge Luis Kwok MD [Staff Physician] - Disposition: HOME - Home Medications Comprehensive Discharge Medication List: Ambulatory Orders Levothyroxine [Synthroid -] 75 mcg PO DAILY 04/09/18 Losartan Potassium 100 mg PO HS 04/09/18 Metoprolol Tartrate 100 mg PO DAILY 04/09/18 Nifedipine ER [Procardia XL -] 60 mg PO DAILY 04/09/18 Rosuvastatin Calcium [Crestor] 10 mg PO HS 04/09/18 Aspirin 81 mg PO DAILY 07/20/18 Lifitegrast [Xiidra] 1 each OP BID 07/20/18 Meclizine HCl 12.5 mg PO TID PRN 07/20/18 Pantoprazole Sodium 40 mg PO DAILY #30 tablet. 07/21/18 Problem List - Problems (1) Anemia Code(s): D64.9 - ANEMIA, UNSPECIFIED (2) Chest pain Code(s): R07.9 - CHEST PAIN, UNSPECIFIED Qualifiers: Chest pain type: unspecified Qualified Code(s): R07.9 - Chest pain, unspecified (3) Angina at rest Code(s): I20.8 - OTHER FORMS OF ANGINA PECTORIS (4) HTN (hypertension) Code(s): I10 - ESSENTIAL (PRIMARY) HYPERTENSION Qualifiers: Hypertension type: essential hypertension Qualified Code(s): I10 - Essential (primary) hypertension (5) Hyperlipidemia Code(s): E78.5 - HYPERLIPIDEMIA, UNSPECIFIED (6) Hypothyroidism Code(s): E03.9 - HYPOTHYROIDISM, UNSPECIFIED (7) Shoulder pain, acute Code(s): M25.519 - PAIN IN UNSPECIFIED SHOULDER Qualifiers: Laterality: right Qualified Code(s): M25.511 - Pain in right shoulder (8) Vertigo Code(s): R42 - DIZZINESS AND GIDDINESS This patient is new to me today: Yes Date on this admission: 08/22/18 Emergency Visit: Yes ED Registration Date: 06/11/19 Care time: The patient presented to the Emergency Department on the above date and was hospitalized for further evaluation of their emergent condition. Critical Care patient: No - Discharge Referral Referred to [facility] No
--- NOTE | 2018-08-22 12:42 | EKG ---
Test Reason : Blood Pressure : / mmHG Vent. Rate : 061 BPM Atrial Rate : 061 BPM P-R Int : 106 ms QRS Dur : 074 ms QT Int : 386 ms P-R-T Axes : 011 055 043 degrees QTc Int : 388 ms SINUS RHYTHM WITH SHORT [place] OTHERWISE NORMAL ECG Confirmed by Kamaljit Guzman MD ([id number]) on 08/22/2018 12:41:55 PM Referred By: Confirmed By:Kamaljit Guzman MD
--- NOTE | 2018-08-22 12:42 | EKG ---
Test Reason : Blood Pressure : / mmHG Vent. Rate : 063 BPM Atrial Rate : 063 BPM P-R Int : 108 ms QRS Dur : 070 ms QT Int : 376 ms P-R-T Axes : 013 022 025 degrees QTc Int : 384 ms POOR DATA QUALITY, INTERPRETATION MAY BE ADVERSELY AFFECTED SINUS RHYTHM WITH SHORT MN LOW VOLTAGE QRS SEPTAL INFARCT , AGE UNDETERMINED ABNORMAL ECG WHEN COMPARED WITH ECG OF 09-APR-2018 11:30, NO SIGNIFICANT CHANGE WAS FOUND Confirmed by Kamaljit Guzman MD ([id number]) on 08/22/2018 12:42:38 PM Referred By: Confirmed By:Kamaljit Guzman MD
--- NOTE | 2018-08-22 13:08 | PN ---
Teaching Attending Note Name of Resident: Renu Wilkinson ATTENDING PHYSICIAN STATEMENT I saw and evaluated the patient. I reviewed the resident's note and discussed the case with the resident. I agree with the resident's findings and plan as documented with exceptions below. SUBJECTIVE: patient seen and examined. No complaints, doing well. OBJECTIVE: Vital Signs Period Temp Pulse Resp BP Sys/Enamorado Pulse Ox Last 24 Hr 96.9 F-97.8 F 62-74 15-18 136-148/63-73 99 Intake & Output 08/19/18 08/20/18 08/21/18 08/22/18 23:59 23:59 23:59 23:59 Weight 168 lb General: lying in bed in no acute distress Chest: CTAB, no rales or wheezing Abdomen:Soft, NT, ND Extremities: no edema CVS:S1S2 regular Home Medications Medication Instructions Recorded Levothyroxine [Synthroid -] 75 mcg PO DAILY 04/09/18 Losartan Potassium 100 mg PO HS 04/09/18 Metoprolol Tartrate 100 mg PO DAILY 04/09/18 Nifedipine ER [Procardia XL -] 60 mg PO DAILY 04/09/18 Rosuvastatin Calcium [Crestor] 10 mg PO HS 04/09/18 Aspirin 81 mg PO DAILY 07/20/18 Lifitegrast [Xiidra] 1 each OP BID 07/20/18 Meclizine HCl 12.5 mg PO TID PRN 07/20/18 Pantoprazole Sodium 40 mg PO DAILY #30 tablet. 07/21/18 Active Medications Aspirin (Asa -) 81 mg PO DAILY [facility] Last Admin: 08/22/18 11:32 Dose: 81 mg Enoxaparin Sodium (Lovenox -) 40 mg SQ DAILY [facility] Last Admin: 08/22/18 09:43 Dose: 40 mg Levothyroxine Sodium (Synthroid -) 75 mcg PO DAILY@0700 [facility] Last Admin: 08/22/18 11:33 Dose: Not Given Losartan Potassium (Cozaar -) 100 mg PO HS [facility] Meclizine HCl (Antivert -) 12.5 mg PO TID PRN PRN Reason: VERTIGO Metoprolol Succinate (Toprol Xl -) 100 mg PO DAILY [facility] Nifedipine (Procardia Xl -) 60 mg PO DAILY [facility] Last Admin: 08/22/18 11:32 Dose: 60 mg Pantoprazole Sodium (Protonix -) 40 mg PO DAILY [facility] Last Admin: 08/22/18 11:33 Dose: 40 mg Rosuvastatin Calcium (Crestor -) 10 mg PO [facility] Laboratory Results - last 24 hr 08/22/18 08/22/18 08/22/18 00:40 00:40 06:10 WBC 5.2 RBC 3.42 L Hgb 10.4 L Hct 31.5 L MCV 91.9 MCH 30.4 MCHC 33.0 RDW 14.0 Plt Count 182 MPV 9.2 Absolute Neuts (auto) 3.3 Neutrophils % 62.8 D Lymphocytes % 20.1 D Monocytes % 11.0 H Eosinophils % 5.2 H Basophils % 0.9 Nucleated RBC % 0 Sodium 143 144 Potassium 4.3 3.9 Chloride 112 H 112 H Carbon Dioxide 28 27 Anion Gap 3 L 5 L BUN 18.5 H 16.2 Creatinine 1.1 1.0 Est GFR (CKD-EPI)AfAm 55.30 62.05 Est GFR (CKD-EPI)NonAf 47.71 53.54 Random Glucose 107 H 93 Calcium 9.6 9.2 Phosphorus 3.4 Magnesium 2.5 H Ferritin Total Bilirubin 0.7 AST 18 ALT 22 Alkaline Phosphatase 95 Creatine Kinase 199 H Creatine Kinase Index 1.3 CK-MB (CK-2) 2.7 Troponin I < 0.02 B-Natriuretic Peptide 405.9 Total Protein 6.5 Albumin 3.8 Triglycerides 51 Cholesterol 155 Total LDL Cholesterol 69 HDL Cholesterol 81 H 08/22/18 08/22/18 08/22/18 06:10 06:10 09:50 WBC 4.4 RBC 3.38 L Hgb 10.2 L Hct 30.7 L MCV 90.7 MCH 30.3 MCHC 33.4 RDW 13.9 Plt Count 178 MPV 9.0 Absolute Neuts (auto) Neutrophils % Lymphocytes % Monocytes % Eosinophils % Basophils % Nucleated RBC % Sodium Potassium Chloride Carbon Dioxide Anion Gap BUN Creatinine Est GFR (CKD-EPI)AfAm Est GFR (CKD-EPI)NonAf Random Glucose Calcium Phosphorus Magnesium Ferritin 22.6 Total Bilirubin AST ALT Alkaline Phosphatase Creatine Kinase Creatine Kinase Index CK-MB (CK-2) Troponin I < 0.02 B-Natriuretic Peptide Total Protein Albumin Triglycerides Cholesterol Total LDL Cholesterol HDL Cholesterol 08/22/18 11:08 WBC RBC Hgb Hct MCV MCH MCHC RDW Plt Count MPV Absolute Neuts (auto) Neutrophils % Lymphocytes % Monocytes % Eosinophils % Basophils % Nucleated RBC % Sodium Potassium Chloride Carbon Dioxide Anion Gap BUN Creatinine Est GFR (CKD-EPI)AfAm Est GFR (CKD-EPI)NonAf Random Glucose Calcium Phosphorus Magnesium Ferritin Total Bilirubin AST ALT Alkaline Phosphatase Creatine Kinase 175 Creatine Kinase Index 1.3 CK-MB (CK-2) 2.4 Troponin I < 0.02 B-Natriuretic Peptide Total Protein Albumin Triglycerides Cholesterol Total LDL Cholesterol HDL Cholesterol ASSESSMENT AND PLAN: 77 yom with PMHx of CAD (last cath in 03/2018 with non obstructive CAD), HTN, HLD , TIA, Anemia, Hypothyroidism, left ear deafness, GERD and vertigo admitted with Chest pain Chest pain, ACS ruled out CAD (last cath in 03/2018 with non obstructive CAD) HTN HLD TIA Anemia Hypothyroidism Left ear deafness GERD Vertigo Plan: Cardiology noted, trop neg x 2. Continue home meds outpatient follow up with Dr. Kwok for stress test Dc home today Plan discussed with patient, all questions answered.
[2018-08-22] MEDS ORDERED: LOSARTAN POTASSIUM 50 MG TABLET (FP) PO SCH (22:00)
[2018-08-22] MEDS ORDERED: ROSUVASTATIN CA 10 MG TABLET (FP) PO SCH (22:00)
[2018-08-23 04:10] LABS: SERUM IRON SATURATION 13 % (15-55); TOTAL IRON BINDING CAPACITY 292 ug/dL (250-450); UIBC 255 ug/dL (118-369)
== END 2018-08-22 13:15 | disposition home or self-care (01) ==
LOC: JER 22:56 → UNDOADMOB 08-22 02:03 → JERBED 08-22 02:03
PROVIDERS: ADMIT Internal Medicine; ATTEND Hospitalist
PROC: 3E023GC Introduction of Other Therapeutic Substance into Muscle, Percutaneous Approach (ICD-10-PCS; principal; 2018-08-22)
DX: R07.9 Chest pain, unspecified (principal); I25.119 Atherosclerotic heart disease of native coronary artery with unspecified angina pectoris; Z98.61 Coronary angioplasty status; I10 Essential (primary) hypertension; I34.1 Nonrheumatic mitral (valve) prolapse; D64.9 Anemia, unspecified; E03.9 Hypothyroidism, unspecified; E78.5 Hyperlipidemia, unspecified; K21.9 Gastro-esophageal reflux disease without esophagitis; F41.9 Anxiety disorder, unspecified; M19.90 Unspecified osteoarthritis, unspecified site; R63.4 Abnormal weight loss; Z68.30 Body mass index [BMI] 30.0-30.9, adult; Z79.82 Long term (current) use of aspirin; Z88.8 Allergy status to other drugs, medicaments and biological substances; Z86.73 Personal history of transient ischemic attack (TIA), and cerebral infarction without residual deficits
CPT/HCPCS: 36415; 71045-TC-FY; 80048; 80053; 80061; 82550; 82553; 82728; 83540; 83550; 83721; 83735; 83880; 84100; 84155; 84165; 84484; 85025; 85027; 93005; 93010; 96372; 99284-25; G0378

== ENCOUNTER 2018-10-19 15:54 | Observation (INO) | payer OTHER ==
--- NOTE | 2018-10-19 16:15 | PDOC ---
History of Present Illness - General Chief Complaint: Chest Pain Stated Complaint: CHEST PAIN Time Seen by Provider: 10/19/18 16:14 - History of Present Illness Initial Comments: 10/19/18 16:37 77F with pmh of nonobstructive CAD on coronary angiogram 2018, HTN, HLD, TIAx2 , arthritis , gait disorder, Anemia, Hypothyroidism hypercalcemia due to parathyroid disorder, presents to the ED with episode of sever chest pain which started in the subxiphoid going up and left at 2:30pm today associated 5min later with difficulty speaking, and cold sensation in her head and legs with "tetany" of her left leg which briefly became stiff. After the pain started she took 3 SL Nitro, 1 every 5 minutes after which she felt some relief. She recently had a stress test done at Dr. Kwok's office 3 weeks ago which she was told showed no change from previous. Previous visit to our ED in August, and subsequent admission for very similar symptoms. No etiology for her symptoms was found and she was discharged. Symptoms have all resolved except for a strange sensation that "something's there" in her left chest. Neurologist: Dr. Rivera Licensed Certified Orthotist: Dr. Kwok PCP: Dr. Payne Past History - Past Medical History Allergies/Adverse Reactions: Allergies Allergy/AdvReac Type Severity Reaction Status Date / Time ezetimibe [From Zetia] Allergy Intermediate Rash Verified 10/19/18 16:15 hydrochlorothiazide Allergy Intermediate Rash Verified 10/19/18 16:15 Sulfa (Sulfonamide Allergy Intermediate Rash Verified 10/19/18 16:15 Antibiotics) benzocaine Allergy Unknown UNKNOWN Verified 10/19/18 16:15 FRAGRANCES Allergy Intermediate Cough Uncoded 10/19/18 16:15 Home Medications: Ambulatory Orders Levothyroxine [Synthroid -] 75 mcg PO DAILY 04/09/18 Losartan Potassium 100 mg PO HS 04/09/18 Metoprolol Tartrate 100 mg PO DAILY 04/09/18 Nifedipine ER [Procardia XL -] 60 mg PO DAILY 04/09/18 Rosuvastatin Calcium [Crestor] 10 mg PO HS 04/09/18 Aspirin 81 mg PO DAILY 07/20/18 Lifitegrast [Xiidra] 1 each OP BID 07/20/18 Meclizine HCl 12.5 mg PO TID PRN 07/20/18 Pantoprazole Sodium 40 mg PO DAILY #30 tablet. 07/21/18 Anemia: Yes Asthma: No Cancer: No Cardiac Disorders: Yes (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) CVA: Yes (TIA) COPD: No CHF: No Dementia: No Diabetes: No GI Disorders: Yes (GERD,M HIATAL HERNIA WITH NERD, GASTRITIS) Disorders: No HTN: Yes Hypercholesterolemia: Yes Liver Disease: No Seizures: No Thyroid Disease: Yes (HYPOTHYROIDISM) - Surgical History Abdominal Surgery: No Appendectomy: Yes (EARLY 60S) Cardiac Surgery: No (CARDIAC CATH 2008; NORMAL PER PT) Cholecystectomy: No Lung Surgery: No Neurologic Surgery: No Orthopedic Surgery: Yes (LEFT shoulder arthroscopy 2007) - Immunization History Immunization Up to Date: Yes - Suicide/Smoking/Psychosocial Hx Smoking Status: No Smoking History: Never smoked Have you smoked in the past 12 months: No Number of Cigarettes Smoked Daily: 0 Hx Alcohol Use: No Drug/Substance Use Hx: No Substance Use Type: None Hx Substance Use Treatment: No Cardiac Specific PMH - Complaint Specific PMHX Pacemaker: No Review of Systems - Review of Systems Able to Perform ROS?: Yes Is the patient limited [place] proficient: No HEENTM: No: Symptoms Reported Respiratory: No: Symptoms reported Cardiac (ROS): Yes: See HPI ABD/GI: No: Symptoms Reported : No: Symptoms Reported Musculoskeletal: No: Symptoms Reported Integumentary: No: Symptoms Reported Neurological: Yes: See HPI All Other Systems: Reviewed and Negative *Physical Exam - Vital Signs Last Vital Signs Temp Pulse Resp BP Pulse Ox 97.6 F 78 18 119/72 100 10/19/18 16:12 10/19/18 16:12 10/19/18 16:12 10/19/18 16:12 10/19/18 16:12 - Physical Exam General Appearance: Yes: Thin. No: Apparent Distress HEENT: positive: EOMI, MARIA C, Normal ENT Inspection Respiratory/Chest: positive: Lungs Clear, Normal Breath Sounds. negative: Chest Tender, Respiratory Distress Cardiovascular: positive: Regular Rhythm, Regular Rate, S1, S2 Gastrointestinal/Abdominal: positive: Normal Bowel Sounds, Flat, Soft. negative : Tender Musculoskeletal: positive: Normal Inspection. negative: CVA Tenderness Extremity: positive: Normal Capillary Refill, Normal Inspection, Normal Range of Motion Integumentary: positive: Normal Color, Dry, Warm Neurologic: positive: Fully Oriented, Alert, Normal Mood/Affect, Normal Response , Motor Strength 5/5 ED Treatment Course - LABORATORY CBC & Chemistry Diagram: 10/19/18 17:21 10/19/18 17:21 - ADDITIONAL ORDERS Additional order review: Laboratory Results 10/19/18 10/19/18 10/19/18 18:05 17:21 17:21 PT with INR 13.00 INR 1.10 H Sodium Potassium Chloride Carbon Dioxide Anion Gap BUN Creatinine Est GFR (CKD-EPI)AfAm Est GFR (CKD-EPI)NonAf Random Glucose Calcium Phosphorus Magnesium Total Bilirubin AST ALT Alkaline Phosphatase Creatine Kinase Creatine Kinase Index CK-MB (CK-2) Troponin I Total Protein Albumin Triglycerides Cholesterol Total LDL Cholesterol HDL Cholesterol TSH Urine Color Yellow Urine Appearance Clear Urine pH 8.0 D Ur Specific [place] 1.007 L Urine Protein Negative Urine Glucose (UA) Negative Urine Ketones Negative Urine Blood Negative Urine Nitrite Negative Urine Bilirubin Negative Urine Urobilinogen 0.2 Ur Leukocyte Esterase Negative Blood Type A POSITIVE Antibody Screen Negative 10/19/18 17:21 PT with INR INR Sodium 144 Potassium 4.5 Chloride 108 H Carbon Dioxide 28 Anion Gap 8 BUN 15.8 Creatinine 1.2 Est GFR (CKD-EPI)AfAm 49.43 Est GFR (CKD-EPI)NonAf 42.65 Random Glucose 92 Calcium 10.4 H Phosphorus 2.7 Magnesium 2.3 Total Bilirubin 1.3 H AST 19 ALT 21 Alkaline Phosphatase 105 Creatine Kinase 245 H Creatine Kinase Index 1.5 CK-MB (CK-2) 3.9 H Troponin I < 0.02 Total Protein 7.5 Albumin 4.5 Triglycerides 84 Cholesterol 216 H Total LDL Cholesterol 84 HDL Cholesterol 101 H TSH 0.34 L Urine Color Urine Appearance Urine pH Ur Specific [place] Urine Protein Urine Glucose (UA) Urine Ketones Urine Blood Urine Nitrite Urine Bilirubin Urine Urobilinogen Ur Leukocyte Esterase Blood Type Antibody Screen 10/19/18 17:21 RBC 4.11 MCV 89.6 MCHC 33.3 RDW 13.7 MPV 9.2 Neutrophils % 66.2 Lymphocytes % 19.5 Monocytes % 10.0 Eosinophils % 3.1 Basophils % 1.2 - RADIOLOGY Radiology Studies Ordered: Category Date Time Status CHEST CTA [CT] Stat CT Scan 10/19/18 18:[address] (STROKE) [CT] Stat CT Scan 10/19/18 16:32 Completed NECK CTA [CT] Stat CT Scan 10/19/18 19:17 Completed - Medications Given in the ED: ED Medications Discontinued Medications Generic Name Dose Route Start Last Admin Trade Name Rachelle PRN Reason Stop Dose Admin Acetaminophen 1,000 mg 10/19/18 20:38 10/19/18 20:56 Ofirmev Injection - IVPB 10/19/18 20:39 1,000 mg ONCE ONE Administration Sodium Chloride 500 mls @ 500 mls/hr 10/19/18 18:35 10/19/18 18:54 Normal Saline - IV 10/19/18 19:34 Not Given ASDIR STA Sodium Chloride 1,000 mls @ 1,000 mls/hr 10/19/18 18:39 10/19/18 18:45 Normal Saline - IV 10/19/18 19:38 1,000 mls/hr ASDIR STA Administration Medical Decision Making - Medical Decision Making 10/19/18 17:52 78F with h/o TIA presents with aphasia for 30 sec and severe chest pain. Due to the patrient's sudden aphasia-like symptom we called a scott Pino to r/o stroke/TIA. In addition we will r/o for dissection due to chest pain, relieved by nitro, and neuro symptoms. Will also check electrolytes as the patient has known hypercalcemia which would explain the rigidity in her leg. Enzyme and ekg to r/o HI Spoke to Dr. Rivera, patient's neurologist. Patient was never diagnosed with a neurological condition that he knows of since the last visit. 10/19/18 18:20 EKG: Normal sinus rhythm, Normal EKG 10/19/18 18:[address] Burton who will call back later tonight after getting access to records. 10/19/18 20:50 CTA read: - Normal enhancement of the thoracic and abdominal aorta down through its bifurcation without evidence of aneurysmal dilatation or dissection Normal enhancement of the common carotid artery and internal carotid artery up to the cavernous carotid artery level without evidence of dissection. - There is no evidence of hemodynamically significant stenosis at the common carotid bifurcation, bilaterally. Both vertebral arteries appear unremarkable including the vertebrobasilar junction and proximal basilar artery without evidence of dissection. Spoke to Dr. Burton who confirmed using recorded that last stress test 3 months ago was essentially normal/unchanged from previous. 10/19/18 20:56 Will admit to stroke unit for TIA *DC/Admit/Observation/Transfer Diagnosis at time of Disposition: TIA (transient ischemic attack), Chest pain - Discharge Dispostion Decision to Admit order: Yes Decision to Admit order Date/Time: Decision to Admit Order Category Date Time Status Decision to Admit to Hospital Routine Admission 10/19/18 19:58 Active - Referrals Referrals: Eugene Payne MD [Primary Care Provider] - - Patient Instructions - Post Discharge Activity NIH Stroke Scale - Last Known Well Date/Time & Onset Date Last Known Well: 10/19/18 Time Last Known Well: 14:30 - Initial Evaluation Level of consciousness: Alert Ask patient the month and their age: Answers both correctly Ask patient to open & close eyes; make fist and let go: Obeys both correctly Best gaze (horizontal eye movement): Normal Visual field testing: No visual field loss Facial paresis (Show teeth/raise eyebrows/close eyes tight): Normal symmetrical movement Motor Function: Left Arm: Normal Motor Function: Right Arm: Normal (extends arm 90 (or 45) degrees for 10 seconds without drift Motor Function: Left Leg: Normal (extends leg 30 degrees for 5 seconds without drift) Motor Function: Right Leg: Normal (extends leg 30 degrees for 5 seconds without drift) Limb Ataxia: No ataxia Sensory(Use pinprick test arms,legs,trunk,face/side to side): Normal Best language (Describe picture, name items, read sentences): No Aphasia Dysarthria (read several words): Normal articulation Extinction and Inattention: No abnormality - Total Score NIH Stroke Scale Score: 0 tPA Exclusion Checklist 0-3hr - Time Elapsed Date last known well: 10/19/18 Time last known well: 14:00 Elaspsed time: Day(s) and 7 Hour(s) and 8 Minutes - Exclusion Criteria 0-3hr SBP greater than 185 or DBP greater than 110mmHg despite tx: No Recent IC/spinal surgery,head trauma or stroke w/in last 3mo: No Hx of previous IC hemorrhage, IC neoplasm, AVM or aneurysm: No Active internal bleeding: No Blding diathesis(low plt ct, inc PTT,INR>1.7 or use of NOAC): No Symptoms suggest subarachnoid hemorrhage: No CT demonstrates multilobar infarct(>1/3 cerebral hemiphere): No
[2018-10-19 17:34] LABS: BASO % 1.2 % (0-2.0); EOS % 3.1 % (0-4.5); HEMATOCRIT 36.9 % (32.4-45.2); HEMOGLOBIN 12.3 GM/dL (10.7-15.3); LYMPH % 19.5 % (8-40); MCH 29.8 pg (25.7-33.7); MCHC 33.3 g/dl (32.0-36.0); MEAN CELL VOLUME 89.6 fl (80-96); MEAN PLT VOLUME 9.2 fl (7.5-11.1); NEUT % 66.2 % (42.8-82.8); PLATELET COUNT 185 K/MM3 (134-434); RBC 4.11 M/mm3 (3.60-5.2); RDW 13.7 % (11.6-15.6); WHITE BLOOD COUNT 4.9 K/mm3 (4.0-10.0)
--- NOTE | 2018-10-19 17:42 | PDOC ---
Documentation entered by Patricia Wilkins SCRIBE, acting as scribe for Galina Dobson DO. Galina Dobson DO: This documentation has been prepared by the addieibe, Patricia Wilkisn SCRIBE, under my direction and personally reviewed by me in its entirety. I confirm that the documentation accurately reflects all work, treatment, procedures, and medical decision making performed by me. Attending Attestation - Resident Resident Name: Hermann José - ED Attending Attestation I have performed the following: I have examined & evaluated the patient, The case was reviewed & discussed with the resident, I agree w/resident's findings & plan, Exceptions are as noted - HPI HPI: 10/19/18 17:57 The patient is an 78-year-old female with a past medical history significant for TIA, HTN, and hypothyroidism presents to the emergency department with left- sided chest pain, lower extremity weakness, and difficulty speaking. The patient reports she developed left-sided chest pain around 2:30 pm while she was sitting down. The patient reports the pain was associated with nausea, denies diaphoresis, or pain radiating elsewhere. About 5 minutes into the symptom presentation, she has the sensation of feeling cold all over, lower extremity weakness, and tetany to the right leg. About 10 minutes later, she was having difficulty with speech for about 30 seconds. The patient reports all the symptoms had self resolved, the patient is currently complaining of mild left-sided chest pain. At home, the patient had 3 sublingual nitro, q5 minutes, with relief. Neurologist: Dr. Rivera Check Cashier: Dr. Kwok PCP: Dr. Payne - Physicial Exam PE: 10/19/18 18:01 Constitutional: Awake, alert, oriented. No acute distress. Head: Normocephalic. Atraumatic Eyes: PERRL. EOMI. Conjunctivae are not pale. ENT: Mucous membranes are moist and intact. Posterior pharynx without exudates or erythema. Uvula midline. Neck: Supple. Full ROM. No lymphadenopathy. Cardiovascular: Regular rate. Regular rhythm. S1, S2 regular. Distal pulses are 2+ and symmetric. Pulmonary/Chest: No evidence of respiratory distress. Clear to auscultation bilaterally No wheezing, rales or rhonchi. Abdominal: Soft and non-distended. There is no tenderness. No rebound, guarding or rigidity. No organomegaly. No palpable masses. Good bowel sounds. Back: No CVA tenderness. Musculoskeletal: No edema. No cyanosis. No clubbing. Full range of motion in all extremities. No calf tenderness. Skin: Skin is warm and dry. No petechiae. No purpura. Neurological: Alert and oriented to person, place, and time. Cranial nerves II -XII are grossly intact. Normal finger to nose. Normal speech. Strength is grossly symmetric. No sensory deficits. - Medical Decision Making 10/19/18 17:36 I, Dr. Galina Dobson, DO, attest that this document has been prepared under my direction and personally reviewed by me in its entirety. I further attest, that it accurately reflects all work, treatment, procedures and medical decision -making performed by me. 10/19/18 17:36 a/p: 78yo female with hx of TIA/htn with cp and then an episode of difficulty speaking that lasted 30 sec -felt generally weak in legs -pt states cp still present assoc with nausea, no sob, no diaphoresis -pt denies abd pain -no dysuria -no recent travel, no pleuritic cp, no cough -no recent abx -pt with code dubois called - pt went to head ct -will send labs -concern for cp and then neuro symptoms - will send for cta chest for dissection study -PMD - stevan, Neuro: Miguel, Cards: Sundar -will need admission for further eval -suspect TIA 10/19/18 19:[address] without acute findings trop neg pt pending cta then admission resident discussed with Chela 10/19/18 21:[address] will need admission for tia and cp 10/19/18 21:14 resident discussed the case with STEF who accepts pt to service Heart Score/ECG Review - ECG Intrepretation Comment:: 10/19/18 17:36 sinus at 68, nl axis, nl interval, no acute st/t wave findings
[2018-10-19 17:48] LABS: INR 1.1 (0.83-1.09)
[2018-10-19 18:22] LABS: ALBUMIN 4.5 g/dl (3.4-5.0); ALK PHOS 105 U/L (45-117); ANION GAP 8 MMOL/L (8-16); BILIRUBIN,TOTAL 1.3 mg/dL (0.2-1); BLOOD UREA NITROGEN 15.8 mg/dL (7-18); CALCIUM 10.4 mg/dL (8.5-10.1); CHLORIDE 108 mmol/L (98-107); CHOLESTEROL 216 mg/dL (50-200); CO2 28 mmol/L (21-32); CREATININE 1.2 mg/dL (0.55-1.3); GLUCOSE,RANDOM 92 mg/dL (74-106); HDL CHOLESTEROL 101 mg/dL (40-60); MAGNESIUM 2.3 mg/dL (1.8-2.4); PHOSPHOROUS 2.7 mg/dL (2.5-4.9); POTASSIUM 4.5 mmol/L (3.5-5.1); SGOT/AST 19 U/L (15-37); SGPT/ALT 21 U/L (13-61); SODIUM 144 mmol/L (136-145); TOT PROT 7.5 g/dl (6.4-8.2); TRIGLYCERIDES 84 mg/dL (0-150)
[2018-10-19] MEDS ORDERED: SODIUM CHLORIDE 500 ML IV STA (18:35)
[2018-10-19] MEDS ORDERED: SODIUM CHLORIDE 1,000 ML IV STA (18:39)
[2018-10-19 19:02] LABS: URINE APPEARANCE CLEAR; URINE BILIRUBIN NEGATIVE (NEGATIVE); URINE COLOR YELLOW; URINE GLUCOSE (UA) NEGATIVE (NEGATIVE); URINE KETONE NEGATIVE (NEGATIVE); URINE LEUK ESTERASE NEGATIVE (NEGATIVE); URINE NITRITE NEGATIVE (NEGATIVE); URINE PROTEIN NEGATIVE (NEGATIVE); URINE UROBILINOGEN 0.2 mg/dL (0.2-1.0)
[2018-10-19] MEDS ORDERED: ACETAMINOPHEN 1000 MG/100 ML VIAL (NON FORMULARY) IVPB ONE (20:38)
[2018-10-19] MEDS ORDERED: ACETAMINOPHEN INJECTION 100 ML IVPB ONE (20:43)
[2018-10-19] MEDS ORDERED: MECLIZINE HCL 12.5 MG TABLET PO PRN (21:57)
[2018-10-19] MEDS ORDERED: PATIENT'S OWN MEDICATION (NON-FORMULARY) (Lifitegrast [Xiidra] 1 EACH) OP SCH (22:00)
[2018-10-19] MEDS ORDERED: LOSARTAN POTASSIUM 100 MG TABLET PO SCH (22:00)
[2018-10-19] MEDS ORDERED: ROSUVASTATIN CA 10 MG TABLET (FP) PO SCH (22:00)
[2018-10-19] MEDS ORDERED: LOSARTAN POTASSIUM 50 MG TABLET (FP) ONE (22:06)
--- NOTE | 2018-10-19 22:10 | PN ---
Teaching Attending Note ATTENDING PHYSICIAN STATEMENT I saw and evaluated the patient. I reviewed the resident's note and discussed the case with the resident. I agree with the resident's findings and plan as documented. Seen and examined; please see resident note for further history. Briefly, this is a 78 y/o female presenting with L-sided CP and speech difficulties ( suspected TIA in ER) that have since resolved; NIHSS currently [address] CP similar to prior descriptions; had non-obstructing CAD in 03/2018 and was referred for OP stress testing after August visit. Her CV is Dr. Kwok. She is hemodynamically stable and afebrile with no EKG changes or troponin. Has had 3 TIAs here and identical presentation in 03/2018 with negative workup. At that time she is documented as being stressed about her 's illness. VS, labs, imaging reviewed NAD, AAO, resting comfortably in bed NC AT EOMI PERRLA RRR s1/2, systolic murmur Lungs CTAB, w/ sym exp NT ND +BS CN2-12 wnl, no fnd EKG reviewed; compared to prior CXR reviewed Telemetry ordered Prior CV consults reviewed No cath report available but discussed in consult from cardiology 2018 Prior MRI 03/2018 reviewed; negative for acute findings with minimal chronic MV ischemic changes/moderate atrophy Echo 2018 with mod MR/TR, normal LVEF Carotid Dopplers 2019 show minimal plaque with no occlusive disease ASSESSMENT AND PLAN: Patient with known non-obstructive CAD presents with CP and TIA sx # Non-obstructive CAD with CP, ?origin -Patient had negative cath 03/2018. Obtain OP records with ST after august admission. Second admit for CP with known non-obstructing CAD this summer. -Tele, trend troponin. Consider CV consult in the AM # Speech issues-r/o TIA -Resolved, negative head CT. MRI negative last visit; echo and carotids done at that time negative for acute disease. No need to repeat echo/carotid. Can recheck MRI in AM and consider neuro consult in the AM. Similar sx to 03/2108. 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 Fu with cardio. # GERD -Noted hx; could be contributing to CP if not controlled # Hypothyroid -Now with low TSH; FT4 pending. Recent parathyroid scan. # HTN # HLD
--- NOTE | 2018-10-19 23:09 | HP ---
CHIEF COMPLAINT: Diffuse tingling/chest pain PCP: Dr. Payne Neurologist: Dr. Rivera Supervisor Smoke Control: Dr. Kwok HISTORY OF PRESENT ILLNESS: Patient is an 78 year old female with PMH TIA x2, CAD, HTN, HLD, hypothyroidism , PTH disorder, and vertigo who presents with chest pain and diffuse tingling. She was sitting down comfortably at the onset of symptoms. Pain began in her subxiphoid region and radiated up and to the left-side of her chest. Pt took nitro x3 (5 min apart) with mild improvement. After about 20 min, she began feeling nauseous and uneasy. Pt began having tingling and "cold sensations" in her b/l feet, hands, head, and periorally. Her lower extremities also felt heavier than usual. Pt reports that she has episodes of angina about once a month, but has never experienced tingling sensations. She denies any associated paralysis, focal weaknesses, slurring of speech, or changes in vision. She also denies any SOB, diaphoresis, fevers, or chills. Upon arrival to the ED, pt's symptoms improved. She is no longer experiencing any chest pain or tingling but her lower extremities still feel heavy. Pt denies any recent illnesses and has not had any changes in her medications. Pt endorses mild stress and anxiety at home regarding her who is ill. ER course was notable for: (1) EKG: NRS, no ischemic changes (2) CT head/CTA chest & neck: neg Recent Travel: denies PAST MEDICAL HISTORY: TIA x2 CAD HTN HLD Hypothyroidism PTH disorder PAST SURGICAL HISTORY: Appendectomy Shoulder surgery Breast biopsy x2 Social History: Smoking: denies Alcohol: denies Drugs: denies Family History: Father: dementia Mother: arthritis Brother: pre-diabetic Allergies ezetimibe [From Zetia] Allergy (Intermediate, Verified 10/19/18 16:15) Rash hydrochlorothiazide Allergy (Intermediate, Verified 10/19/18 16:15) Rash Sulfa (Sulfonamide Antibiotics) Allergy (Intermediate, Verified 10/19/18 16:15) Rash benzocaine Allergy (Unknown, Verified 10/19/18 16:15) UNKNOWN FRAGRANCES Allergy (Intermediate, Uncoded 10/19/18 16:15) Cough HOME MEDICATIONS: Home Medications Medication Instructions Recorded Levothyroxine [Synthroid -] 75 mcg PO DAILY 04/09/18 Losartan Potassium 100 mg PO HS 04/09/18 Metoprolol Tartrate 100 mg PO DAILY 04/09/18 Nifedipine ER [Procardia XL -] 60 mg PO DAILY 04/09/18 Rosuvastatin Calcium [Crestor] 10 mg PO HS 04/09/18 Aspirin 81 mg PO DAILY 07/20/18 Lifitegrast [Xiidra] 1 each OP BID 07/20/18 Meclizine HCl 12.5 mg PO TID PRN 07/20/18 Pantoprazole Sodium 40 mg PO DAILY #30 tablet. 07/21/18 REVIEW OF SYSTEMS CONSTITUTIONAL: Absent: fever, chills, diaphoresis, generalized weakness, malaise, loss of appetite, weight change HEENT: Absent: rhinorrhea, nasal congestion, throat pain, throat swelling, difficulty swallowing, mouth swelling, ear pain, eye pain, visual changes CARDIOVASCULAR: chest pain Absent: syncope, palpitations, irregular heart rate, lightheadedness, peripheral edema RESPIRATORY: Absent: cough, shortness of breath, dyspnea with exertion, orthopnea, wheezing, stridor, hemoptysis GASTROINTESTINAL: nausea Absent: abdominal pain, abdominal distension, vomiting, diarrhea, constipation, melena, hematochezia GENITOURINARY: Absent: dysuria, frequency, urgency, hesitancy, hematuria, flank pain, genital pain MUSCULOSKELETAL: Absent: myalgia, arthralgia, joint swelling, back pain, neck pain SKIN: Absent: rash, itching, pallor HEMATOLOGIC/IMMUNOLOGIC: Absent: easy bleeding, easy bruising, lymphadenopathy, frequent infections ENDOCRINE: Absent: unexplained weight gain, unexplained weight loss, heat intolerance, cold intolerance NEUROLOGIC: tingling, cold sensations Absent: headache, focal weakness, dizziness, unsteady gait, seizure, mental status changes, bladder or bowel incontinence PSYCHIATRIC: Absent: anxiety, depression, suicidal or homicidal ideation, hallucinations. PHYSICAL EXAMINATION Vital Signs - 24 hr 10/19/18 10/19/18 16:12 22:01 Temperature 97.6 F Pulse Rate 78 Pulse Rate [ 66 Left] Respiratory 18 18 Rate Blood Pressure 119/72 Blood Pressure 148/72 [Left Arm] O2 Sat by Pulse 100 100 Oximetry (%) GENERAL: Awake, alert, and fully oriented, in no acute distress. HEAD: Normal with no signs of trauma. EYES: Pupils equal, round and reactive to light, extraocular movements intact, sclera anicteric, conjunctiva clear. No lid lag. EARS, NOSE, THROAT: Ears normal, nares patent, oropharynx clear without exudates. Moist mucous membranes. NECK: Normal range of motion, supple without lymphadenopathy, JVD, or masses. LUNGS: Breath sounds equal, clear to auscultation bilaterally. No wheezes, and no crackles. No accessory muscle use. HEART: Regular rate and rhythm, normal S1, S2, midsystolic click ABDOMEN: Soft, nontender, not distended, normoactive bowel sounds, no guarding, no rebound, no masses. No hepatomegaly or splenomegaly. MUSCULOSKELETAL: Normal range of motion at all joints. No bony deformities or tenderness. No CVA tenderness. UPPER EXTREMITIES: 2+ pulses, warm, well-perfused. No cyanosis. No clubbing. No peripheral edema. LOWER EXTREMITIES: 2+ pulses, warm, well-perfused. No calf tenderness. No peripheral edema. NEUROLOGICAL: Cranial nerves II-XII intact. Normal speech. Normal gait. 5/5 strength. Full sensation throughout. PSYCHIATRIC: Cooperative. Good eye contact. Appropriate mood and affect. SKIN: Warm, dry, normal turgor, no rashes or lesions noted, normal capillary refill. Laboratory Results - last 24 hr CBC, BMP WBC 4.9 K/mm3 (4.0-10.0) Hgb 12.3 GM/dL (10.7-15.3) Hct 36.9 % (32.4-45.2) D Plt Count 185 K/MM3 (134-434) Sodium 144 mmol/L (136-145) Potassium 4.5 mmol/L (3.5-5.1) Chloride 108 mmol/L (98-107) H Carbon Dioxide 28 mmol/L (21-32) Anion Gap 8 MMOL/L (8-16) BUN 15.8 mg/dL (7-18) Creatinine 1.2 mg/dL (0.55-1.3) Est GFR (CKD-EPI)AfAm 49.43 Est GFR (CKD-EPI)NonAf 42.65 Random Glucose 92 mg/dL (74-106) Calcium 10.4 mg/dL (8.5-10.1) H Phosphorus 2.7 mg/dL (2.5-4.9) Magnesium 2.3 mg/dL (1.8-2.4) Total Bilirubin 1.3 mg/dL (0.2-1) H AST 19 U/L (15-37) ALT 21 U/L (13-61) Alkaline Phosphatase 105 U/L (45-117) Creatine Kinase 245 U/L (26-192) H Creatine Kinase Index 1.5 % (0.0-5.0) CK-MB (CK-2) 3.9 ng/mL (0.5-3.6) H Troponin I < 0.02 ng/ml (0.00-0.05) Total Protein 7.5 g/dl (6.4-8.2) Albumin 4.5 g/dl (3.4-5.0) Triglycerides 84 mg/dL (0-150) Cholesterol 216 mg/dL (50-200) H Total LDL Cholesterol 84 mg/dL (5-100) HDL Cholesterol 101 mg/dL (40-60) H TSH 0.34 uIU/ml (0.358-3.74) L Past imaging: Cardiac cath 05/26/17: L main patent, distal LAD 30%, proximal RCA 30% ASSESSMENT/PLAN: Patient is an 78 year old female with PMH TIA x2, CAD, HTN, HLD, hypothyroidism , PTH disorder, and vertigo who presents with chest pain and diffuse tingling. #Parestesias Rule out TIA vs Somatoform vs other CT Head: no infarct, hemorrhage or acute intracranial pathology CTA head/neck, chest: negative MRI Brain pending F/u TSH, B12, RPR Pt had TIAs in the past (15 years ago and 40+ years ago) and reports different symptoms from current presentation Per Dr. Rivera (pt's current neurologist), pt has not been diagnosed with any neurologic conditions in recent history On chart review, she has had several hospital visits in the past year presenting with similar symptoms, in the setting of similar triggers/stressors Echo (Mar 2018): normal, EF: 65-70% Frequent neuro monitoring Q6H Stroke dysphagia screening and Speech & Swallow consultation [facility] Stroke Dysphagia Score: Low risk HOB 30-45 degrees Pt eval pending #Unstable angina Since-resolved s/p nitro x3 Per pt, chest pain is different than previous episodes, r/o ACS EKG: NSR, no ischemic changes Trop neg x2 Cardiac cath (05/26/17): L main patent, distal LAD 30%, proximal RCA 30% Per pt, she had a stress test [address] Kwok which was unchanged from prior Pt currently on crestor 10mg daily, asa 81mg daily at home -- will cont home meds Monitor on tele #Hypercalcemia Pt has hx of parathyroid disorder and sees Dr. Castañeda as outpt every 3 months Per pt, w/u has been done for parathyroid disease and now intervention has been warranted to date Will cont to monitor #HTN Cont home meds: Lopressor 100mg daily, Losartan 10mg HS, Procardia ER 60mg daily #Hypothyroidism Cont home meds: Synthroid 75mcg daily TSH: 0.34, free T4: 1.10 #FEN No fluids at this time Sodium-controlled diet #DVT ppx Heparin SQ Q8H #Dispo Monitor on tele Med rec'ed at bedside with patient Visit type - Emergency Visit Emergency Visit: Yes ED Registration Date: 10/19/18 Care time: The patient presented to the Emergency Department on the above date and was hospitalized for further evaluation of their emergent condition. - New Patient This patient is new to me today: Yes Date on this admission: 10/20/18 - Critical Care Critical Care patient: No ATTENDING PHYSICIAN STATEMENT I saw and evaluated the patient. I reviewed the resident's note and discussed the case with the resident. I agree with the resident's findings and plan as documented. SUBJECTIVE: OBJECTIVE: ASSESSMENT AND PLAN:
[2018-10-19 23:39] VITALS: BMI 21.0
[2018-10-20] MEDS ORDERED: LACTATED RINGERS SOLUTION 1,000 ML/1,000 ML INFUS.BAG IV SCH (00:15)
[2018-10-20] MEDS ORDERED: HEPARIN NA (PORCINE) 5,000 UNITS/ML 1ML VIAL SQ SCH ×2 (06:00→10:00)
[2018-10-20] MEDS ORDERED: LEVOTHYROXINE NA 75 MCG TABLET (FP) PO SCH (07:00)
[2018-10-20 07:08] LABS: ALBUMIN 3.5 g/dl (3.4-5.0); BILIRUBIN,TOTAL 1.2 mg/dL (0.2-1); BLOOD UREA NITROGEN 14.1 mg/dL (7-18); CALCIUM 9.4 mg/dL (8.5-10.1); POTASSIUM 3.7 mmol/L (3.5-5.1)
[2018-10-20 07:25] LABS: BASO % 1.3 % (0-2.0); EOS % 5.2 % (0-4.5); HEMATOCRIT 31.8 % (32.4-45.2); HEMOGLOBIN 10.8 GM/dL (10.7-15.3); LYMPH % 35.4 % (8-40); MCH 30.4 pg (25.7-33.7); MCHC 34.1 g/dl (32.0-36.0); MEAN CELL VOLUME 89.3 fl (80-96); MEAN PLT VOLUME 9.3 fl (7.5-11.1); MONO % 13.4 % (3.8-10.2); NEUT % 44.7 % (42.8-82.8); PLATELET COUNT 169 K/MM3 (134-434); RBC 3.56 M/mm3 (3.60-5.2); RDW 13.2 % (11.6-15.6); WHITE BLOOD COUNT 3.7 K/mm3 (4.0-10.0)
--- NOTE | 2018-10-20 08:48 | CONSULT ---
Consult - text type - Consultation Consultation Note: Neurology CHIEF COMPLAINT: Diffuse tingling/chest pain HISTORY OF PRESENT ILLNESS: Patient is an 78 year old female with PMH TIA x2, CAD, HTN, HLD, hypothyroidism , PTH disorder, and vertigo who presents with chest pain and diffuse tingling. She was sitting down comfortably at the onset of symptoms. Contacted by Dr. José at time of admission. Pain began in her subxiphoid region and radiated up and to the left-side of her chest. Pt took nitro x3 (5 min apart) with mild improvement. After about 20 min, she began feeling nauseous and uneasy. Pt began having tingling and "cold sensations" in her b/l feet, hands, head, and periorally. Her lower extremities also felt heavier than usual. Pt reported that she has episodes of angina about once a month, but has never experienced tingling sensations. She denies any associated paralysis, focal weaknesses, slurring of speech, or changes in vision. She also denies any SOB, diaphoresis, fevers, or chills. Upon arrival to the ED, pt's symptoms improved. She is no longer experiencing any chest pain or tingling but her lower extremities still feel heavy. Pt denies any recent illnesses and has not had any changes in her medications. Pt endorses mild stress and anxiety at home regarding her who is ill. CT head and CTA neck completed without acute changes. Low suspicion for infarct, MRI brain ordered. IF not able to be completed today, can just repeat CT head. No focal deficits and speech appears to be at baseline without deficits. Recent Travel: denies PAST MEDICAL HISTORY: TIA x2 CAD HTN HLD Hypothyroidism PTH disorder PAST SURGICAL HISTORY: Appendectomy Shoulder surgery Breast biopsy x2 Social History: Smoking: denies Alcohol: denies Drugs: denies Family History: Father: dementia Mother: arthritis Brother: pre-diabetic Allergies ezetimibe [From Zetia] Allergy (Intermediate, Verified 10/19/18 16:15) Rash hydrochlorothiazide Allergy (Intermediate, Verified 10/19/18 16:15) Rash Sulfa (Sulfonamide Antibiotics) Allergy (Intermediate, Verified 10/19/18 16:15) Rash benzocaine Allergy (Unknown, Verified 10/19/18 16:15) UNKNOWN FRAGRANCES Allergy (Intermediate, Uncoded 10/19/18 16:15) Cough HOME MEDICATIONS: Home Medications Medication Instructions Recorded Levothyroxine [Synthroid -] 75 mcg PO DAILY 04/09/18 Losartan Potassium 100 mg PO HS 04/09/18 Metoprolol Tartrate 100 mg PO DAILY 04/09/18 Nifedipine ER [Procardia XL -] 60 mg PO DAILY 04/09/18 Rosuvastatin Calcium [Crestor] 10 mg PO HS 04/09/18 Aspirin 81 mg PO DAILY 07/20/18 Lifitegrast [Xiidra] 1 each OP BID 07/20/18 Meclizine HCl 12.5 mg PO TID PRN 07/20/18 Pantoprazole Sodium 40 mg PO DAILY #30 tablet. 07/21/18 REVIEW OF SYSTEMS CONSTITUTIONAL: Absent: fever, chills, diaphoresis, generalized weakness, malaise, loss of appetite, weight change HEENT: Absent: rhinorrhea, nasal congestion, throat pain, throat swelling, difficulty swallowing, mouth swelling, ear pain, eye pain, visual changes CARDIOVASCULAR: chest pain Absent: syncope, palpitations, irregular heart rate, lightheadedness, peripheral edema RESPIRATORY: Absent: cough, shortness of breath, dyspnea with exertion, orthopnea, wheezing, stridor, hemoptysis GASTROINTESTINAL: nausea Absent: abdominal pain, abdominal distension, vomiting, diarrhea, constipation, melena, hematochezia GENITOURINARY: Absent: dysuria, frequency, urgency, hesitancy, hematuria, flank pain, genital pain MUSCULOSKELETAL: Absent: myalgia, arthralgia, joint swelling, back pain, neck pain SKIN: Absent: rash, itching, pallor HEMATOLOGIC/IMMUNOLOGIC: Absent: easy bleeding, easy bruising, lymphadenopathy, frequent infections ENDOCRINE: Absent: unexplained weight gain, unexplained weight loss, heat intolerance, cold intolerance NEUROLOGIC: tingling, cold sensations Absent: headache, focal weakness, dizziness, unsteady gait, seizure, mental status changes, bladder or bowel incontinence PSYCHIATRIC: Absent: anxiety, depression, suicidal or homicidal ideation, hallucinations. PHYSICAL EXAMINATION Vital Signs Period Temp Pulse Resp BP Sys/[place] Pulse Ox Last 24 Hr 97.6 F-98.2 F 60-87 18-18 119-153/63-74 99-100 GENERAL: Awake, alert, and fully oriented, in no acute distress. HEAD: Normal with no signs of trauma. EYES: Pupils equal, round and reactive to light, extraocular movements intact, sclera anicteric, conjunctiva clear. No lid lag. EARS, NOSE, THROAT: Ears normal, nares patent, oropharynx clear without exudates. Moist mucous membranes. NECK: Normal range of motion, supple without lymphadenopathy, JVD, or masses. LUNGS: Breath sounds equal, clear to auscultation bilaterally. No wheezes, and no crackles. No accessory muscle use. HEART: Regular rate and rhythm, normal S1, S2, midsystolic click ABDOMEN: Soft, nontender, not distended, normoactive bowel sounds, no guarding, no rebound, no masses. No hepatomegaly or splenomegaly. MUSCULOSKELETAL: Normal range of motion at all joints. No bony deformities or tenderness. No CVA tenderness. UPPER EXTREMITIES: 2+ pulses, warm, well-perfused. No cyanosis. No clubbing. No peripheral edema. LOWER EXTREMITIES: 2+ pulses, warm, well-perfused. No calf tenderness. No peripheral edema. NEUROLOGICAL: Cranial nerves II-XII intact. Normal speech. Normal gait. 5/5 strength. Full sensation throughout. PSYCHIATRIC: Cooperative. Good eye contact. Appropriate mood and affect. SKIN: Warm, dry, normal turgor, no rashes or lesions noted, normal capillary refill. Laboratory Results - last 24 hr CBC, BMP WBC 4.9 K/mm3 (4.0-10.0) Hgb 12.3 GM/dL (10.7-15.3) Hct 36.9 % (32.4-45.2) D Plt Count 185 K/MM3 (134-434) Sodium 144 mmol/L (136-145) Potassium 4.5 mmol/L (3.5-5.1) Chloride 108 mmol/L (98-107) H Carbon Dioxide 28 mmol/L (21-32) Anion Gap 8 MMOL/L (8-16) BUN 15.8 mg/dL (7-18) Creatinine 1.2 mg/dL (0.55-1.3) Est GFR (CKD-EPI)AfAm 49.43 Est GFR (CKD-EPI)NonAf 42.65 Random Glucose 92 mg/dL (74-106) Calcium 10.4 mg/dL (8.5-10.1) H Phosphorus 2.7 mg/dL (2.5-4.9) Magnesium 2.3 mg/dL (1.8-2.4) Total Bilirubin 1.3 mg/dL (0.2-1) H AST 19 U/L (15-37) ALT 21 U/L (13-61) Alkaline Phosphatase 105 U/L (45-117) Creatine Kinase 245 U/L (26-192) H Creatine Kinase Index 1.5 % (0.0-5.0) CK-MB (CK-2) 3.9 ng/mL (0.5-3.6) H Troponin I < 0.02 ng/ml (0.00-0.05) Total Protein 7.5 g/dl (6.4-8.2) Albumin 4.5 g/dl (3.4-5.0) Triglycerides 84 mg/dL (0-150) Cholesterol 216 mg/dL (50-200) H Total LDL Cholesterol 84 mg/dL (5-100) HDL Cholesterol 101 mg/dL (40-60) H TSH 0.34 uIU/ml (0.358-3.74) L ASSESSMENT/PLAN: Patient is an 78 year old female with PMH TIA x2, CAD, HTN, HLD, hypothyroidism , PTH disorder, and vertigo who presents with chest pain and diffuse tingling. She was sitting down comfortably at the onset of symptoms. Contacted by Dr. José at time of admission. Pain began in her subxiphoid region and radiated up and to the left-side of her chest. Pt took nitro x3 (5 min apart) with mild improvement. After about 20 min, she began feeling nauseous and uneasy. Pt began having tingling and "cold sensations" in her b/l feet, hands, head, and periorally. Her lower extremities also felt heavier than usual. Pt reported that she has episodes of angina about once a month, but has never experienced tingling sensations. She denies any associated paralysis, focal weaknesses, slurring of speech, or changes in vision. She also denies any SOB, diaphoresis, fevers, or chills. Upon arrival to the ED, pt's symptoms improved. She is no longer experiencing any chest pain or tingling but her lower extremities still feel heavy. Pt denies any recent illnesses and has not had any changes in her medications. Pt endorses mild stress and anxiety at home regarding her who is ill. CT head and CTA neck completed without acute changes. Low suspicion for infarct, MRI brain ordered. IF not able to be completed today, can just repeat CT head. No focal deficits and speech appears to be at baseline without deficits. Does report taking her ASA daily and advised continued medication compliance. Patient's symptoms may be in context of stress and anxiety. Continue cardiac work up. Monitor blood pressure, maintain < 160/90 for now, <140/90 as outpatient. Continue statin, monitor LDL, maintain < 100. continue synthroid, monitor hypothyroidism/TSH/T3/T4.
[2018-10-20] MEDS ORDERED: METOPROLOL TARTRATE 50 MG TABLET (FP) PO SCH (10:00)
[2018-10-20] MEDS ORDERED: ASPIRIN 81 MG CHEWABLE TABLETS PO SCH (10:00)
[2018-10-20] MEDS ORDERED: NIFEdipine E.R. 30 MG TABLET (FP) PO SCH (10:00)
[2018-10-20] MEDS ORDERED: PANTOPRAZOLE 40 MG TABLET (FP) PO SCH (10:00)
--- NOTE | 2018-10-20 14:05 | EKG ---
Test Reason : Blood Pressure : / mmHG Vent. Rate : 068 BPM Atrial Rate : 068 BPM P-R Int : 120 ms QRS Dur : 086 ms QT Int : 372 ms P-R-T Axes : -13 046 035 degrees QTc Int : 395 ms NORMAL SINUS RHYTHM INCOMPLETE RBBB WHEN COMPARED WITH ECG OF 19-OCT-2018 16:08, QRS DURATION HAS DECREASED Confirmed by AURORA VAZ MD ([id number]) on 10/20/2018 2:04:53 PM Referred By: Confirmed By:AURORA VAZ MD
--- NOTE | 2018-10-20 14:16 | CONSULT ---
Admitting History and Physical - Primary Care Physician PCP: Momo Rivera - Admission History of Present Illness: Selected Entries 10/19/18 10/19/18 10/19/18 16:12 22:30 23:00 Breakfast Supper 50% Temperature 97.6 F 97.9 F 10/20/18 10/20/18 10/20/18 01:52 05:34 10:44 Breakfast 50% Supper Temperature 98.2 F 98.0 F Laboratory Tests 10/19/18 10/20/18 17:21 05:25 WBC 4.9 3.7 L History Source: Patient Limitations to Obtaining History: No Limitations - Past Medical History Cardiovascular: Yes: CAD, HTN, Hyperlipdemia, Other (MVP) Heme/Onc: Yes: Anemia Musculoskeletal: Yes: Osteoarthritis Endocrine: Yes: Hypothyroidism - Past Surgical History Past Surgical History: Yes: Appendectomy - Smoking History Smoking history: Never smoked Have you smoked in the past 12 months: No Aproximately how many cigarettes per day: 0 - Alcohol/Substance Use Hx Alcohol Use: No History of Substance Use: reports: None - Social History ADL: Independent History of Recent Travel: No History - Admission Reason For Visit: TRANSIENT ISCHEMIC ATTACK, CHEST PAIN - Diagnostics CT Scan: Report Reviewed - General Mental Status: Alert and Oriented, Awake and Alert, Able to Follow Commands Attention: Intact Ability to Follow Directions: Excellent, Good Head/Neck Control: WFL - Hearing Hearing: Impaired, Left Ear Hearing Aide: No Speech Evaluation - Communication Primary Language: BAHRAINI Communication: Yes: Within Normal Limits Oral Expression Ability: Yes: No Impairment - Speech Production Able to Make Needs Known: Yes: WNL Intelligibility: Yes: WNL - Speech Characteristics Voice Loudness: Normal Voice Pitch: Yes: Normal Voice Phonatory-based Quality: Yes: Normal Speech Pattern: Normal Speech Clarity: < 100% Nasal Resonance: Normal Articulation: Yes: Precise - Language/Auditory Comprehension Follows: Yes: 2 Stage Simple Commands - Language/Verbal Expression Able to Respond to Simple Queries: Yes: WNL Able to Communicate Wants and Needs: Yes: WNL Functional Communication Status: Yes: WNL - Memory/Perception buttermaker continuous churn Memory: Yes: WNL Short Term Memory: Yes: WNL - Swallow Evaluation/Bedside Assessment Current Nutritional Intake: Regular, Thin Liquids Oral Secretions: Yes: WFL Dentition: Yes: Adequate Facial Symmetry at Rest: Symmetrical Facial Symmetry on Retraction: Symmetrical Against Resistance Opening: Normal Against Resistance Closing: Normal Pucker Lips: Normal Smile: Normal Lingual Movement: Normal, Symmetric Lingual Speed of Movement: Normal Lingual Movement Strgth Against Opposition: Normal Lingual Movement Characteristics: Normal Velopharyngeal Movement: Normal Laryngeal Elevation: WFL Rate of Intake: WFL Bolus Size: WFL Labial Seal: WFL Chewing: WFL Oral Prep Time: WFL A-P Transit: WFL Timing of Swallow: WF Recommendations - Speech Evaluation, Impression/Plan Impression: Sp/sw/cognition/language intact. Pt reports "swelling of vocal cords "- Will be going for sp tx at [place]. r/o LPR - Dysphagia Impressions/Plan Swallowing Skills: [facility] Dysphagia Impressions: No Impairment *Silent aspiration: cannot be R/O at bedside Recommendations: Other (GERD precautions.) - Recommendations Diet Consistency: Regular Medication Administration: Whole with water Liquids: Thin Liquids
[2018-10-20 14:43] VITALS: BP 160/82; PULSE 69; TEMP 98.3
--- NOTE | 2018-10-20 17:43 | DS ---
Physical Examination Vital Signs: Vital Signs Temperature 36.8 C 10/20/18 14:00 Pulse Rate 69 10/20/18 14:00 Respiratory Rate 20 10/20/18 14:00 Blood Pressure 160/82 10/20/18 14:00 O2 Sat by Pulse Oximetry (%) 99 10/20/18 13:00 Labs: CBC, BMP 10/20/18 05:25 10/20/18 05:25 Discharge Summary Reason For Visit: TRANSIENT ISCHEMIC ATTACK, CHEST PAIN Current Active Problems Chest pain (Acute) TIA (transient ischemic attack) (Acute) Condition: Good - Instructions Diet, Activity, Other Instructions: resume previous diet and activity Referrals: Eugene Payne MD [Primary Care Provider] - Marcus Rivera MD [Staff Physician] - Jorge Luis Kwok MD [Staff Physician] - Disposition: HOME - Home Medications Comprehensive Discharge Medication List: Ambulatory Orders Levothyroxine [Synthroid -] 75 mcg PO DAILY 04/09/18 Losartan Potassium 100 mg PO HS 04/09/18 Metoprolol Tartrate 100 mg PO DAILY 04/09/18 Nifedipine ER [Procardia XL -] 60 mg PO DAILY 04/09/18 Rosuvastatin Calcium [Crestor] 10 mg PO HS 04/09/18 Aspirin 81 mg PO DAILY 07/20/18 Lifitegrast [Xiidra] 1 each OP BID 07/20/18 Meclizine HCl 12.5 mg PO TID PRN 07/20/18 Pantoprazole Sodium 40 mg PO DAILY #30 tablet. 07/21/18
--- NOTE | 2018-10-20 17:55 | CON.CARD ---
Consult Consult Specialty:: cardiology Reason for Consultation:: r/o CVA - History of Present Illness History of Present Illness: The patient is an 78-year-old female with a past medical history significant for TIA, HTN, and hypothyroidism presents to the emergency department with left- sided chest pain, lower extremity weakness, and difficulty speaking. The patient reports she developed left-sided chest pain around 2:30 pm while she was sitting down. The patient reports the pain was associated with nausea, denies diaphoresis, or pain radiating elsewhere. About 5 minutes into the symptom presentation, she has the sensation of feeling cold all over, lower extremity weakness, and tetany to the right leg. About 10 minutes later, she was having difficulty with speech for about 30 seconds. The patient reports all the symptoms had self resolved, the patient is currently complaining of mild left-sided chest pain. At home, the patient had 3 sublingual nitro, q5 minutes, with relief. Neurologist: Dr. Rivera Awning Hanger Helper: Dr. Kwok PCP: Dr. Payne - Past Medical History Cardio/Vascular: Yes: CAD, HTN, Hyperlipdemia, Other (MVP) Musculoskeletal: Yes: Osteoarthritis Endocrine: Yes: Hypothyroidism - Past Surgical History Past Surgical History: Yes: Appendectomy - Alcohol/Substance Use Hx Alcohol Use: No History of Substance Use: reports: None - Smoking History Smoking history: Never smoked Have you smoked in the past 12 months: No Aproximately how many cigarettes per day: 0 - Social History Usual Living Arrangement: With Spouse ADL: Independent History of Recent Travel: No Home Medications - Allergies Allergies/Adverse Reactions: Allergies Allergy/AdvReac Type Severity Reaction Status Date / Time ezetimibe [From Zetia] Allergy Intermediate Rash Verified 10/19/18 16:15 hydrochlorothiazide Allergy Intermediate Rash Verified 10/19/18 16:15 Sulfa (Sulfonamide Allergy Intermediate Rash Verified 10/19/18 16:15 Antibiotics) benzocaine Allergy Unknown UNKNOWN Verified 10/19/18 16:15 FRAGRANCES Allergy Intermediate Cough Uncoded 10/19/18 16:15 - Home Medications Home Medications: Ambulatory Orders Levothyroxine [Synthroid -] 75 mcg PO DAILY 04/09/18 Losartan Potassium 100 mg PO HS 04/09/18 Metoprolol Tartrate 100 mg PO DAILY 04/09/18 Nifedipine ER [Procardia XL -] 60 mg PO DAILY 04/09/18 Rosuvastatin Calcium [Crestor] 10 mg PO HS 04/09/18 Aspirin 81 mg PO DAILY 07/20/18 Lifitegrast [Xiidra] 1 each OP BID 07/20/18 Meclizine HCl 12.5 mg PO TID PRN 07/20/18 Pantoprazole Sodium 40 mg PO DAILY #30 tablet. 07/21/18 Family Disease History - Family Disease History Family Disease History: Other: Mother (muscular dystrophy) Vital Signs: Vital Signs Temperature 98.3 F 10/20/18 14:00 Pulse Rate 69 10/20/18 14:00 Respiratory Rate 20 10/20/18 14:00 Blood Pressure 160/82 10/20/18 14:00 O2 Sat by Pulse Oximetry (%) 99 10/20/18 13:00 - Other Data Labs, Other Data: CBC, BMP 10/20/18 05:25 10/20/18 05:25 INR, PTT INR 1.10 (0.83-1.09) H 10/19/18 17:21 Troponin, BNP 10/19/18 10/19/18 17:21 22:15 Troponin I < 0.02 < 0.02 Troponin, BNP 10/19/18 10/19/18 17:21 22:15 Troponin I < 0.02 < 0.02
--- NOTE | 2018-10-20 17:55 | PN ---
Progress Note, Physician Chief Complaint: Pt for CT head; asymptomatic. History of Present Illness: The patient is an 78-year-old female with a past medical history significant for TIA, HTN, and hypothyroidism presents to the emergency department with left- sided chest pain, lower extremity weakness, and difficulty speaking. The patient reports she developed left-sided chest pain around 2:30 pm while she was sitting down. The patient reports the pain was associated with nausea, denies diaphoresis, or pain radiating elsewhere. About 5 minutes into the symptom presentation, she has the sensation of feeling cold all over, lower extremity weakness, and tetany to the right leg. About 10 minutes later, she was having difficulty with speech for about 30 seconds. The patient reports all the symptoms had self resolved, the patient is currently complaining of mild left-sided chest pain. At home, the patient had 3 sublingual nitro, q5 minutes, with relief. Neurologist: Dr. Rivera Snack Bar Cook: Dr. Kwok PCP: Dr. Payne - Current Medication List Current Medications: Active Medications Aspirin (Asa -) 81 mg PO DAILY [facility] Last Admin: 10/20/18 09:41 Dose: 81 mg Heparin Sodium (Porcine) (Heparin -) 5,000 unit SQ BID [facility] Last Admin: 10/20/18 09:40 Dose: 5,000 unit Lactated Ringer's (Lactated Ringers Solution) 1,000 ml in 1,000 mls @ 50 mls/ hr IV ASDIR [facility] Last Admin: 10/20/18 04:30 Dose: 50 mls/hr Losartan Potassium (Cozaar -) 100 mg PO HS [facility] Meclizine HCl (Antivert -) 12.5 mg PO Q8H PRN PRN Reason: VERTIGO Metoprolol Tartrate (Lopressor -) 100 mg PO DAILY [facility] Last Admin: 10/20/18 09:41 Dose: 100 mg Nifedipine (Procardia Xl -) 60 mg PO DAILY [facility] Last Admin: 10/20/18 09:41 Dose: 60 mg Non-Formulary Medication (Lifitegrast [Xiidra]) 1 each OP BID [facility] Pantoprazole Sodium (Protonix -) 40 mg PO DAILY [facility] Last Admin: 10/20/18 09:40 Dose: 40 mg Rosuvastatin Calcium (Crestor -) 10 mg PO HS [facility] Last Admin: 08/08/19 23:21 Dose: 10 mg - Objective Vital Signs: Vital Signs Temperature 98.3 F 10/20/18 14:00 Pulse Rate 69 10/20/18 14:00 Respiratory Rate 20 10/20/18 14:00 Blood Pressure 160/82 10/20/18 14:00 O2 Sat by Pulse Oximetry (%) 99 10/20/18 13:00 Labs: CBC, BMP 10/20/18 05:25 10/20/18 05:25 INR, PTT INR 1.10 (0.83-1.09) H 10/19/18 17:21 Problem List - Problems (1) Chest pain Assessment/Plan: TNI < 0.02 x 2 . STress MIBI a few months ago as outpatient: no ischemia. From cardiac perspective, if no CVA and BP is controlled, pt can be followed as an outpatient. Code(s): R07.9 - CHEST PAIN, UNSPECIFIED (2) Anxiety Code(s): F41.9 - ANXIETY DISORDER, UNSPECIFIED (3) Atypical chest pain Code(s): R07.89 - OTHER CHEST PAIN
[2018-10-20] MEDS ORDERED: LOSARTAN POTASSIUM 50 MG TABLET (FP) PO SCH (22:00)
== END 2018-10-20 18:16 | disposition home or self-care (01) ==
LOC: JER 15:54 → UNDOADMOB 19:58 → INTOOBSV 19:58 → JERBED 19:58 → J4W 22:35 → JERBED 22:35
PROVIDERS: ADMIT Internal Medicine; ATTEND Internal Medicine
PROC: 3E033NZ Introduction of Analgesics, Hypnotics, Sedatives into Peripheral Vein, Percutaneous Approach (ICD-10-PCS; principal; 2018-10-19)
PROC: 3E0337Z Introduction of Electrolytic and Water Balance Substance into Peripheral Vein, Percutaneous Approach (ICD-10-PCS; 2018-10-19)
PROC: 3E013GC Introduction of Other Therapeutic Substance into Subcutaneous Tissue, Percutaneous Approach (ICD-10-PCS; 2018-10-19)
DX: R07.89 Other chest pain (principal); R20.2 Paresthesia of skin; I25.110 Atherosclerotic heart disease of native coronary artery with unstable angina pectoris; I10 Essential (primary) hypertension; E78.5 Hyperlipidemia, unspecified; M19.90 Unspecified osteoarthritis, unspecified site; M10.9 Gout, unspecified; D64.9 Anemia, unspecified; E03.9 Hypothyroidism, unspecified; I34.1 Nonrheumatic mitral (valve) prolapse; K21.9 Gastro-esophageal reflux disease without esophagitis; E83.52 Hypercalcemia; F41.9 Anxiety disorder, unspecified; Z98.61 Coronary angioplasty status; Z79.82 Long term (current) use of aspirin; Z88.8 Allergy status to other drugs, medicaments and biological substances; Z86.73 Personal history of transient ischemic attack (TIA), and cerebral infarction without residual deficits
CPT/HCPCS: 36415; 70450-TC; 70498-TC; 71275-TC; 80053; 80061; 81003; 82465; 82550; 82553; 82607; 83718; 83721; 83735; 84100; 84439; 84443; 84478; 84484; 85025; 85610; 86593; 86850; 86900; 86901; 93005; 93010; 96361; 96372; 96374; 99284-25; G0378; J0131; J1644; J7030

== ENCOUNTER 2020-05-09 16:58 | Observation (INO) | payer OTHER ==
[2020-05-09] MEDS: SODIUM CHLORIDE 1,000 ML IV SCH (18:13)
[2020-05-09] MEDS ORDERED: ACETAMINOPHEN 1000 MG/100 ML VIAL (NON FORMULARY) IVPB ONE (18:49)
[2020-05-09 18:58] LABS: BASO % 1.3 % (0-2.0); EOS % 4.1 % (0-4.5); HEMATOCRIT 35.2 % (32.4-45.2); HEMOGLOBIN 11.7 GM/dL (10.7-15.3); MCH 30.2 pg (25.7-33.7); MCHC 33.3 g/dl (32.0-36.0); MEAN CELL VOLUME 90.7 fl (80-96); MEAN PLT VOLUME 9.9 fl (7.5-11.1); MONO % 10.8 % (3.8-10.2); NEUT % 57.8 % (42.8-82.8); PLATELET COUNT 186 K/MM3 (134-434); RBC 3.88 M/mm3 (3.60-5.2); RDW 13.7 % (11.6-15.6); WHITE BLOOD COUNT 4.6 K/mm3 (4.0-10.0)
[2020-05-09 19:01] LABS: URINE APPEARANCE CLEAR; URINE BILIRUBIN NEGATIVE (NEGATIVE); URINE COLOR YELLOW; URINE GLUCOSE (UA) NEGATIVE (NEGATIVE); URINE KETONE NEGATIVE (NEGATIVE); URINE LEUK ESTERASE NEGATIVE (NEGATIVE); URINE NITRITE NEGATIVE (NEGATIVE); URINE PROTEIN NEGATIVE (NEGATIVE); URINE UROBILINOGEN 0.2 mg/dL (0.2-1.0)
[2020-05-09 19:09] LABS: INR 1.09 (0.83-1.09); PROTHROMBIN TIME (PATIENT) 13.4 SEC (9.7-13.0)
[2020-05-09 19:12] LABS: ACTIVATED PTT 31.6 SECONDS (25.2-36.5)
[2020-05-09] MEDS ORDERED: ACETAMINOPHEN INJECTION 100 ML IVPB ONE (19:21)
[2020-05-09 19:22] LABS: CHLORIDE 106 mmol/L (98-107); POTASSIUM 4.3 mmol/L (3.5-5.1); SODIUM 139 mmol/L (136-145)
[2020-05-09 19:27] LABS: ALBUMIN 4.1 g/dl (3.4-5.0); ANION GAP 3 MMOL/L (8-16); BLOOD UREA NITROGEN 16.4 mg/dL (7-18); CALCIUM 9.5 mg/dL (8.5-10.1); CO2 29 mmol/L (21-32); GLUCOSE,RANDOM 148 mg/dL (74-106)
[2020-05-09 19:30] LABS: CHOLESTEROL 195 mg/dL (50-200); SGOT/AST 24 U/L (15-37); SGPT/ALT 24 U/L (13-61); TRIGLYCERIDES 89 mg/dL (0-150)
[2020-05-09 19:31] LABS: BILIRUBIN,TOTAL 0.8 mg/dL (0.2-1); LDL CHOLESTEROL (ONLY SJRH) 89 mg/dL (5-100); TOT PROT 7.1 g/dl (6.4-8.2)
[2020-05-09 19:32] LABS: ALK PHOS 91 U/L (45-117)
[2020-05-09 19:33] LABS: HDL CHOLESTEROL 93 mg/dL (40-60)
[2020-05-09 20:47] LABS: ERYTHROCYTE SEDIMENTATION RATE 12 mm/hr (0-30)
[2020-05-09] MEDS ORDERED: ACETAMINOPHEN 325 MG TABLET (FP) ONE (22:52)
[2020-05-09 23:23] VITALS: BMI 21.2
[2020-05-10] MEDS ORDERED: ACETAMINOPHEN 325 MG TABLET (FP) PO PRN (00:09)
[2020-05-10] MEDS: SODIUM CHLORIDE 1,000 ML IV SCH ×2 (06:42→17:38)
[2020-05-10] MEDS: LEVOTHYROXINE NA 75 MCG TABLET (FP) PO SCH ×2 (08:15→10:01)
[2020-05-10 08:57] LABS: EOS % 5.6 % (0-4.5); HEMATOCRIT 35.1 % (32.4-45.2); HEMOGLOBIN 11.8 GM/dL (10.7-15.3); LYMPH % 34.1 % (8-40); MCH 30.1 pg (25.7-33.7); MCHC 33.5 g/dl (32.0-36.0); MEAN PLT VOLUME 9.7 fl (7.5-11.1); MONO % 13.2 % (3.8-10.2); NEUT % 46.1 % (42.8-82.8); PLATELET COUNT 185 K/MM3 (134-434); RDW 13.9 % (11.6-15.6); WHITE BLOOD COUNT 4.1 K/mm3 (4.0-10.0)
[2020-05-10 09:27] LABS: POTASSIUM 4.4 mmol/L (3.5-5.1)
[2020-05-10 09:44] LABS: ALBUMIN 3.9 g/dl (3.4-5.0); BLOOD UREA NITROGEN 10.7 mg/dL (7-18); CALCIUM 9.8 mg/dL (8.5-10.1); MAGNESIUM 2.1 mg/dL (1.8-2.4)
[2020-05-10 09:46] LABS: BILIRUBIN,TOTAL 1.2 mg/dL (0.2-1); PHOSPHOROUS 3.4 mg/dL (2.5-4.9)
[2020-05-10 09:47] LABS: CREATININE 0.8 mg/dL (0.55-1.3); TOT PROT 6.7 g/dl (6.4-8.2)
[2020-05-10] MEDS ORDERED: ASPIRIN 81 MG CHEWABLE TABLETS PO SCH (10:00)
[2020-05-10] MEDS ORDERED: NIFEdipine E.R 60 MG TABLET PO SCH (10:00)
[2020-05-10] MEDS ORDERED: METOPROLOL TARTRATE 50 MG TABLET (FP) PO SCH (10:00)
[2020-05-10] MEDS ORDERED: ENOXAPARIN NA (PORCINE) 40 MG/0.4 ML DISP.SYRIN SQ SCH (10:00)
[2020-05-10] MEDS ORDERED: FAMOTIDINE 20 MG TABLET PO SCH ×2 (10:00)
[2020-05-10] MEDS ORDERED: MECLIZINE HCL 25 MG TABLET (FP) PO PRN (11:06)
[2020-05-10 14:36] VITALS: BP 105/55; PULSE 58; TEMP 98.4
[2020-05-10] MEDS ORDERED: SUMAtriptan SUCCINATE 50 MG TABLET PO PRN (15:05)
[2020-05-10] MEDS ORDERED: DIVALPROEX NA *ER* EXTEND REL 250 MG TABLET.SA PO SCH (15:15)
[2020-05-10] MEDS ORDERED: ATORVASTATIN CA 40 MG TABLET (FP) PO SCH (22:00)
[2020-05-10] MEDS ORDERED: DONEPEZIL HCL 5 MG TABLET (FP) PO SCH (22:00)
== END 2020-05-10 18:31 | disposition home or self-care (01) ==
LOC: JER 16:58 → JERBED 18:47 → INTOOBSV 18:47 → J4S 21:11
PROVIDERS: ADMIT Internal Medicine Geriatric Medicine; ATTEND Nurse Practitioner Acute Care
PROC: 3E033NZ Introduction of Analgesics, Hypnotics, Sedatives into Peripheral Vein, Percutaneous Approach (ICD-10-PCS; principal; 2020-05-09)
PROC: 3E023GC Introduction of Other Therapeutic Substance into Muscle, Percutaneous Approach (ICD-10-PCS; 2020-05-09)
DX: I25.10 Atherosclerotic heart disease of native coronary artery without angina pectoris (principal); Z86.73 Personal history of transient ischemic attack (TIA), and cerebral infarction without residual deficits; I11.9 Hypertensive heart disease without heart failure; E03.9 Hypothyroidism, unspecified; Z29.9 Encounter for prophylactic measures, unspecified; Z88.8 Allergy status to other drugs, medicaments and biological substances; Z88.2 Allergy status to sulfonamides; Z20.822 Contact with and (suspected) exposure to COVID-19; R51.9 Headache, unspecified; E78.5 Hyperlipidemia, unspecified; R42 Dizziness and giddiness
CPT/HCPCS: 36415; 70450-TC; 70496-TC; 70498-TC; 80053; 80061; 81003; 82550; 82553; 82962; 83721; 83735; 84100; 84484; 85025; 85610; 85651; 85730; 86140; 93005; 93010; 96372; 96374; 99285-25; C9803; G0378; J0131; Q9967; U0003

== ENCOUNTER 2021-05-24 20:16 | Emergency (ER) | payer OTHER ==
[2021-05-24 20:33] VITALS: BP 140/72; PULSE 77; TEMP 98.2; BMI 23.4
[2021-05-24] MEDS ORDERED: ACETAMINOPHEN 500 MG TABLET (FP) PO ONE (20:35)
[2021-05-24] MEDS ORDERED: ACETAMINOPHEN 325 MG TABLET (FP) ONE (21:03)
[2021-05-24 21:27] LABS: BASO % 1.3 % (0-2.0); EOS % 3.7 % (0-4.5); HEMATOCRIT 35.6 % (32.4-45.2); HEMOGLOBIN 11.8 GM/dL (10.7-15.3); LYMPH % 25.8 % (8-40); MCH 29.9 pg (25.7-33.7); MCHC 33.2 g/dl (32.0-36.0); MEAN CELL VOLUME 90.1 fl (80-96); MEAN PLT VOLUME 8.6 fl (7.5-11.1); MONO % 13.5 % (3.8-10.2); NEUT % 55.7 % (42.8-82.8); PLATELET COUNT 195 10^3/uL (134-434); RBC 3.96 M/mm3 (3.60-5.2); RDW 14.3 % (11.6-15.6); WHITE BLOOD COUNT 4.2 K/mm3 (4.0-10.0)
[2021-05-24 21:33] LABS: INR 1.03 (0.83-1.09); PROTHROMBIN TIME (PATIENT) 11.9 SEC (9.7-13.0)
[2021-05-24 21:35] LABS: ACTIVATED PTT 34.1 SECONDS (25.2-36.5)
[2021-05-24 21:47] LABS: ALBUMIN 4.4 g/dl (3.4-5.0); CALCIUM 9.9 mg/dL (8.5-10.1); MAGNESIUM 2.5 mg/dL (1.8-2.4)
[2021-05-24 21:48] LABS: BLOOD UREA NITROGEN 24.5 mg/dL (7-18)
[2021-05-24 21:51] LABS: CREATININE 1.4 mg/dL (0.55-1.3)
[2021-05-24 21:52] LABS: BILIRUBIN,TOTAL 0.9 mg/dL (0.2-1); TOT PROT 7.1 g/dl (6.4-8.2)
== END 2021-05-24 23:47 | disposition home or self-care (01) ==
LOC: JER 20:16
DX: R07.9 Chest pain, unspecified (principal)
CPT/HCPCS: 36415; 71045-TC-FY; 80053; 82550; 82553; 83735; 84484; 85025; 85610; 85730; 93005; 93010; 99285-25

== ENCOUNTER 2021-05-29 16:01 | Inpatient (IN) | payer OTHER ==
[2021-05-29] MEDS ORDERED: ACETAMINOPHEN 1000 MG/100 ML BAG IVPB ONE (16:33)
[2021-05-29] MEDS ORDERED: ACETAMINOPHEN INJECTION 100 ML IVPB ONE (16:52)
[2021-05-29] MEDS ORDERED: ASPIRIN 81 MG CHEWABLE TABLETS ONE (16:52)
[2021-05-29] MEDS ORDERED: ASPIRIN 81 MG CHEWABLE TABLETS PO ONE (17:17)
[2021-05-29 17:56] LABS: BASO % 0.8 % (0-2.0); EOS % 2.9 % (0-4.5); HEMATOCRIT 37.1 % (32.4-45.2); HEMOGLOBIN 12.4 GM/dL (10.7-15.3); LYMPH % 21.6 % (8-40); MCH 30.2 pg (25.7-33.7); MCHC 33.4 g/dl (32.0-36.0); MEAN CELL VOLUME 90.6 fl (80-96); MEAN PLT VOLUME 8.7 fl (7.5-11.1); MONO % 8.4 % (3.8-10.2); NEUT % 66.3 % (42.8-82.8); PLATELET COUNT 200 10^3/uL (134-434); RBC 4.09 M/mm3 (3.60-5.2); RDW 13.8 % (11.6-15.6); WHITE BLOOD COUNT 4.6 K/mm3 (4.0-10.0)
[2021-05-29 19:17] LABS: ALBUMIN 4.2 g/dl (3.4-5.0); BILIRUBIN,TOTAL 1.1 mg/dL (0.2-1); BLOOD UREA NITROGEN 22.3 mg/dL (7-18); CALCIUM 10.1 mg/dL (8.5-10.1); TOT PROT 7.5 g/dl (6.4-8.2)
[2021-05-30 02:38] VITALS: BMI 20.3
[2021-05-30] MEDS: LEVOTHYROXINE NA 75 MCG TABLET (FP) PO SCH (06:46)
[2021-05-30 07:46] LABS: BASO % 0.9 % (0-2.0); EOS % 5.6 % (0-4.5); HEMATOCRIT 36.6 % (32.4-45.2); HEMOGLOBIN 12.1 GM/dL (10.7-15.3); LYMPH % 31.3 % (8-40); MCH 29.9 pg (25.7-33.7); MCHC 33.2 g/dl (32.0-36.0); MEAN PLT VOLUME 8.8 fl (7.5-11.1); MONO % 12.8 % (3.8-10.2); NEUT % 49.4 % (42.8-82.8); PLATELET COUNT 205 10^3/uL (134-434); RBC 4.07 M/mm3 (3.60-5.2); RDW 14.1 % (11.6-15.6)
[2021-05-30 08:03] LABS: CALCIUM 9.8 mg/dL (8.5-10.1)
[2021-05-30 08:04] LABS: ALBUMIN 4.1 g/dl (3.4-5.0); BLOOD UREA NITROGEN 26.2 mg/dL (7-18); MAGNESIUM 2.5 mg/dL (1.8-2.4)
[2021-05-30 08:07] LABS: CREATININE 1.1 mg/dL (0.55-1.3); PHOSPHOROUS 4.2 mg/dL (2.5-4.9)
[2021-05-30 08:08] LABS: BILIRUBIN,TOTAL 1.2 mg/dL (0.2-1)
[2021-05-30 08:09] LABS: TOT PROT 6.8 g/dl (6.4-8.2)
[2021-05-30] MEDS ORDERED: MECLIZINE HCL 25 MG TABLET (FP) PO PRN (08:25)
[2021-05-30] MEDS ORDERED: PATIENT'S OWN MEDICATION (NON-FORMULARY) (Metoprolol Tartrate [Metoprolol Tartrate] 100 MG PO SCH (10:00)
[2021-05-30] MEDS ORDERED: ENOXAPARIN NA (PORCINE) 40 MG/0.4 ML DISP.SYRIN SQ SCH (10:00)
[2021-05-30] MEDS: ASPIRIN 81 MG CHEWABLE TABLETS PO SCH (10:47)
[2021-05-30] MEDS: FAMOTIDINE 20 MG TABLET PO SCH ×2 (10:47→21:30)
[2021-05-30] MEDS: NIFEdipine E.R 60 MG TABLET PO SCH (10:47)
[2021-05-30] MEDS ORDERED: HEPARIN NA (PORCINE) 5,000 UNITS/ML 1ML VIAL IVPUSH PRN ×2 (14:39)
[2021-05-30] MEDS ORDERED: HEPARIN NA (PORCINE) 5,000 UNITS/ML 1ML VIAL IVPUSH ONE (14:39)
[2021-05-30] MEDS ORDERED: NITROGLYCERIN SUBLINGUAL 1/150 0.4 MG TAB SL PRN (14:44)
[2021-05-30] MEDS ORDERED: HEPARIN - 25,000 UNIT in SODIUM CHLORIDE 495 ML IV SCH (14:45)
[2021-05-30] MEDS ORDERED: CLOPIDOGREL BISULFATE 300 MG TABLET PO ONE (15:00)
[2021-05-30] MEDS ORDERED: ASPIRIN 81 MG CHEWABLE TABLETS PO ONE (16:34)
[2021-05-30] MEDS: DONEPEZIL HCL 5 MG TABLET (FP) PO SCH (21:30)
[2021-05-30] MEDS: ROSUVASTATIN CA 10 MG TABLET PO SCH (21:30)
[2021-05-30] MEDS ORDERED: ROSUVASTATIN CA 10 MG TABLET PO SCH (22:00)
[2021-05-30] MEDS ORDERED: LOSARTAN POTASSIUM 50 MG TABLET PO SCH (22:00)
[2021-05-31 05:11] LABS: HEMATOCRIT 32.9 % (32.4-45.2); HEMOGLOBIN 10.9 GM/dL (10.7-15.3); MCHC 33.2 g/dl (32.0-36.0); MEAN CELL VOLUME 90.2 fl (80-96); PLATELET COUNT 174 10^3/uL (134-434); RBC 3.65 M/mm3 (3.60-5.2); RDW 13.9 % (11.6-15.6); WHITE BLOOD COUNT 5.4 K/mm3 (4.0-10.0)
[2021-05-31] MEDS: LEVOTHYROXINE NA 75 MCG TABLET (FP) PO SCH (06:23)
[2021-05-31 07:24] LABS: CALCIUM 9.4 mg/dL (8.5-10.1)
[2021-05-31 07:25] LABS: BLOOD UREA NITROGEN 24.7 mg/dL (7-18)
[2021-05-31 07:39] LABS: HEMATOCRIT 36.6 % (32.4-45.2); HEMOGLOBIN 12.1 GM/dL (10.7-15.3); MCH 29.9 pg (25.7-33.7); MEAN CELL VOLUME 90.7 fl (80-96); MEAN PLT VOLUME 8.8 fl (7.5-11.1); PLATELET COUNT 185 10^3/uL (134-434); RBC 4.04 M/mm3 (3.60-5.2); WHITE BLOOD COUNT 5.7 K/mm3 (4.0-10.0)
[2021-05-31] MEDS: ASPIRIN 81 MG CHEWABLE TABLETS PO SCH (10:34)
[2021-05-31] MEDS: CLOPIDOGREL BISULFATE 75 MG TABLET (FP) PO SCH (10:34)
[2021-05-31] MEDS: FAMOTIDINE 20 MG TABLET PO SCH ×2 (10:34→21:21)
[2021-05-31] MEDS: NIFEdipine E.R 60 MG TABLET PO SCH (10:41)
[2021-05-31] MEDS: DONEPEZIL HCL 5 MG TABLET (FP) PO SCH (21:21)
[2021-05-31] MEDS: ROSUVASTATIN CA 10 MG TABLET PO SCH (21:21)
[2021-06-01] MEDS: LEVOTHYROXINE NA 75 MCG TABLET (FP) PO SCH (06:12)
[2021-06-01 07:26] LABS: HEMATOCRIT 37.2 % (32.4-45.2); HEMOGLOBIN 12.2 GM/dL (10.7-15.3); MCH 29.6 pg (25.7-33.7); MCHC 32.8 g/dl (32.0-36.0); MEAN CELL VOLUME 90.3 fl (80-96); MEAN PLT VOLUME 8.7 fl (7.5-11.1); PLATELET COUNT 200 10^3/uL (134-434); RBC 4.12 M/mm3 (3.60-5.2); RDW 13.6 % (11.6-15.6); WHITE BLOOD COUNT 4.1 K/mm3 (4.0-10.0)
[2021-06-01 07:47] LABS: CALCIUM 9.6 mg/dL (8.5-10.1)
[2021-06-01 07:48] LABS: BLOOD UREA NITROGEN 26.9 mg/dL (7-18)
[2021-06-01] MEDS: NIFEdipine E.R 60 MG TABLET PO SCH ×2 (08:50→10:07)
[2021-06-01] MEDS ORDERED: REGADENOSON 0.4 MG/5 ML PRE-FILLED SYRINGE IVPUSH ONE ×2 (10:06→10:45)
[2021-06-01] MEDS: ASPIRIN 81 MG CHEWABLE TABLETS PO SCH ×2 (10:07→15:09)
[2021-06-01] MEDS: FAMOTIDINE 20 MG TABLET PO SCH ×2 (10:07→15:09)
[2021-06-01] MEDS: CLOPIDOGREL BISULFATE 75 MG TABLET (FP) PO SCH ×2 (10:07→15:09)
[2021-06-01] MEDS ORDERED: MELATONIN 5 MG TABLETS PO PRN (11:43)
[2021-06-01] MEDS ORDERED: ACETAMINOPHEN 325 MG TABLET (FP) PO PRN (11:44)
[2021-06-01] MEDS ORDERED: AMINOPHYLLINE 250 MG/10 ML VIAL ONE (12:11)
[2021-06-01] MEDS ORDERED: AMINOPHYLLINE 250 MG/10 ML VIAL IVPUSH ONE (12:30)
[2021-06-01 15:46] VITALS: BP 106/61; PULSE 75; TEMP 98.2
== END 2021-06-01 18:45 | disposition home or self-care (01) | DRG 303 ==
LOC: JER 16:01 → JERBED 17:41 → OBSVTOIN 05-30 01:03 → J4W 05-30 01:54
PROVIDERS: ADMIT Hospitalist; ATTEND Internal Medicine
DX: I25.110 Atherosclerotic heart disease of native coronary artery with unstable angina pectoris (principal); I10 Essential (primary) hypertension; E03.9 Hypothyroidism, unspecified; K21.9 Gastro-esophageal reflux disease without esophagitis; E78.5 Hyperlipidemia, unspecified; Z86.73 Personal history of transient ischemic attack (TIA), and cerebral infarction without residual deficits; D64.9 Anemia, unspecified; R55 Syncope and collapse; I34.0 Nonrheumatic mitral (valve) insufficiency; F03.90 Unspecified dementia, unspecified severity, without behavioral disturbance, psychotic disturbance, mood disturbance, and anxiety; R42 Dizziness and giddiness; F41.9 Anxiety disorder, unspecified
CPT/HCPCS: 36415; 70450-TC; 71046-TC-FY; 78452-TC; 80048; 80053; 80061; 82962; 83036; 83735; 84100; 84484; 85025; 85027; 85730; 93005; 93010; 93017; 97116-GP; 97162-GP; 99285-25; A9502; C9803-CS; G0378; J1644; J2785; U0003; U0005

== ENCOUNTER 2021-09-25 04:09 | Day surgery (SDC) | payer OTHER ==
[2021-09-23 14:27] VITALS: BMI 21.2
[2021-09-25] MEDS ORDERED: TRIAMCINOLONE ACET 40MG/1ML VIAL ONE (07:17)
[2021-09-25] MEDS ORDERED: BUPIVACAINE HCL/PF 0.5% (5MG/ML) 10 ML VIAL ONE (07:18)
[2021-09-25] MEDS ORDERED: LIDOCAINE HCL/PF 1% SDV 5ML VIAL ONE (07:18)
[2021-09-25] MEDS ORDERED: LIDOCAINE 1% P/F 10 MG/ML VIAL INF ONE (11:19)
[2021-09-25] MEDS ORDERED: TRIAMCINOLONE ACET 40MG/1ML VIAL IM ONE (11:20)
[2021-09-25] MEDS ORDERED: BUPIVACAINE HCL/PF 0.5% (5MG/ML) 10 ML VIAL IJ ONE (11:20)
[2021-09-25 15:08] VITALS: BP 130/60; PULSE 64; TEMP 98
== END 2021-09-25 12:10 | disposition home or self-care (01) ==
LOC: JASU-SURG 04:09
PROVIDERS: ATTEND Pain Medicine Pain Medicine
PROC: 3E0U3BZ Introduction of Anesthetic Agent into Joints, Percutaneous Approach (ICD-10-PCS; 2021-09-25)
PROC: 3E0U33Z Introduction of Anti-inflammatory into Joints, Percutaneous Approach (ICD-10-PCS; principal; 2021-09-25 09:45)
DX: M53.3 Sacrococcygeal disorders, not elsewhere classified (principal)
CPT/HCPCS: 76000-TC-FY; C9803-CS; U0003; U0005

== ENCOUNTER 2021-11-20 04:14 | Day surgery (SDC) | payer OTHER ==
[2021-11-18 11:19] VITALS: BMI 20.8
[2021-11-20] MEDS ORDERED: LIDOCAINE HCL/PF 1% SDV 5ML VIAL ONE (07:09)
[2021-11-20] MEDS ORDERED: DEXAMETHASONE SOD PHOSPHATE 10 MG/1 ML VIAL ONE (07:09)
[2021-11-20] MEDS ORDERED: LIDOCAINE HCL 1% PRESERVATIVE FREE - 30ML VIAL IJ ONE (09:43)
[2021-11-20] MEDS ORDERED: DEXAMETHASONE SOD PHOSPHATE 10 MG/1 ML VIAL IVPUSH ONE (09:43)
[2021-11-20] MEDS ORDERED: IOHEXOL 180 MG/1 ML ML IJ ONE (09:46)
[2021-11-20] MEDS ORDERED: LIDOCAINE 1% P/F 10 MG/ML VIAL INF ONE (09:47)
[2021-11-20 10:16] VITALS: RESP 18
[2021-11-20 10:40] VITALS: BP 142/71; PULSE 77; TEMP 97.1
== END 2021-11-20 11:00 | disposition home or self-care (01) ==
LOC: JASU-SURG 04:14
PROVIDERS: ATTEND Pain Medicine Pain Medicine
PROC: 3E0R33Z Introduction of Anti-inflammatory into Spinal Canal, Percutaneous Approach (ICD-10-PCS; 2021-11-20)
PROC: B01BYZZ Fluoroscopy of Spinal Cord using Other Contrast (ICD-10-PCS; 2021-11-20)
PROC: 3E0R3BZ Introduction of Anesthetic Agent into Spinal Canal, Percutaneous Approach (ICD-10-PCS; principal; 2021-11-20 08:45)
DX: M54.16 Radiculopathy, lumbar region (principal); I10 Essential (primary) hypertension
CPT/HCPCS: 76000-TC-FY; J1100

== ENCOUNTER 2021-12-07 12:25 | Emergency (ER) | payer OTHER ==
[2021-12-07 12:30] VITALS: BP 130/80; PULSE 90; RESP 18; TEMP 97; BMI 23.8
[2021-12-07] MEDS ORDERED: ACETAMINOPHEN 325 MG TABLET (FP) PO ONE (13:12)
[2021-12-07] MEDS ORDERED: ACETAMINOPHEN 325 MG TABLET (FP) ONE (13:19)
== END 2021-12-07 15:46 | disposition home or self-care (01) ==
LOC: JERFT 12:25
DX: M25.511 Pain in right shoulder (principal); W01.0XXA Fall on same level from slipping, tripping and stumbling without subsequent striking against object, initial encounter
CPT/HCPCS: 70450-TC; 73030-TC-RT-FY; 73502-TC-RT-FY; 99285-25

== ENCOUNTER 2021-12-13 08:55 | Observation (INO) | payer OTHER ==
[2021-12-13 09:13] VITALS: BMI 25.6
[2021-12-13] MEDS ORDERED: SODIUM CHLORIDE 0.9% 500 ML INFUS.BAG IV ONE (09:42)
[2021-12-13] MEDS ORDERED: ACETAMINOPHEN 1000 MG/100 ML BAG IVPB ONE (09:42)
[2021-12-13] MEDS ORDERED: ACETAMINOPHEN INJECTION 100 ML IVPB ONE (10:11)
[2021-12-13 10:24] LABS: BASO % 0.8 % (0-2.0); EOS % 1.6 % (0-4.5); HEMATOCRIT 31.9 % (32.4-45.2); HEMOGLOBIN 10.7 GM/dL (10.7-15.3); LYMPH % 14.1 % (8-40); MCH 31.1 pg (25.7-33.7); MCHC 33.6 g/dl (32.0-36.0); MEAN CELL VOLUME 92.5 fl (80-96); MEAN PLT VOLUME 8.1 fl (7.5-11.1); MONO % 13.8 % (3.8-10.2); NEUT % 69.7 % (42.8-82.8); PLATELET COUNT 196 10^3/uL (134-434); RBC 3.45 M/mm3 (3.60-5.2); RDW 14.2 % (11.6-15.6); WHITE BLOOD COUNT 5.3 K/mm3 (4.0-10.0)
[2021-12-13 10:32] LABS: INR 1.06 (0.83-1.09); PROTHROMBIN TIME (PATIENT) 12.2 SEC (9.7-13.0)
[2021-12-13 10:34] LABS: ACTIVATED PTT 28.6 SECONDS (25.2-36.5)
[2021-12-13 11:00] LABS: CALCIUM 9.7 mg/dL (8.5-10.1)
[2021-12-13 11:01] LABS: ALBUMIN 3.6 g/dl (3.4-5.0); BLOOD UREA NITROGEN 24.2 mg/dL (7-18)
[2021-12-13 11:05] LABS: BILIRUBIN,TOTAL 0.8 mg/dL (0.2-1); TOT PROT 6.2 g/dl (6.4-8.2)
[2021-12-13 11:08] LABS: MAGNESIUM 2.2 mg/dL (1.8-2.4)
[2021-12-13 11:27] LABS: PH,URINE 6.5 (5.0-8.0); URINE APPEARANCE CLEAR; URINE BILIRUBIN NEGATIVE (NEGATIVE); URINE COLOR YELLOW; URINE GLUCOSE (UA) NEGATIVE (NEGATIVE); URINE KETONE NEGATIVE (NEGATIVE); URINE LEUK ESTERASE NEGATIVE (NEGATIVE); URINE NITRITE NEGATIVE (NEGATIVE); URINE PROTEIN NEGATIVE (NEGATIVE); URINE UROBILINOGEN 0.2 mg/dL (0.2-1.0)
[2021-12-13 12:31] LABS: N-TERMINAL BNP 421.5 pg/ml (5-450)
[2021-12-13] MEDS ORDERED: GABAPENTIN 300 MG CAPSULE PO ONE (12:31)
[2021-12-13] MEDS ORDERED: GABAPENTIN 300 MG CAPSULE ONE (12:41)
[2021-12-13] MEDS ORDERED: IBUPROFEN 600 MG TABLET (FP) PO PRN (14:00)
[2021-12-13] MEDS ORDERED: NIFEdipine E.R 60 MG TABLET PO SCH (14:00)
[2021-12-13] MEDS ORDERED: ASPIRIN 325 MG ENTERIC COATED TABLET (FP) PO ONE (16:02)
[2021-12-13] MEDS ORDERED: NIFEdipine E.R. 30 MG TABLET PO SCH (16:07)
[2021-12-13] MEDS ORDERED: ASPIRIN COATED 81 MG TABLET.EC ONE (16:20)
[2021-12-13] MEDS: GABAPENTIN 300 MG CAPSULE PO SCH (21:19)
[2021-12-13] MEDS ORDERED: LOSARTAN POTASSIUM 25 MG TABLET PO SCH (22:00)
[2021-12-13] MEDS ORDERED: ROSUVASTATIN CA 20 MG TABLET PO SCH (22:00)
[2021-12-13] MEDS ORDERED: LOSARTAN POTASSIUM 50 MG TABLET PO SCH (22:00)
[2021-12-13] MEDS ORDERED: FAMOTIDINE 20 MG TABLET PO SCH ×2 (22:00)
[2021-12-13] MEDS ORDERED: FAMOTIDINE 10 MG TABLET PO SCH (22:00)
[2021-12-14] MEDS: ACETAMINOPHEN 325 MG TABLET (FP) PO PRN ×2 (01:30→08:12)
[2021-12-14] MEDS ORDERED: ACETAMINOPHEN 1000 MG/100 ML BAG IVPB ONE (01:36)
[2021-12-14] MEDS ORDERED: MELATONIN 5 MG TABLETS PO PRN (01:36)
[2021-12-14] MEDS: GABAPENTIN 300 MG CAPSULE PO SCH ×2 (06:19→13:28)
[2021-12-14] MEDS ORDERED: LEVOTHYROXINE NA 75 MCG TABLET (FP) PO SCH (07:00)
[2021-12-14] MEDS ORDERED: MECLIZINE HCL 12.5 MG TABLET PO ONE (07:10)
[2021-12-14] MEDS ORDERED: ACETAMINOPHEN 325 MG TABLET (FP) PO PRN (08:28)
[2021-12-14] MEDS ORDERED: ASPIRIN 81 MG CHEWABLE TABLETS PO SCH (10:00)
[2021-12-14] MEDS ORDERED: ENOXAPARIN NA (PORCINE) 40 MG/0.4 ML DISP.SYRIN SQ SCH (10:00)
[2021-12-14 18:13] VITALS: BP 141/78; PULSE 85; RESP 17; TEMP 97.8
== END 2021-12-14 18:54 | disposition home or self-care (01) ==
LOC: JER 08:55 → JERBED 12:23 → J4S 20:40
PROVIDERS: ADMIT Internal Medicine; ATTEND Internal Medicine
PROC: 3E033NZ Introduction of Analgesics, Hypnotics, Sedatives into Peripheral Vein, Percutaneous Approach (ICD-10-PCS; principal; 2021-12-13)
PROC: 3E023GC Introduction of Other Therapeutic Substance into Muscle, Percutaneous Approach (ICD-10-PCS; 2021-12-13)
PROC: 3E0337Z Introduction of Electrolytic and Water Balance Substance into Peripheral Vein, Percutaneous Approach (ICD-10-PCS; 2021-12-13)
DX: I25.10 Atherosclerotic heart disease of native coronary artery without angina pectoris (principal); I11.9 Hypertensive heart disease without heart failure; I34.1 Nonrheumatic mitral (valve) prolapse; R07.9 Chest pain, unspecified; M48.00 Spinal stenosis, site unspecified; E78.5 Hyperlipidemia, unspecified; K21.9 Gastro-esophageal reflux disease without esophagitis; M19.90 Unspecified osteoarthritis, unspecified site; Z86.73 Personal history of transient ischemic attack (TIA), and cerebral infarction without residual deficits; Z88.2 Allergy status to sulfonamides; Z88.8 Allergy status to other drugs, medicaments and biological substances
CPT/HCPCS: 0241U-QW; 36415; 71045-TC-FY; 80053; 81003; 83735; 83880; 84443; 84484; 85025; 85610; 85730; 87086; 93005; 93010; 96361; 96372; 96374; 96376; 97116-GP; 97161-GP; 99285-25; G0378

== ENCOUNTER 2021-12-18 04:16 | Day surgery (SDC) | payer OTHER ==
[2021-12-16 16:33] VITALS: BMI 20.8
[~2021-12-18 04:16] MED LIST: LIDOCAINE 1% P/F 10 MG/ML VIAL PNB ONE; LIDOCAINE HCL/PF 2% SDV 5ML VIAL PNB ONE
[2021-12-18 06:36] VITALS: RESP 20
[2021-12-18] MEDS ORDERED: LIDOCAINE HCL/PF 1% SDV 5ML VIAL ONE (07:30)
[2021-12-18] MEDS ORDERED: LIDOCAINE 1% P/F 10 MG/ML VIAL PNB ONE (08:34)
[2021-12-18 09:21] VITALS: BP 130/66; PULSE 66; TEMP 97.8
== END 2021-12-18 10:28 | disposition home or self-care (01) ==
LOC: JASU-SURG 04:16
PROVIDERS: ATTEND Pain Medicine Pain Medicine
PROC: 01HY3MZ Insertion of Neurostimulator Lead into Peripheral Nerve, Percutaneous Approach (ICD-10-PCS; principal; 2021-12-18 08:03)
DX: G89.4 Chronic pain syndrome (principal); M25.561 Pain in right knee
CPT/HCPCS: 64555; C1897; C1778

== ENCOUNTER 2022-04-02 04:02 | Day surgery (SDC) | payer OTHER ==
[2022-03-26 14:49] VITALS: BMI 20.8
[~2022-04-02 04:02] MED LIST changes: +LIDOCAINE 1% P/F 10 MG/ML VIAL INF ONE; -LIDOCAINE 1% P/F 10 MG/ML VIAL PNB ONE; -LIDOCAINE HCL/PF 2% SDV 5ML VIAL PNB ONE
[2022-04-02] MEDS ORDERED: LIDOCAINE HCL/PF 1% SDV 5ML VIAL ONE (07:16)
[2022-04-02] MEDS ORDERED: LIDOCAINE 1% P/F 10 MG/ML VIAL INF ONE (08:40)
[2022-04-02 09:59] VITALS: RESP 16; TEMP 97.2
[2022-04-02 10:35] VITALS: BP 130/60; PULSE 60
== END 2022-04-02 10:45 | disposition home or self-care (01) ==
LOC: JASU-SURG 04:02
PROVIDERS: ATTEND Pain Medicine Pain Medicine
PROC: 01HY0MZ Insertion of Neurostimulator Lead into Peripheral Nerve, Open Approach (ICD-10-PCS; principal; 2022-04-02 08:00)
DX: G89.4 Chronic pain syndrome (principal); M54.50 Low back pain, unspecified
CPT/HCPCS: 64555; C1778

== ENCOUNTER → 2022-06-18 | Day surgery (SDC) | payer OTHER ==
[2022-06-16 15:02] VITALS: BMI 20.8
[~2022-06-18] MED LIST changes: +ACETAMINOPHEN 500 MG TABLET (FP) PO PRN; +BUPIVACAINE HCL/PF 0.5% (5 MG/ML) 30 ML VIAL IJ ONE; +BUPIVACAINE HCL/PF 0.5% (5MG/ML) 10 ML VIAL ONE; +IOHEXOL 180 MG/1 ML ML IJ ONE; +LIDOCAINE HCL/PF 1% SDV 5ML VIAL ONE; +TRIAMCINOLONE ACET 40MG/1ML VIAL IM ONE; +TRIAMCINOLONE ACET 40MG/1ML VIAL ONE
[2022-06-18 13:52] VITALS: BP 139/67; PULSE 54; RESP 18; TEMP 96.9
== END | disposition home or self-care (01) ==
LOC: JASU-SURG 04:06
PROVIDERS: ATTEND Pain Medicine Pain Medicine
PROC: 3E0U3BZ Introduction of Anesthetic Agent into Joints, Percutaneous Approach (ICD-10-PCS; 2022-06-18)
PROC: 3E0U33Z Introduction of Anti-inflammatory into Joints, Percutaneous Approach (ICD-10-PCS; principal; 2022-06-18 14:15)
DX: M53.3 Sacrococcygeal disorders, not elsewhere classified (principal)
CPT/HCPCS: 76000-TC-FY

== ENCOUNTER 2023-04-19 04:12 | Day surgery (SDC) | payer OTHER ==
[2023-04-18 13:56] VITALS: BMI 22.6
[2023-04-19] MEDS ORDERED: LIDOCAINE HCL/PF 1% SDV 5ML VIAL ONE (07:29)
[2023-04-19] MEDS ORDERED: ACETAMINOPHEN 500 MG TABLET (FP) PO PRN (08:31)
[2023-04-19 09:22] VITALS: RESP 20
[2023-04-19] MEDS ORDERED: MIDAZOLAM HCL 2 MG/2 ML SINGLE DOSE VIAL ONE (10:32)
[2023-04-19] MEDS: LIDOCAINE HCL 1% PRESERVATIVE FREE - 30ML VIAL IJ ONE ×2 (11:12→11:28)
[2023-04-19] MEDS: LIDOCAINE HCL/PF 2% SDV 5ML VIAL INF ONE (11:15)
[2023-04-19 12:45] VITALS: TEMP 98.1
[2023-04-19 13:40] VITALS: BP 120/71; PULSE 60
== END 2023-04-19 14:20 | disposition home or self-care (01) ==
LOC: JASU-SURG 04:12
PROVIDERS: ATTEND Pain Medicine Pain Medicine
PROC: 00HU3MZ Insertion of Neurostimulator Lead into Spinal Canal, Percutaneous Approach (ICD-10-PCS; principal; 2023-04-19 11:00)
DX: M96.1 Postlaminectomy syndrome, not elsewhere classified (principal)
CPT/HCPCS: 63650; C1897; 76000-TC-FY; C1889

== ENCOUNTER 2023-07-26 04:43 | Day surgery (SDC) | payer OTHER ==
[2023-06-27 11:57] VITALS: BMI 23.4
[2023-07-26 10:54] VITALS: TEMP 97.7
[2023-07-26 10:55] VITALS: RESP 18
[2023-07-26 11:16] VITALS: PULSE 74
[2023-07-26 11:50] VITALS: BP 112/90
== END 2023-07-26 11:50 | disposition home or self-care (01) ==
LOC: JASU-ENDO 04:43
PROVIDERS: ATTEND Internal Medicine Gastroenterology
PROC: 0DJD8ZZ Inspection of Lower Intestinal Tract, Via Natural or Artificial Opening Endoscopic (ICD-10-PCS; principal; 2023-07-26 10:00)
DX: Z12.11 Encounter for screening for malignant neoplasm of colon (principal); K64.8 Other hemorrhoids

== ENCOUNTER 2024-04-17 07:44 | Observation (INO) | payer OTHER ==
[2024-04-17 08:20] VITALS: BMI 21.5
[2024-04-17] MEDS ORDERED: FAMOTIDINE 20 MG/50 ML IVPB 20 MG/50 ML MG IVPB ONE ×2 (08:31→08:57)
[2024-04-17] MEDS ORDERED: ACETAMINOPHEN INJECTION 100 ML ONE ×2 (08:31→08:57)
[2024-04-17] MEDS ORDERED: MAG HYDROX/AL HYDROX/SIMETH 30 ML UNIT-DOSE CUP ONE (08:31)
[2024-04-17] MEDS: MAG HYDROX/AL HYDROX/SIMETH 30 ML UNIT-DOSE CUP PO ONE (08:40)
[2024-04-17] MEDS: ACETAMINOPHEN 1000 MG/100 ML BAG IVPB ONE (09:00)
[2024-04-17] MEDS: FAMOTIDINE 20 MG/50 ML IVPB 20 MG/50 ML MG IVPB ONE (09:05)
[2024-04-17 09:09] LABS: BASO % 1.2 % (0-2.0); EOS % 8.4 % (0-4.5); HEMATOCRIT 36.5 % (32.4-45.2); HEMOGLOBIN 11.6 GM/dL (10.7-15.3); LYMPH % 20.4 % (8-40); MCH 28.6 pg (25.7-33.7); MCHC 31.8 g/dl (32.0-36.0); MEAN CELL VOLUME 89.9 fl (80-96); MEAN PLT VOLUME 8.2 fl (7.5-11.1); MONO % 12.3 % (3.8-10.2); NEUT % 57.7 % (42.8-82.8); PLATELET COUNT 161 10^3/uL (134-434); RBC 4.06 M/mm3 (3.60-5.2); RDW 14.2 % (11.6-15.6); WHITE BLOOD COUNT 4.2 K/mm3 (4.0-10.0)
[2024-04-17 09:17] LABS: INR 1.11 (0.83-1.09); PROTHROMBIN TIME (PATIENT) 12.1 SEC (9.7-13.0)
[2024-04-17 09:19] LABS: ACTIVATED PTT 33.7 SECONDS (25.2-36.5)
[2024-04-17 09:27] LABS: POTASSIUM 4.1 mmol/L (3.5-5.1)
[2024-04-17 09:29] LABS: CALCIUM 10.3 mg/dL (8.5-10.1)
[2024-04-17 09:34] LABS: TOT PROT 6.9 g/dl (6.4-8.2)
[2024-04-17 09:35] LABS: CREATININE 1.1 mg/dL (0.55-1.3)
[2024-04-17 09:37] LABS: BILIRUBIN,TOTAL 1.4 mg/dL (0.2-1); N-TERMINAL BNP 1115.5 pg/ml (5-450)
[2024-04-17] MEDS: SODIUM CHLORIDE 0.9% 500 ML INFUS.BAG IV ONE (13:30)
[2024-04-17] MEDS ORDERED: ASPIRIN 81 MG CHEWABLE TABLETS ONE (15:23)
[2024-04-17] MEDS ORDERED: LEVOTHYROXINE NA 75 MCG TABLET (FP) ONE (15:23)
[2024-04-17] MEDS ORDERED: GABAPENTIN 300 MG CAPSULE ONE (15:23)
[2024-04-17] MEDS ORDERED: LOSARTAN POTASSIUM 50 MG TABLET ONE (15:23)
[2024-04-17] MEDS ORDERED: ESCITALOPRAM OXALATE 10 MG TABLET ONE (15:23)
[2024-04-17] MEDS ORDERED: NIFEdipine E.R 60 MG TABLET PO ONE (15:24)
[2024-04-17] MEDS ORDERED: ENOXAPARIN NA (PORCINE) 40 MG/0.4 ML DISP.SYRIN SQ ONE (15:24)
[2024-04-17] MEDS: ASPIRIN COATED 81 MG TABLET.EC PO SCH (15:45)
[2024-04-17] MEDS: NIFEdipine E.R 60 MG TABLET PO SCH (15:45)
[2024-04-17] MEDS: LEVOTHYROXINE NA 75 MCG TABLET (FP) PO SCH (15:45)
[2024-04-17] MEDS: LOSARTAN POTASSIUM 50 MG TABLET PO SCH (15:45)
[2024-04-17] MEDS: ESCITALOPRAM OXALATE 10 MG TABLET PO SCH (15:45)
[2024-04-17] MEDS: GABAPENTIN 300 MG CAPSULE PO SCH (15:45)
[2024-04-17] MEDS: ENOXAPARIN NA (PORCINE) 40 MG/0.4 ML DISP.SYRIN SQ SCH (15:45)
[2024-04-17] MEDS ORDERED: FUROSEMIDE 40 MG/4 ML INJECTABLE VIAL ONE (17:35)
[2024-04-17] MEDS: FUROSEMIDE 40 MG/4 ML INJECTABLE VIAL IVPUSH SCH (17:40)
[2024-04-17] MEDS: DONEPEZIL HCL 10 MG TABLET (FP) PO SCH (22:57)
[2024-04-17] MEDS: ROSUVASTATIN CA 20 MG TABLET PO SCH (22:57)
[2024-04-17] MEDS: FAMOTIDINE 20 MG TABLET PO SCH (22:57)
[2024-04-18] MEDS: ACETAMINOPHEN 325 MG TABLET (FP) PO PRN (05:09)
[2024-04-18 07:01] VITALS: RESP 18
[2024-04-18 08:36] LABS: POTASSIUM 3.8 mmol/L (3.5-5.1)
[2024-04-18 08:46] LABS: HEMATOCRIT 35.4 % (32.4-45.2); HEMOGLOBIN 11.5 GM/dL (10.7-15.3); MCH 28.9 pg (25.7-33.7); MCHC 32.4 g/dl (32.0-36.0); MEAN CELL VOLUME 89.2 fl (80-96); MEAN PLT VOLUME 8.6 fl (7.5-11.1); PLATELET COUNT 160 10^3/uL (134-434); RBC 3.97 M/mm3 (3.60-5.2); RDW 14.3 % (11.6-15.6); WHITE BLOOD COUNT 4.1 K/mm3 (4.0-10.0)
[2024-04-18 08:55] LABS: BLOOD UREA NITROGEN 21.8 mg/dL (7-18); MAGNESIUM 2.1 mg/dL (1.8-2.4)
[2024-04-18 08:57] LABS: ALBUMIN 3.6 g/dl (3.4-5.0); CHOLESTEROL 166 mg/dL (50-200)
[2024-04-18 08:58] LABS: CREATININE 1.1 mg/dL (0.55-1.3)
[2024-04-18 08:59] LABS: LDL CHOLESTEROL (ONLY SJRH) 73 mg/dL (5-100); PHOSPHOROUS 3.3 mg/dL (2.5-4.9); TOT PROT 6.4 g/dl (6.4-8.2)
[2024-04-18 09:00] LABS: HDL CHOLESTEROL 97 mg/dL (40-60)
[2024-04-18] MEDS: MEMANTINE HCL 10 MG TABLET (FP) PO SCH (10:19)
[2024-04-18 15:20] VITALS: BP 113/65; PULSE 66; TEMP 97.9
[2024-04-18] MEDS: LIDOCAINE 5% TOPICAL PATCH TP SCH (16:53)
[2024-04-18] MEDS ORDERED: LIDOCAINE PATCH REMOVAL MC SCH (22:00)
== END 2024-04-18 19:34 | disposition home or self-care (01) ==
LOC: JER 07:44 → JERBED 13:14 → J4S 18:30
PROVIDERS: ADMIT Internal Medicine; ATTEND Internal Medicine
PROC: 3E033NZ Introduction of Analgesics, Hypnotics, Sedatives into Peripheral Vein, Percutaneous Approach (ICD-10-PCS; principal; 2024-04-17)
PROC: 3E023GC Introduction of Other Therapeutic Substance into Muscle, Percutaneous Approach (ICD-10-PCS; 2024-04-17)
PROC: 3E033GC Introduction of Other Therapeutic Substance into Peripheral Vein, Percutaneous Approach (ICD-10-PCS; 2024-04-17)
PROC: 3E033GC Introduction of Other Therapeutic Substance into Peripheral Vein, Percutaneous Approach (ICD-10-PCS; 2024-04-17)
DX: I50.30 Unspecified diastolic (congestive) heart failure (principal); E78.5 Hyperlipidemia, unspecified; I34.1 Nonrheumatic mitral (valve) prolapse; I11.9 Hypertensive heart disease without heart failure; E03.9 Hypothyroidism, unspecified; Z88.2 Allergy status to sulfonamides; Z88.8 Allergy status to other drugs, medicaments and biological substances; M19.90 Unspecified osteoarthritis, unspecified site; R07.89 Other chest pain
CPT/HCPCS: 36415; 71045-TC-FY; 80053; 80061; 83036; 83735; 83880; 84100; 84436; 84439; 84443; 84484; 85025; 85027; 85610; 85730; 86850; 86900; 86901; 93005; 93010; 93306-TC; 96365; 96372; 96375; 99285-25; G0378; J0131